=== PATIENT | female | born 1990 | race Caucasian/White ===

== ENCOUNTER 2019-02-26 13:23 | Emergency (ER) | payer OTHER, SELFPAY ==
[2019-02-26 13:24] VITALS: BP 132/78; PULSE 107; RESP 16; TEMP 36.7; O2SAT 95; BMI 30.2
--- NOTE | 2019-02-26 14:21 | ED.DCSUM_ITS ---
History of Present Illness Chief Complaint: Head Injury Informant: Patient Onset: Today Context: Sudden Onset Quality: Laceration forehead x2 Location: Left forehead Current Severity: Mild Maximum Severity: Moderate Worsened by: Adherence of towel to wound Relieved by: Nothing Associated Symptoms: No symptoms of concussion Narrative: Patient is a 28-year-old who was rushing to get both wounds to child's birthday constitution party. The trunk struck her forehead. She had no loss conscious. She denies any ocular, visual or auditory symptoms. She denies neck pain. Denies paresthesia, anesthesia motors. She denies photophobia. She denies feeling foggy or disoriented. There is been no nausea or vomiting. Tetanus status needs updated. - Past Medical History (1) No significant past medical history Status: Acute Past Medical History - Allergies and Home Meds Allergies/Adverse Reactions: Allergies No Known Allergies Allergy (Verified 02/26/19 13:28) Primary Care Physician: Tristin Verdugo DO [Primary Care Provider] - Prior records reviewed: Yes - [facility] my chart Past Medical History: None Lives: With Family Smoking Status: Never smoker Alcohol: None Review of Systems General: Denies: Chills, Fever, Sweats Eyes: Denies: Visual changes - bilaterally, Blurred Vision - bilaterally, Diplopia ENT: Denies: Bilateral ear pain, Rhinorrhea, Sore throat Gastrointestinal: Reports: Nausea, Vomiting Skin: Reports: Rash, Abrasions - Patient has a 3 cm x 0.5 cm tissue avulsion near the hairline. There is a 2 cm gaping wound with loss of tissue above the left brow., Wounds Hematologic: Reports: Easy bruising, Easy bleeding Allergy: Reports: Uticaria, Swelling of the mouth Physical Exam Vital Signs/Narrative: Vital Signs Temp Pulse Resp BP Pulse Ox 02/26/19 13:24 98.0 F 107 H 16 132/78 H 95 Inital Vital Signs reviewed: Yes General: Well nourished, Well developed, Acute Distress - Patient is visibly upset Head: Normocephalic, Trauma, Tenderness - There is no palpable depression. There is no clinical findings of basal skull fracture. Eyes: Perrl, EOMI. Negative for: Pale conjunctiva, Scleral icterus - There is no subconjunctival hemorrhage ENT: Moist mucous membranes, No rhinorrhea, TM's clear Neck: Supple, Nontender, No lymphadenopathy, No JVD, - - C-spine was cleared per Nexus criteria Cardiovascular: Regular rate, Regular rhythm, No murmurs Respiratory: No distress, CTA bilaterally, Chest nontender Neurological: Alert, Oriented x3, Cranial nerves II-XII grossly intact, Normal Strength, Normal Sensation, Normal DTR - There was no clonus or Babinski sign, Normal Gait Diagnostic/Tx/Re-eval - Medical Decision Making Patient has 2 lacerations. The inferior laceration will require repair. She was informed that the upper 1 may require referral to plastic surgeon. Procedures - Lacerations No standard instances Length: 0.79 in - Gaping with tissue loss Depth: There is a superior 3.5 cm laceration with tissue loss and down to dermis/subcutaneous tissue. This was not repaired Shape: Gaping laceration with tissue loss Prep: Sterile Conditions, Negin-Carlosns Laceration repair: Debrideded, - - Supratrochlear and supraorbital nerve block Irrigated (ml): 200 Number of Sutures/Niyah: 4 Suture Information: Vicryl, 6-0 ED Disposition - Plan for ED Patient: Disposition: Home or Assisted Living Diagnosis: Laceration of forehead, Tissue avulsion forehead Instructions: ED Laceration Facial Sutr Tape Referrals: Anant Boston MD [STAFF PHYSICIAN] - 1-2 Weeks Tristin Verdugo DO [Primary Care Provider] - 3-5 Days suture removal Additional Instructions: Clean wound that was sutured with peroxide and Q-tip 3 times a day then apply bacitracin ointment.
[2019-02-26 14:36] VITALS: PULSE 101; RESP 17; O2SAT 98
== END 2019-02-26 14:39 | disposition home or self-care (01) ==
PROVIDERS: Emergency Provider Emergency Medicine; Family Provider Student in an Organized Health Care Education/Training Program; PCP Student in an Organized Health Care Education/Training Program
DX: S01.81XA Laceration without foreign body of other part of head, initial encounter (principal); W22.8XXA Striking against or struck by other objects, initial encounter; Y93.89 Activity, other specified; Y92.9 Unspecified place or not applicable
CPT/HCPCS: 12011; 99283

== ENCOUNTER → 2019-06-01 13:01 | Outpatient (CLI) | payer OTHER, SELFPAY ==
[2019-06-01 12:37] VITALS: BMI 30.2
--- NOTE | 2019-06-01 13:05 | RAD_ITS ---
STUDY: X-RAY - RIGHT ANKLE REASON FOR EXAM: Female, 28 years old. Lateral swelling due to a twisting injury. TECHNIQUE: 3 view(s) of the ankle. COMPARISON: None. FINDINGS: Normal visualized distal tibia and fibula. Normal medial and lateral malleoli. Normal tibiotalar articulation and ankle mortise. Normal visualized talus and calcaneus. The visualized subtalar, talonavicular, calcaneocuboid and tarsal articulations are normal. Lateral soft tissue swelling. RAD/Ankle min 3 Views IMPRESSION: Lateral soft tissue swelling. Electronically Signed: Moe Rudd, at 14:20 EDT , Service support ,
--- NOTE | 2019-06-01 13:05 | RAD_ITS ---
STUDY: X-RAY - RIGHT FOOT CLINICAL: Female, 28 years old. Lateral swelling following a sprain. TECHNIQUE: 3 view(s) of the foot. COMPARISON: None. FINDINGS: Questionable nondisplaced avulsion fracture of the superior dorsal aspect of the talus. Normal visualized subtalar, talonavicular, calcaneocuboid, tarsal and tarsometatarsal articulations. Normal metatarsi. Normal metatarsophalangeal joint of the great toe. Normal tibial and fibular sesamoid bones. Normal interphalangeal joint of the great toe. Normal phalanges of the great toe. Normal second through fifth metatarsophalangeal joints. Normal interphalangeal joints and phalanges of the lesser toes. Lateral soft tissue swelling. RAD/Foot min 3 Views IMPRESSION: Soft tissue swelling. Questionable nondisplaced avulsion fracture along the superior dorsal aspect of the talus. Electronically Signed: Moe Rudd, at 14:21 EDT , Service support ,
== END ==
PROVIDERS: Family Provider Student in an Organized Health Care Education/Training Program; PCP Student in an Organized Health Care Education/Training Program; Referring Provider Physician Assistant; Visit Provider Physician Assistant
DX: S99.921A Unspecified injury of right foot, initial encounter (principal); S99.911A Unspecified injury of right ankle, initial encounter
CPT/HCPCS: 73610; 73630

== ENCOUNTER → 2020-08-03 17:12 | Outpatient (CLI) | payer OTHER, SELFPAY ==
[2019-06-01 12:37] VITALS: BMI 30.2
== END ==
PROVIDERS: PCP Student in an Organized Health Care Education/Training Program
DX: Z20.828 Contact with and (suspected) exposure to other viral communicable diseases (principal)
CPT/HCPCS: 87635; C9803; U0003

== ENCOUNTER 2020-08-29 18:46 | Emergency (ER) | payer OTHER, SELFPAY ==
[2019-06-01 12:37] VITALS: BMI 30.2
[2020-08-29 18:47] VITALS: BP 136/84; PULSE 107; RESP 18; TEMP 36.6; O2SAT 100; BMI 23.6
--- NOTE | 2020-08-29 18:59 | EKG12_ITS ---
Test Reason : CP Blood Pressure : / mmHG Vent. Rate : 082 BPM Atrial Rate : 082 BPM P-R Int : 132 ms QRS Dur : 074 ms QT Int : 350 ms P-R-T Axes : 019 066 041 degrees QTc Int : 408 ms Normal sinus rhythm Normal ECG Confirmed by PROSPER JONES, BERNICE ([id number]), editor school photograph YAHAIRA QUARLES ([id number]) on 09/04/2020 8:10:31 AM Referred By: GABRIELLE Confirmed By:BERNICE CHENG MD
--- NOTE | 2020-08-29 19:00 | CT_ITS ---
STUDY: CTA CHEST REASON FOR EXAM: Female, 29 years old. DYSPNEA, CP X 3 DAYS, FEVER, BACK PAIN, N/T L LEG RADIATION DOSAGE (If Supplied By Facility): CTDIvol = ( 4.855 ) mGy, DLP = ( 167.04 ) mGycm TECHNIQUE: The examination was performed with the intravenous administration of IV 75mL Isovue-370. Post-processing of the angiographic images was performed, with multiplanar reformation and 3D reconstruction. Individualized dose optimization techniques were used for this CT. COMPARISON: None. FINDINGS: Normal enhancement of the main pulmonary artery and right and left pulmonary arteries. Normal enhancement of the bilateral peripheral pulmonary arteries. There is no demonstrated pulmonary embolism. Normal thoracic aorta and visualized great vessels. There is no demonstrated aortic dissection. Normal heart and pericardium. Normal mediastinum. Normal hilar regions. Normal visualized trachea and bronchi. The lungs are well expanded. Normal pulmonary parenchyma. Normal pleura. Normal chest wall structures. Normal osseous structures. Normal visualized upper abdomen. CT/CTA Chest W/WO Contrast IMPRESSION: Normal CTA chest examination, without a demonstrated pulmonary embolism or arterial dissection. Electronically Signed: Ginette Flanagan MD at 20:27 EDT , Service support ,
--- NOTE | 2020-08-29 19:04 | ED.DCSUM_ITS ---
History of Present Illness Chief Complaint: Chest Pain Informant: Patient Onset: Days Context: Gradual Onset Timing: Intermittent Current Severity: Moderate Maximum Severity: Moderate Narrative: The patient is a 29-year-old female with no significant medical history the presents to the emergency department multiple complaints. The patient had mechanical fall in June. She struck her leg against the ladder for a trampoline. She states that she had ecchymosis and bruising. She states that since that time, she will have intermittent tingling around the lateral aspect of her left upper jim. She states it would seem to go away. Over the past 2 days, she states is been with increasing frequency. She denies any weakness in the leg. She denies any pain in her back. She is also concerned because for 2 weeks, she has had intermittent chest pain. She states that started after she was doing some sprints with her dog. She describes a sharp pain bandlike around her chest. A few days later, she began to have substernal heaviness. She states it would wax and wane. She is never had pain like this before. She has felt like she is had a low-grade fever, but never higher than 100. She denies weight loss or night sweats. She denies adenopathy. Prior similar symptoms: No Recent Illness/Hospitalization: No Past Medical History - Allergies and Home Meds Allergies/Adverse Reactions: Allergies No Known Allergies Allergy (Verified 08/29/20 18:46) Primary Care Physician: Tristin Verdugo DO [Primary Care Provider] - Prior records reviewed: Yes Past Medical History: None Surgical History: no surgical history Smoking Status: Never smoker Review of Systems General: Reports: Fever. Denies: Chills, Sweats Eyes: Denies: Visual changes - bilaterally, Diplopia ENT: Denies: Rhinorrhea, Sore throat Cardiovascular: Reports: Chest pain. Denies: Palpitations Respiratory: Reports: Cough. Denies: Dyspnea, Dyspnea on exertion Gastrointestinal: Denies: Abdominal pain, Nausea, Vomiting, Diarrhea, Melena, Hematochezia Genitourinary: Denies: Dysuria, Hematuria, Frequency Musculoskeletal: Reports: Myalgias. Denies: Back pain, Extremity Pain Skin: Denies: Rash, Wounds Neurological: Denies: Headache, Weakness, Numbness Physical Exam Vital Signs/Narrative: Vital Signs Temp Pulse Resp BP Pulse Ox 08/29/20 18:47 97.9 F 107 H 18 136/84 H 100 Inital Vital Signs reviewed: Yes General: Well nourished, Well developed, No Acute Distress Head: Normocephalic, Atraumatic Eyes: Perrl, EOMI ENT: Moist mucous membranes, No rhinorrhea Neck: Supple, Nontender Cardiovascular: Regular rate, Regular rhythm, No murmurs Respiratory: No distress, CTA bilaterally, Chest nontender Abdomen: Soft, Nontender, Nondistended, Normal bowel sounds Back: Nontender, Normal Inspection Extremities: Nontender, No edema Skin: Normal color, No rash Neurological: Alert, Oriented x3, Cranial nerves II-XII grossly intact, Normal Strength, Normal Sensation Psychological: Normal affect, Normal Mood Diagnostic/Tx/Re-eval Clinical Impression(s) from Imaging Studies Chest CTA 08/29/20 19:00 IMPRESSION: Normal CTA chest examination, without a demonstrated pulmonary embolism or arterial dissection. Electronically Signed: Ginette Flanagan MD at 20:27 EDT , Service support , Abnormal Lab Results 08/29/20 08/29/20 08/29/20 19:10 19:10 20:04 WBC 5.9 RBC 4.61 Hgb 13.5 Hct 41.0 MCV 88.9 MCH 29.3 MCHC 32.9 RDW Std Deviation 39.0 RDW Coeff of [place] 12.1 Plt Count 292 MPV 9.2 Immature Gran % (Auto) 0.200 Neut % (Auto) 53.4 Lymph % (Auto) 38.9 [place] % (Auto) 5.4 Eos % (Auto) 1.4 Baso % (Auto) 0.7 Absolute Neuts (auto) 3.2 Absolute Lymphs (auto) 2.30 Nucleated RBC % 0 Sodium 136 Potassium 3.3 L Chloride 102 Carbon Dioxide 28.0 Anion Gap 6 BUN 14 Creatinine 0.65 Estim Creat Clear Calc 107.54 Est GFR (MDRD) Af Amer 141 Est GFR (MDRD) Non-Af 116 BUN/Creatinine Ratio 21.6 H Glucose 103 Calcium 8.9 Total Bilirubin 0.80 AST 10 L ALT 26 Alkaline Phosphatase 72 Troponin I < 0.015 Total Protein 8.5 H Albumin 4.2 Globulin 4.3 H Albumin/Globulin Ratio 1.0 Urine Test Negative - Medical Decision Making The patient presents with intermittent chest pain and exertional dyspnea. She is also had tingling around the left head of the fibula after an injury. She has normal pulses in the lower extremities. She has normal sensation. There is no weakness of dorsiflexion, plantar flexion, or extensor hallucis longus. There is no palpable cord. She is had no back pain. I do suspect this might be a peroneal nerve neuropraxia from her prior injury. As far as her exertional chest pain and shortness of breath, metabolic work-up was pursued. EKG demonstrated sinus rhythm without acute ischemia. The patient was mildly tachycardic and I did not feel the d-dimer given her symptoms would be the appropriate test. IV was established. Screening labs including cardiac enzymes are normal. Patient underwent CTA. She has a normal cardiac silhouette, no pericardial effusion, no pneumothorax, and no pulmonary embolus. There is no lymphadenopathy or increased mediastinal girth. I do feel this may be pleurisy. I do not suspect a dangerous process especially given the chronicity of her symptoms and her negative work-up. At this point, I do feel that she is safe for outpatient follow-up. She is comfortable with this plan of care. Impression 1. Noncardiac chest pain 2. Dyspnea ED Disposition - Plan for ED Patient: Instructions: ED Chest Pain Pleurisy Prescriptions: Naproxen [Naprosyn] 500 mg PO BID PRN #20 tab Prescription Printed Referrals: Tristin Verdugo DO [Primary Care Provider] -
[2020-08-29 19:11] VITALS: BP 122/87; PULSE 82; RESP 14; O2SAT 99
[2020-08-29 19:17] LABS: Absolute Neutrophil Count 3.2 X10^3/uL (2.0-7.7); Basophil# 0.04 X10^3/uL; Basophil% 0.7 % (0-1); Eosinophil# 0.08 X10^3/uL; Eosinophils% 1.4 % (0-5); Hemoglobin 13.5 g/dL (12.0-15.0); Lymphocyte % 38.9 % (19-41); Mean Corp Hgb Conc 32.9 g/dL (32-36); Mean Corpuscular Hgb 29.3 pg (27.0-32.0); Mean Corpuscular Volume 88.9 fL (81-99); Mean Platelet Vol. 9.2 fl (6.2-12.0); Monocyte# 0.32 X10^3/uL; Monocyte% 5.4 % (0-10); NRBC Flagged by Analyzer 0 % (0-5); Neutrophil # 3.17 X10^3/uL (2.7-7.7); Neutrophil % 53.4 % (47-70); Platelet Count 292 K/mm3 (150-450); RBC Distribution Width CV 12.1 % (11.6-14.6); Red Blood Count 4.61 M/mm3 (4.2-5.4); White Blood Count 5.9 K/mm3 (4.4-11.0)
[2020-08-29 19:41] LABS: AST(SGOT) 10 U/L (15-37); Alanine Aminotransfer ALT/SGPT 26 U/L (13-56); Albumin, Serum 4.2 g/dL (3.2-5.0); Alkaline Phosphatase 72 U/L (45-117); Anion Gap 6 (5-15); BUN 14 mg/dL (7-18); BUN/Creat Ratio 21.6 RATIO (10-20); Calcium,Total 8.9 mg/dL (8.5-10.1); Chloride 102 mmol/L (98-107); Creatinine, Serum 0.65 mg/dL (0.55-1.02); EST Glomerular Filtration Rate 116 mL/min (>60); Est Glom Filt Rate - Afr Amer 141 mL/min (>60); Estimated Creatinine Clearance 107.54 ml/min; Globulin 4.3 g/dL (2.2-4.2); Glucose 103 mg/dL (74-106); Potassium 3.3 mmol/L (3.5-5.1); Protein, Total 8.5 g/dL (6.4-8.2); Sodium Level 136 mmol/L (136-145)
[2020-08-29 20:14] LABS: Internal QC Validated? YES +Cl - CLEAR BKGD; Pregnancy, Urine Negative Negative
[2020-08-29 20:54] VITALS: BP 122/86; PULSE 89; RESP 16
== END 2020-08-29 21:06 | disposition home or self-care (01) ==
PROVIDERS: Emergency Provider Emergency Medicine; PCP Student in an Organized Health Care Education/Training Program
DX: R07.89 Other chest pain (principal); R06.00 Dyspnea, unspecified
CPT/HCPCS: 71275; 80053; 81025; 84484; 85025; 93005; 96360; 99281; 99285; J7040; Q9967; A4216

== ENCOUNTER 2021-05-03 13:05 | Emergency (ER) | payer OTHER, SELFPAY ==
[2021-05-03 11:27] VITALS: BMI 23.6
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
[2021-05-03 13:12] VITALS: BP 117/88; PULSE 94; RESP 17; TEMP 36.9; O2SAT 100; BMI 23.0
== END 2021-05-03 14:48 | disposition home or self-care (01) ==
PROVIDERS: Emergency Provider Emergency Medicine; PCP Student in an Organized Health Care Education/Training Program
DX: S00.83XA Contusion of other part of head, initial encounter (principal); S20.219A Contusion of unspecified front wall of thorax, initial encounter; V43.52XA Car driver injured in collision with other type car in traffic accident, initial encounter
CPT/HCPCS: 71101; 99284

== ENCOUNTER 2022-02-10 10:30 | Outpatient (RCR) | payer OTHER, SELFPAY | END 2022-02-13 23:59 | LOC: DC 10:30 | PROVIDERS: PCP Student in an Organized Health Care Education/Training Program; Referring Provider Obstetrics & Gynecology; Visit Provider Obstetrics & Gynecology | DX: Z71.3 Dietary counseling and surveillance (principal); O24.419 Gestational diabetes mellitus in pregnancy, unspecified control | CPT/HCPCS: 97802; G0108 ==

== ENCOUNTER 2022-02-24 10:48 | Outpatient (RCR) | payer OTHER, SELFPAY | END 2022-03-15 23:59 | LOC: DC 10:48 | PROVIDERS: PCP Student in an Organized Health Care Education/Training Program; Referring Provider Obstetrics & Gynecology; Visit Provider Obstetrics & Gynecology | DX: Z71.3 Dietary counseling and surveillance (principal); O24.419 Gestational diabetes mellitus in pregnancy, unspecified control ==

== ENCOUNTER 2022-03-05 17:20 | Inpatient (IN) | payer OTHER, SELFPAY ==
[2022-03-05] VITALS (27 sets, daily range): BP systolic 132–143; BP diastolic 62–80; PULSE 80–98; TEMP 36.6–36.7; O2SAT 82–100; BMI 30.4
[2022-03-05] MEDS: Lactated Ringers 1,000 ML 50 ML IV (17:40)
[2022-03-05] MEDS: Oxytocin 30 units/NS 500 ml 30 UNITS/500 ML IV.SOLN 334 UNITS IV (18:07)
--- NOTE | 2022-03-05 18:11 | PCM.HP.OB ---
HPI - General General Date of Admission: 03/05/22 HPI Narrative OSVALDO PIERCE, is a 31 F @ 39 weeks who presents with SROM 3pm and in active labor 8cm. Maternal Data Information Final JOSEPHINE: 03/11/22 Final JOSEPHINE Source: US <20 weeks Gestational age: 39.1 PFSH PFSH Home Medications multivitamin 1 cap PO DAILY 06/01/19 [History Last Taken Unknown] naproxen 500 mg PO BID PRN #20 tab 08/29/20 [Rx Last Taken Unknown] azithromycin 250 mg tablet See Rx Instructions PO .COMPLEX #6 tab 05/03/21 [Rx Last Taken Unknown] Allergy/AdvReac Type Severity Reaction Status Date / Time No Known Allergies Allergy Verified 05/03/21 11:27 Family History Other Anemia Heart disease Hypertension Suicide attempt Social History Smoking Status: Never smoker alcohol intake: never substance use type: does not use additional social history: DOES NOT USE ASPIRIN DOES USE IBUPROFEN History Elective abortions Hx Para 0 Spontaneous abortions Hx # Term Pregnancies Ectopic pregnancies Hx # Pregnancies Multiple births # of living children Physical Exam Const alert and oriented x3 General Appearance: cooperative HEENT normocephalic GI GI Narrative: Gravid, non tender to palpation. OB / External & Speculum: external exam normal Extremity normal to inspection Skin no rashes or lesions noted Neuro oriented x3 and CN's II-XII intact bilaterally Psych Appearance: grossly normal Labs Labs Labs: Blood Type B POSITIVE Antibody Screen NEGATIVE Hct 41.0 % (37-47) Hgb 13.5 g/dL (12.0-15.0) Rhogam given: No Assessment & Plan (1) Active labor at term: (2) Gestational diabetes: QUALIFIERS: Gestational diabetes mellitus control: diet-controlled Trimester: third trimester Qualified Code(s): O24.410 - Gestational diabetes mellitus in , diet controlled PLAN: Admit to L&D [place] FHR/TOCO Monitor VS Anticipate
--- NOTE | 2022-03-05 18:12 | EX.PCM.OBRPT ---
Assessment & Plan (1) Vaginal delivery: Vaginal Delivery Maternal Presentation Maternal Presentation: Active Labor and Spontaneous Rupture of Membranes Operative Information Date of Procedure: 03/05/22 Pre-Operative Diagnosis: term gestation 39 weeks, GDMA1, active labor Post-Operative Diagnosis: same, live female Surgery / Procedure Performed: Spontaneous Vaginal Delivery Type of Anesthesia: None Estimated Blood Loss: 200 Time of Delivery: 18:01 Findings Description of Procedure: I was called notified the patient was complete and +2. Upon my arrival with good maternal pushing efforts the infant's head was delivered without complication. Gentle downward traction and good maternal pushing efforts over the anterior shoulder followed by the rest the 's body. The infant was placed on the mother's chest he was vigorous at time of . Delayed cord clamping until pulsation was stopped was performed per mother's request. Perineum and vagina were intact. Placenta was delivered intact without complication. Presentation: Vertex Amniotic Membrane Rupture Type: Spontaneous Amniotic Fluid Description: Clear Placental Delivery Description: Spontaneous Placenta Disposition: [facility] Specimen(s) Removed: placenta Cord Vessel Description: 3 Vessels Cord Entanglement: None Nuchal Cord Compression: Without compression A Gender: Female (1 minute): 9 (5 minute): 10 Delayed Cord Clamping: Yes Post Vaginal Delivery Medications Given After Delivery: IV Pitocin Episiotomy Description: None Laceration: None Complication Complications: None
[2022-03-05 18:19] LABS: Absolute Lymphocyte Count 2.82 X10^3/uL (0.83-4.51); Basophil# 0.04 X10^3/uL; Basophil% 0.3 % (0-1); Eosinophil# 0.04 X10^3/uL; Eosinophils% 0.3 % (0-5); Hematocrit 36.2 % (37-47); Hemoglobin 12.3 g/dL (12.0-15.0); Lymphocyte # 2.82 X10^3/ul (0.83-4.51); Lymphocyte % 18.8 % (19-41); Mean Corpuscular Hgb 28.7 pg (27.0-32.0); Mean Corpuscular Volume 84.4 fL (81-99); Mean Platelet Vol. 10.7 fl (6.2-12.0); Monocyte# 1.08 X10^3/uL; Monocyte% 7.2 % (0-10); NRBC Flagged by Analyzer 0 % (0-5); Neutrophil # 10.99 X10^3/uL (2.7-7.7); Platelet Count 288 K/mm3 (150-450); RBC Distribution Width CV 14.5 % (11.6-14.6); RBC Distribution Width SD 44.7 fl (35.1-43.9); Red Blood Count 4.29 M/mm3 (4.2-5.4)
[2022-03-05 18:35] LABS: Bedside Glucose 95 mg/dL (74-106)
[2022-03-05] MEDS: Ibuprofen 600 MG Tablet PO (22:11)
[2022-03-06 00:15] VITALS: BP 143/78; PULSE 101; RESP 16; TEMP 36.1
[2022-03-06 04:00] VITALS: BP 116/64; PULSE 97; RESP 15; TEMP 36.9
[2022-03-06 06:21] LABS: Bedside Glucose 81 mg/dL (74-106)
[2022-03-06 07:39] VITALS: BP 126/81; PULSE 82; RESP 16; TEMP 36.4
[2022-03-06 11:56] VITALS: BP 118/78; PULSE 70; RESP 16; TEMP 36.5
--- NOTE | 2022-03-06 12:57 | PN.OBGYN_ITS ---
Subjective Subjective pain well controlled, average lochia Objective Data Objective Data Vital Signs: Vital Signs Temp Pulse Resp BP Pulse Ox 97.7 F L 70 16 118/78 97 03/06/22 11:56 03/06/22 11:56 03/06/22 11:56 03/06/22 11:56 03/06/22 09:45 Oxygen Delivery Method Room Air Weight: 78.1 kg Body Mass Index (BMI) 30.4 Intake & Output: Intake and Output for Last 24 Hours 03/04/22 03/05/22 03/06/22 23:59 23:59 23:59 Intake Total 517.5 / 517.5 Balance 517.5 / 517.5 Lab / Micro Data Result Diagrams: 03/05/22 17:40 Labs: Laboratory Results - last 24 hr 03/05/22 17:40: WBC 15.0 H, RBC 4.29, Hgb 12.3, Hct 36.2 L, MCV 84.4, MCH 28.7, MCHC 34.0, RDW Std Deviation 44.7 H, RDW Coeff of [place] 14.5, Plt Count 288, MPV 10.7, Immature Gran % (Auto) 0.400, Neut % (Auto) 73.0 H, Lymph % (Auto) 18.8 L, [place] % (Auto) 7.2, Eos % (Auto) 0.3, Baso % (Auto) 0.3, Absolute Neuts (auto) 11.0 H, Absolute Lymphs (auto) 2.82, Nucleated RBC % 0 03/05/22 17:40: Blood Type B POSITIVE, Antibody Screen NEGATIVE 03/05/22 18:26: POC Glucose 95 03/06/22 06:10: POC Glucose 81 Physical Exam Const alert and no apparent distress Narrative: Fundus firm, below umbilicus. Assessment & Plan (1) Vaginal delivery: PLAN: PPD#1 s/p and doing well desires d/c home today
--- NOTE | 2022-03-06 12:58 | PCM.DC.SUM ---
Providers Date of Admission: 03/05/22 Primary Care Physician: Dr. Tristin Verdugo DO Reason For Visit: VAGINAL DELIVERY Diagnosis Discharge Diagnosis (1) Vaginal delivery: Status: Acute Code(s): O80 - Encounter for full-term uncomplicated delivery Medications at Discharge Home Medications multivitamin 1 cap PO DAILY 06/01/19 iron 65 tab PO 03/05/22 Hospital Course Operations None Procedures None Summary of Care Provided Hospital Course: 31-year-old 2 para 1 admitted at 39+ weeks for spontaneous labor. She had a vaginal delivery on 03/05/2022 to without complication. By day #1 she was doing well, was breast-feeding and doing well and patient desired discharge home Weight / BMI Weight Weight: 78.1 kg Body Mass Index (BMI) 30.4 ABG / Lab / Microbiology Data Result Diagrams: 03/05/22 17:40 Laboratory: Laboratory Results - last 24 hr 03/05/22 17:40: WBC 15.0 H, RBC 4.29, Hgb 12.3, Hct 36.2 L, MCV 84.4, MCH 28.7, MCHC 34.0, RDW Std Deviation 44.7 H, RDW Coeff of [place] 14.5, Plt Count 288, MPV 10.7, Immature Gran % (Auto) 0.400, Neut % (Auto) 73.0 H, Lymph % (Auto) 18.8 L, [place] % (Auto) 7.2, Eos % (Auto) 0.3, Baso % (Auto) 0.3, Absolute Neuts (auto) 11.0 H, Absolute Lymphs (auto) 2.82, Nucleated RBC % 0 03/05/22 17:40: Blood Type B POSITIVE, Antibody Screen NEGATIVE 03/05/22 18:26: POC Glucose 95 03/06/22 06:10: POC Glucose 81 D/C Instructions Discharge Diet: No restrictions May resume sexual activity in: 6 weeks Call your doctor if your incision/area has: Continuous Slow Oozing, Sudden Increased Bleeding, Foul Smelling Discharge and Swelling at the incision site Call your doctor if you observe: Fever of 101 or Higher and Inability to urinate Please Follow Up With: Susie Schafer MD When: Follow up with our office in 1-2 and 6 weeks or as needed. [phone] Meaningful Use Info Meaningful Use Diagnoses (Choose all that apply): None applicable Discharge Plan Admission Admit Date/Time: 03/05/22 17:20 Primary Reason for Your Visit: vaginal delivery Attending Provider: Meghna Green Primary Care Provider: Tristin Verdugo Discharge Orders/Prescriptions Prescriptions: No Action multivitamin capsule capsule 1 cap PO DAILY RF: 0 iron 50 mg iron Tablet 65 tab PO RF: 0 Referrals / Follow Up: Tristin Verdugo DO [Primary Care Provider] - Disposition Disposition (needs filled in before D/C Order can be placed): Home, Self Care
[2022-03-06 16:56] VITALS: BP 135/85; PULSE 72; RESP 16; TEMP 36.4; O2SAT 97
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
--- NOTE | 2022-03-06 19:47 | NURSING ---
This RN has reviewed and agrees with charting completed by Tashia Anguiano, orienting RN
--- NOTE | 2022-03-10 15:45 | NURSING ---
Follow up phone call attempted, no answer, left message
== END 2022-03-06 19:45 | disposition home or self-care (01) | DRG 807 ==
PROVIDERS: Admitting Provider Obstetrics & Gynecology; PCP Student in an Organized Health Care Education/Training Program; Visit Provider Obstetrics & Gynecology
DX: O42.02 Full-term premature rupture of membranes, onset of labor within 24 hours of rupture (principal); Z37.0 Single live birth; O24.410 Gestational diabetes mellitus in pregnancy, diet controlled; Z3A.39 39 weeks gestation of pregnancy
CPT/HCPCS: 59025; 59050; 82962; 85025; 86850; 86900; 86901; 99218; J7120; G0378

== ENCOUNTER 2022-12-27 17:52 | Emergency (ER) | payer OTHER, SELFPAY ==
[2022-12-27 17:53] VITALS: BP 144/102; PULSE 95; RESP 18; TEMP 36.5; O2SAT 100; BMI 24.7
--- NOTE | 2022-12-27 18:15 | ED.VIS.FEGU ---
HPI HPI - Female History of Present Illness Chief Complaint: Vag Bleeding Informant: patient Pain Pain: Negative for Pelvic Pain Bleeding Issue: Positive for Vaginal bleeding Onset: Today Context: Gradual Onset Timing: Intermittent Current Severity: Mild Associated Symptoms Associated Symptoms: Negative for Dysuria, Frequency or Urgency P: 2 Ab: 0 Narrative Narrative: 32-year-old female noticing a past medical history. 2 days ago on had her IUD removed at her [facility] OPERATOR's office. It had been in a month. She was having side effects to it and had it taken out. Since it was removed she has had some mild vaginal bleeding. Said she felt feverish but her temperature was only 99.5. Mild chills. No dysuria. No discharge. Recently had a cold. Denies any abdominal pain or shortness of breath. No earache or sore throat. Prior similar symptoms: Yes Recent Illness/Hospitalization: No PFSH PFS Medical History (Updated 12/27/22 @ 19:[address] Leonard Alcocer MD) Gestational diabetes Right ankle sprain Right foot sprain Vaginal delivery Home Medications NK 12/27/22 [History Last Taken Unknown] Allergy/AdvReac Type Severity Reaction Status Date / Time No Known Allergies Allergy Verified 12/27/22 17:53 Family History Other Anemia Heart disease Hypertension Suicide attempt Social History Smoking Status: Never smoker alcohol intake: never substance use type: does not use additional social history: DOES NOT USE ASPIRIN DOES USE IBUPROFEN ROS ROS ED ROS Narrative Chills. Subjective fever. Vaginal bleeding. Review of Systems ROS Unobtainable: Denies due to encephalopathy Constitutional Constitutional ED: Denies chills or fever(s) Eyes Eyes: Denies blurry vision ENT ENT ED: Denies ear pain Cardiovascular Cardiovascular: Denies chest pain Respiratory/Chest Respiratory/Chest: Denies cough or dyspnea Gastrointestinal Gastrointestinal: Denies abdominal pain, constipation, diarrhea, melena, nausea or vomiting Genitourinary Genitourinary ED: Denies dysuria or hematuria Musculoskeletal Musculoskeletal: Denies arthralgias Integumentary Denies abscess Neurologic Neurologic: Denies headache(s) Psychiatric Psychiatric: Denies anxiety Endocrine Endocrinology: Denies heat intolerance Hematologic/Lymphatic Hematologic/Lymphatic: Denies easy bleeding Allergic/Immunologic Allergic/Immunologic ED: Denies mouth swelling or tongue swelling EXAM Physical Exam Narrative Exam Narrative: 32-year-old female no acute distress. Vital signs stable afebrile. Her current temperature is 97.7. She has not taken any antipyretics. She does not look septic or toxic. She is not dehydrated. She is in no distress. H EENT exam unremarkable. Neck nontender no lymphadenopathy. Lungs clear to auscultation. Heart regular rhythm no murmur. Abdomen soft nontender. Normal bowel sounds no peritoneal signs. Moving all 4 extremities. Calves are nontender without edema. Neurologically she is awake and alert. Const Vital Signs: 12/27/22 17:53 Temperature 97.7 F L Temperature Source Temporal Pulse Rate 95 Respiratory Rate 18 Blood Pressure 144/102 H Blood Pressure Mean 116 Pulse Ox 100 Oxygen Delivery Method Room Air Positive well nourished and well developed; Negative for obese, cachectic, contractures or unkempt General Appearance ED: well developed and NAD; Negative for unkempt, cachectic, contractures or pallor Nutritional Appearance: Negative for cachectic or obese HEENT Reports moist mucous membranes; Denies dry mucous membranes Negative for trauma or tenderness Mouth ED: No dry mucous membranes Mouth: No dry mucous membranes Eyes PERRL and EOMs intact bilaterally General Eye ED: Negative for pale conjunctiva or scleral icterus Neck no lymphadenopathy, supple and no JVD General: Negative for other Lymph Lymphatic: Negative for other Chest Wall inspection of chest normal and palpation of chest normal Chest: Negative for other Resp normal respiratory effort and clear to auscultation bilaterally Effort and Inspection: Negative for pain with movement Auscultation: Negative for rales, rhonchi or wheezes Cardio regular rate, regular rhythm, S1 normal heart sound, no murmurs and no JVD Rate: Negative for bradycardia or tachycardic Rhythm: Negative for abnormal rhythm GI normal to inspection, nondistended, normoactive bowel sounds, soft to palpation, non-tender, non-distended and no masses Auscultation: normoactive bowel sounds Palpation: Negative for tender, guarding or rigid Back/Spine no CVA tenderness General Back: Negative for CVA tenderness Cervical Spine: Negative for cervical spine tenderness Thoracic Spine / Upper Back: Negative for thoracic spinal tenderness Lumbar Spine / Lower Back: Negative for lumbar spinal tenderness Sacrum: Negative for other Extremity normal to inspection and full ROM General Extremety ED: Negative for edema or tenderness General Extremity: Negative for edema Neuro oriented x3 and CN's II-XII intact bilaterally Sensorium / Orientation: alert, oriented to person, oriented to place and oriented to time Motor Exam: strength 5/5 throughout Psych mental status grossly normal Appearance: Negative for unkempt Attitude: No agitated Speech: No other Mood & Affect: Negative for depressed, anxious or tearful Skin no rashes or lesions noted and no wounds General Skin Exam: Negative for jaundice or pallor Rashes: No rashes noted Trauma: Negative for other MDM MDM MDM Narrative Medical decision making narrative: 32-year-old with vaginal bleeding after having her IUD removed. Clinically looks well. Subjectively felt like she was having a fever but has no signs of infection and no fever here. Check a urinalysis for possible UTI, urine . Internal pelvic exam when the nurse becomes available. I suspect the bleeding is from the IUD being removed. She is having no discharge. Repeat exam doing well at 7:16 PM. Nurse present in the room Pelvic exam. There is a small amount of blood from the cervix. No heavy bleeding or clots. No discharge. On bimanual exam she had no uterine or adnexal tenderness. I went over her test results with her she will be discharged home. Outpatient follow-up with her AMMONIA OPERATOR Dr. Medellin. Lab Data Attestation: I reviewed the patient's lab results. Lab results narrative: Urine test negative. Urinalysis shows 5-10 red cells. No white cells. No bacteria and no nitrites. 150 occult blood. No signs UTI. Labs: Laboratory Results - last 24 hr 12/27/22 12/27/22 18:20 18:20 Urine Color Yellow Urine Clarity Clear Urine pH 7.0 Ur Specific [place] 1.015 Urine Protein Negative Urine Glucose (UA) Normal Urine Ketones Negative Urine Occult Blood 150 H Urine Nitrite Negative Urine Bilirubin Negative Urine Urobilinogen Normal Ur Leukocyte Esterase Negative Urine RBC 5-10 SEEN Urine WBC 0 SEEN Ur Squamous Epith Cells 0 SEEN Urine Bacteria 0 SEEN Urine Mucus 0 SEEN Urine Test Negative Discharge Plan Triage Chief Complaint: Vag Bleeding Other Complaint: Fever ED Provider: Leonard Alcocer Dx/Rx/DC Orders Clinical Impression: Vaginal bleeding Instructions: ED Dysfunctional Uterine Bleeding Prescriptions: No Action NK Primary Care Provider: Tristin Verdugo Referrals: Meghna Green MD [Med Staff - Active Staff] - As soon as possible Tristin Verdugo, [Primary Care Provider] - Activity Restrictions/Additional Instructions: Plenty of fluids and rest. No heavy lifting. No intercourse. Pelvic rest. Call and follow-up with your [facility] OPERATOR on Thursday. Unlikely but if you develop heavy vaginal bleeding with clots you need to return. You may have some continued bleeding goal at that surprise you. This should progressively get better and resolved. There is no signs of infection at this time. Disposition Disposition: Home, Self Care
[2022-12-27 18:25] LABS: Bacteria 0 SEEN /hpf (None Seen); Mucous, Urine 0 SEEN /hpf (<or=2+); Squamous Epithelial Cells - UA 0 SEEN /hpf (5-10); White Blood Cells 0 SEEN /hpf (0-5)
[2022-12-27 18:26] LABS: Color, Urine Yellow (Yellow); Glucose, Dipstick Normal (Normal); Ketone-Dipstick Negative (Negative); Leukocyte Esterase-Dipstick Negative /ul (Negative); Nitrite-Dipstick Negative (Negative); Occult Blood-Urine 150 /ul (Negative); Protein-Dipstick Negative (Negative); Specific Gravity, Urine 1.015 (1.002-1.030); Urine Bilirubin Dipstick Negative (Negative); Urine Clarity Clear (Clear); Urine Urobilinogen Normal (Normal)
[2022-12-27 18:46] LABS: Red Blood Cells-Urine 5-10 SEEN /hpf (0-5)
[2022-12-27 19:02] LABS: Internal QC Validated? YES +Cl - CLEAR BKGD; Pregnancy, Urine Negative Negative
== END 2022-12-27 19:28 | disposition home or self-care (01) ==
PROVIDERS: Emergency Provider Emergency Medicine; PCP Student in an Organized Health Care Education/Training Program; Visit Provider Emergency Medicine
DX: N93.9 Abnormal uterine and vaginal bleeding, unspecified (principal)
CPT/HCPCS: 81001; 81025; 99282

== ENCOUNTER 2022-12-28 23:24 | Emergency (ER) | payer OTHER, SELFPAY ==
[2022-12-28 23:24] VITALS: BP 138/94; BP 149/83; PULSE 110; PULSE 98; RESP 15; RESP 16; TEMP 36.8; O2SAT 94; O2SAT 98; BMI 25.3
[2022-12-29 00:08] LABS: Mucous, Urine 0 SEEN /hpf (<or=2+); Squamous Epithelial Cells - UA 0 SEEN /hpf (5-10); White Blood Cells 0 SEEN /hpf (0-5)
[2022-12-29 00:10] LABS: Absolute Lymphocyte Count 2.68 X10^3/uL (0.83-4.51); Absolute Neutrophil Count 2.9 X10^3/uL (2.0-7.7); Basophil# 0.03 X10^3/uL; Basophil% 0.5 % (0-1); Eosinophil# 0.09 X10^3/uL; Eosinophils% 1.5 % (0-5); Hematocrit 43.7 % (37-47); Hemoglobin 14.6 g/dL (12.0-15.0); Lymphocyte # 2.68 X10^3/ul (0.83-4.51); Lymphocyte % 44.3 % (19-41); Mean Corp Hgb Conc 33.4 g/dL (32-36); Mean Corpuscular Hgb 29.7 pg (27.0-32.0); Mean Platelet Vol. 9.1 fl (6.2-12.0); NRBC Flagged by Analyzer 0 % (0-5); Neutrophil # 2.94 X10^3/uL (2.7-7.7); Neutrophil % 48.5 % (47-70); Platelet Count 287 K/mm3 (150-450); RBC Distribution Width CV 12.1 % (11.6-14.6); RBC Distribution Width SD 39.6 fl (35.1-43.9); Red Blood Count 4.91 M/mm3 (4.2-5.4); White Blood Count 6.1 K/mm3 (4.4-11.0)
[2022-12-29 00:19] LABS: Internal QC Validated? YES +Cl - CLEAR BKGD; Pregnancy, Serum, hCG Quali. NEGATIVE Negative
[2022-12-29 00:23] LABS: Anion Gap 6 (5-15); BUN 15 mg/dL (7-18); BUN/Creat Ratio 25.8 RATIO (10-20); Calcium,Total 9.2 mg/dL (8.5-10.1); Chloride 106 mmol/L (98-107); Color, Urine Yellow (Yellow); Creatinine, Serum 0.58 mg/dL (0.55-1.02); EST Glomerular Filtration Rate 129 mL/min (>60); Est Glom Filt Rate - Afr Amer 157 mL/min (>60); Estimated Creatinine Clearance 117.32 ml/min; Glucose 104 mg/dL (74-106); Glucose, Dipstick Normal (Normal); Ketone-Dipstick 15 mg/dl (Negative); Leukocyte Esterase-Dipstick Negative /ul (Negative); Nitrite-Dipstick Negative (Negative); Occult Blood-Urine 250 /ul (Negative); Potassium 4.1 mmol/L (3.5-5.1); Protein-Dipstick Negative (Negative); Sodium Level 141 mmol/L (136-145); Specific Gravity, Urine 1.015 (1.002-1.030); Urine Bilirubin Dipstick Negative (Negative); Urine Clarity Clear (Clear); Urine Urobilinogen Normal (Normal)
--- NOTE | 2022-12-29 00:24 | CT_ITS ---
STUDY: CT ABDOMEN AND PELVIS WITH CONTRAST REASON FOR EXAM: Female, 32 years old. Abd pain RADIATION DOSAGE (If Supplied By Facility): CTDIvol = ( 10.33 ) mGy, DLP = ( 380.33 ) mGycm TECHNIQUE: Transaxial images were obtained from the dome of the diaphragm to the symphysis pubis without oral contrast. IV 100mL Isovue-370 was administered. Sagittal and coronal images were reconstructed. Individualized dose optimization techniques were used for this CT. COMPARISON: Limited comparison CT anterior chest August 29, 2020. FINDINGS: The visualized lung bases are unremarkable. The visualized portions of the heart are within normal limits. There is decreased attenuation of the liver consistent with steatosis. Normal gallbladder and extrahepatic biliary system. Normal spleen. Normal pancreas. Normal bilateral adrenal glands. Normal right kidney. Normal left kidney. Normal visualized stomach. Normal small intestine. There is moderate stool in the colon. There is abundant stool in the rectum and the sigmoid colon. The appendix is visualized and appears normal. Normal abdominal aorta. Normal inferior vena cava. Normal retroperitoneum. Normal urinary bladder. Normal visualized uterus. Normal abdominal wall. There is a pattern of multilevel Schmorl''s nodes in the thoracic spine. CT/Abdomen/Pelvis W IV Cont ONLY IMPRESSION: Constipation. Abundant stool within the sigmoid and rectum could consider fecal impaction. No appendicitis. No hydronephrosis. Electronically Signed: Evelyn Polo MD at 1:19 EST ,
[2022-12-29] MEDS: 0.9% Normal Saline 1,000 ML 999 ML IV (00:33)
[2022-12-29 00:47] LABS: Bacteria RARE /hpf (None Seen); Red Blood Cells-Urine 0-5 SEEN /hpf (0-5)
[2022-12-29 00:54] LABS: Magnesium 1.9 mg/dL (1.6-2.6)
[2022-12-29 01:17] VITALS: BP 105/84; PULSE 124; RESP 15; O2SAT 100
--- NOTE | 2022-12-29 02:10 | EDS_ITS ---
HPI History of Present Illness Chief Complaint: Abd Pain Narrative Narrative: Patient is a 32-year-old female who reports she was having abdominal discomfort and so she had her SENIOR JAVA DEVELOPER remove her IUD. She states after this was done she started feeling better for a few days and then developed some increased pain so return to the ER. At that time blood work was performed which revealed no clinically significant findings and she was discharged home. Patient states that since returning home she had increase in the severity of her pain and she remembered that prior to the increase in her pain she had tripped and struck her lower abdomen into the edge of a cabinet. She states she does not have a history of bleeding disorder or does she take blood thinners. She states however that with her symptoms she is concerned with internal bleeding as she does have a friend of the family who developed this after a mild abdominal trauma and secondary to this concern presents for evaluation. [facility] Medical History (Updated 12/29/22 @ 07:[address] Jarret Davis DO) Gestational diabetes Right ankle sprain Right foot sprain Vaginal delivery Home Medications NK 12/27/22 [History Last Taken Unknown] Allergy/AdvReac Type Severity Reaction Status Date / Time No Known Allergies Allergy Verified 12/28/22 23:28 Family History Other Anemia Heart disease Hypertension Suicide attempt Social History Smoking Status: Never smoker alcohol intake: never substance use type: does not use additional social history: DOES NOT USE ASPIRIN DOES USE IBUPROFEN ROS ROS ED Constitutional Constitutional ED: Denies chills or fever(s) ENT ENT ED: Denies sore throat Cardiovascular Cardiovascular: Denies chest pain Respiratory/Chest Respiratory/Chest: Denies cough or dyspnea Gastrointestinal Gastrointestinal: Reports abdominal pain and nausea; Denies diarrhea or vomiting Genitourinary Genitourinary ED: Denies dysuria Musculoskeletal Musculoskeletal: Denies back pain or myalgias Integumentary Denies Abrasions or rash Neurologic Neurologic: Denies headache(s) Hematologic/Lymphatic Hematologic/Lymphatic: Denies easy bleeding or easy bruising EXAM Physical Exam Const Vital Signs: 12/28/22 23:24 12/28/22 23:24 12/29/22 01:17 Temperature 98.2 F Temperature Source Temporal Pulse Rate 98 110 H 124 H Respiratory Rate 16 15 15 Blood Pressure 138/94 H 149/83 H 105/84 H Blood Pressure Mean 108 105 91 Pulse Ox 98 94 100 Oxygen Delivery Method Room Air Room Air Room Air Positive well nourished and well developed General Appearance ED: well developed HEENT Reports moist mucous membranes Eyes PERRL and EOMs intact bilaterally General Eye ED: Negative for pale conjunctiva Neck supple Chest Wall palpation of chest normal Resp normal respiratory effort and clear to auscultation bilaterally Cardio regular rate and regular rhythm Rate: other Other Details: Radial pulses are plus 2 out of 4 bilaterally are equal and symmetric Carotid pulses equal and symmetric as well GI non-distended GI Narrative: Abdomen is soft and nondistended with normoactive bowel sounds. Patient has pain with palpation across the lower abdomen diffusely without voluntary guarding or rigidity. No pulsatile mass or fluid wave. No overlying soft tissue changes such as ecchymosis or erythema to suggest infection or trauma Auscultation: normoactive bowel sounds Palpation: soft Extremity normal to inspection Neuro oriented x3 and CN's II-XII intact bilaterally Sensorium / Orientation: alert Psych Psych Narrative: Patient has a nervous/anxious affect Skin no rashes or lesions noted General Skin Exam: Negative for jaundice MDM MDM MDM Narrative Medical decision making narrative: Patient presented to the ER with stable vitals and a nonsurgical abdomen. She reported that she had a low mechanism of injury as she fell into the cabinet door from a standing position. She does not have a history of bleeding disorder nor does she take blood thinner. The injury occurred approximately 24 hours ago and on physical exam she does not have overlying abrasions or ecchymosis to suggest underlying internal injury such as splenic laceration or duodenal hematoma. Because of the patient's report of trauma and increased pain I do have concern for this however even though the exam does not correlate with an internal injury and I like to perform a CT scan with IV contrast. CT scan showed changes consistent with constipation/fecal impaction but otherwise no c linically significant findings such as perforation or internal bleeding. On reevaluation the abdomen remains soft and nonsurgical and as the abdomen is not bruised or rigid I do feel that the CAT scan is correct and his diagnosis of no internal pathology. The patient has also demonstrated bouts of increased anxiety during the visit as she reported after my first initial palpation of her abdomen that her hands and feet began to lock up. I offered multiple times to provide the patient with pain meds or anxiety meds which she refused. We also discussed possible enema or laxative based on the CT read of constipation versus fecal impaction. However patient states she has had a bowel movement and does not want these medications. At this time patient does not have acute anemia she does not have signs of acute kidney injury or electrolyte derangement and CAT scan is showing no signs of perforation or internal bleeding. Moreover her abdomen remains soft and nonsurgical. Based on the 24 hours out from time of injury I do feel that if she had perforation or some type of internal laceration that we would see external signs as well as internal findings on CAT scan. As these were not found I do not feel patient warrants admission and is otherwise safe for discharge. Lab Data Attestation: I reviewed the patient's lab results. Labs: Laboratory Results - last 24 hr 12/28/22 12/28/22 12/28/22 23:57 23:57 23:57 WBC 6.1 RBC 4.91 Hgb 14.6 Hct 43.7 MCV 89.0 MCH 29.7 MCHC 33.4 RDW Std Deviation 39.6 RDW Coeff of [place] 12.1 Plt Count 287 MPV 9.1 Immature Gran % (Auto) 0.200 Neut % (Auto) 48.5 Lymph % (Auto) 44.3 H [place] % (Auto) 5.0 Eos % (Auto) 1.5 Baso % (Auto) 0.5 Absolute Neuts (auto) 2.9 Absolute Lymphs (auto) 2.68 Nucleated RBC % 0 Sodium 141 Potassium 4.1 Chloride 106 Carbon Dioxide 29.0 Anion Gap 6 BUN 15 Creatinine 0.58 Estim Creat Clear Calc 117.32 Est GFR (MDRD) Af Amer 157 Est GFR (MDRD) Non-Af 129 BUN/Creatinine Ratio 25.8 H Glucose 104 Calcium 9.2 Magnesium Serum , Qual NEGATIVE Urine Color Urine Clarity Urine pH Ur Specific [place] Urine Protein Urine Glucose (UA) Urine Ketones Urine Occult Blood Urine Nitrite Urine Bilirubin Urine Urobilinogen Ur Leukocyte Esterase Urine RBC Urine WBC Ur Squamous Epith Cells Urine Bacteria Urine Mucus 12/28/22 12/28/22 23:57 23:57 WBC RBC Hgb Hct MCV MCH MCHC RDW Std Deviation RDW Coeff of [place] Plt Count MPV Immature Gran % (Auto) Neut % (Auto) Lymph % (Auto) [place] % (Auto) Eos % (Auto) Baso % (Auto) Absolute Neuts (auto) Absolute Lymphs (auto) Nucleated RBC % Sodium Potassium Chloride Carbon Dioxide Anion Gap BUN Creatinine Estim Creat Clear Calc Est GFR (MDRD) Af Amer Est GFR (MDRD) Non-Af BUN/Creatinine Ratio Glucose Calcium Magnesium 1.9 Serum , Qual Urine Color Yellow Urine Clarity Clear Urine pH 6.0 Ur Specific [place] 1.015 Urine Protein Negative Urine Glucose (UA) Normal Urine Ketones 15 H Urine Occult Blood 250 H Urine Nitrite Negative Urine Bilirubin Negative Urine Urobilinogen Normal Ur Leukocyte Esterase Negative Urine RBC 0-5 SEEN Urine WBC 0 SEEN Ur Squamous Epith Cells 0 SEEN Urine Bacteria RARE Urine Mucus 0 SEEN Radiography Diagnostic Testing: Clinical Impression(s) from Imaging Studies Abdomen/Pelvis CT 12/29/22 00:24 IMPRESSION: Constipation. Abundant stool within the sigmoid and rectum could consider fecal impaction. No appendicitis. No hydronephrosis. Electronically Signed: Evelyn Polo MD at 1:19 EST Reading Location ID and State: [facility] / [place] Tel , Service support , Discharge Plan Triage Chief Complaint: Abd Pain ED Provider: Jarret Davis Dx/Rx/DC Orders Clinical Impression: Abdominal pain, Constipation Instructions: Abdominal Pain Prescriptions: No Action NK Primary Care Provider: Tristin Verdugo Referrals: Tristin Verdugo DO [Primary Care Provider] - Activity Restrictions/Additional Instructions: Please also follow-up with your SENIOR JAVA DEVELOPER for repeat evaluation to ensure there is not a SPRING REPAIRER HELPER HAND component as a cause of your persistent pain and return to the ER should you have further concerns Disposition Disposition: Home, Self Care Discharge Date/Time: 12/29/22 02:22
== END 2022-12-29 02:22 | disposition home or self-care (01) ==
PROVIDERS: Emergency Provider Emergency Medicine; PCP Student in an Organized Health Care Education/Training Program; Visit Provider Emergency Medicine
DX: R10.9 Unspecified abdominal pain (principal); K59.00 Constipation, unspecified
CPT/HCPCS: 74177; 80048; 81001; 83735; 84703; 85025; 96360; 99282; J7030; Q9967; A4216

== ENCOUNTER 2023-02-23 22:29 | Emergency (ER) | payer OTHER, SELFPAY ==
[2023-02-23 22:29] VITALS: BP 133/95; PULSE 128; RESP 18; TEMP 36.9; O2SAT 98; BMI 21.9
--- NOTE | 2023-02-24 00:05 | CT_ITS ---
EXAM: CT ABDOMEN AND PELVIS WITH INTRAVENOUS CONTRAST CLINICAL INDICATION: blunt pelvic injury, tachycardia blunt pelvic injury, tachycardia. Patient fell on a baby gate and has lower pelvic pain. TECHNIQUE: Helically acquired images were obtained of the abdomen and pelvis with intravenous contrast. This CT exam was performed using one or more of the following dose reduction techniques: automated exposure control, adjustment of the mA and/or kV according to patient size, and/or use of iterative reconstruction technique. This report was created using [employer] report generation technology. CONTRAST: IV 100mL [id number]-370 RADIATION DOSE: CTDIvol = 7.37 mGy, DLP = 427.27 mGy-cm COMPARISON: CT scan abdomen and pelvis 12/29/2022. FINDINGS: LOWER THORAX: Unremarkable. Lung bases are clear. No cardiomegaly. No significant pericardial effusion. ABDOMEN: LIVER: Unremarkable. Homogeneous. No focal mass. GALLBLADDER AND BILE DUCTS: Unremarkable. No calcified gallstones. No gallbladder distention or wall edema. No intra- or extrahepatic biliary ductal dilation. PANCREAS: Unremarkable. No focal cystic or solid mass. SPLEEN: Unremarkable. Normal size without focal cystic or solid mass. ADRENALS: Unremarkable. No nodules. KIDNEYS AND URETERS: Unremarkable. Normal renal size and position. No hydronephrosis. STOMACH AND BOWEL: Unremarkable. No stomach or bowel distention. No focal inflammatory change. PELVIS: APPENDIX: A normal appendix is seen on axial images 80-91. BLADDER: Unremarkable. REPRODUCTIVE: Unremarkable as visualized. No mass. ABDOMEN and PELVIS: INTRAPERITONEAL SPACE: Unremarkable. No ascites or other fluid collection. No free air. BONES/JOINTS: Unremarkable. No suspicious lytic or blastic abnormality. SOFT TISSUES: Unremarkable. No discrete abdominal or pelvic wall hernia. VASCULATURE: Unremarkable. Abdominal aorta is non-dilated. LYMPH NODES: Unremarkable. No enlarged lymph nodes. CT/Abdomen/Pelvis W IV Cont ONLY IMPRESSION: No acute findings in the abdomen or pelvis. Electronically Signed: Rj Tarango MD at 2:31 EDT Reading Location ID and State: [facility] / [place] , Service support ,
--- NOTE | 2023-02-24 00:06 | EDS_ITS ---
HPI History of Present Illness Chief Complaint: Abd Pain Informant: patient Onset/Context/Timing Onset: Today Narrative Narrative: Patient presents after blunt pelvic injury. She states she was coming down some steps and went to step over the baby gate. She was unable to reach the step on the other side and had a straddle injury over the baby gate. Injury occurred approximate 6 hours ago. 2 hours later she started having lower abdominal pain with a lot of vomiting and frequent urination. She denies any blood in the stool or with the urine. She states given the lower abdominal pain she was having difficulty standing upright. She was noted to be tachycardic on arrival. [facility] Medical History (Updated 02/24/23 @ 03:[address] Yue Allred MD) Gestational diabetes Right ankle sprain Right foot sprain Vaginal delivery Home Medications NK 12/27/22 [History Last Taken Unknown] Allergy/AdvReac Type Severity Reaction Status Date / Time No Known Allergies Allergy Verified 02/23/23 22:31 Family History Other Anemia Heart disease Hypertension Suicide attempt Social History Smoking Status: Never smoker alcohol intake: never substance use type: does not use additional social history: DOES NOT USE ASPIRIN DOES USE IBUPROFEN ROS ROS ED Constitutional Constitutional ED: Denies chills or fever(s) Eyes Eyes: Denies change in vision or discharge from eye(s) ENT ENT ED: Denies discharge from eye(s), rhinorrhea or sore throat Cardiovascular Cardiovascular: Denies chest pain or palpitations Respiratory/Chest Respiratory/Chest: Denies cough or dyspnea Gastrointestinal Gastrointestinal: Reports abdominal pain, diarrhea and nausea; Denies vomiting Genitourinary Genitourinary ED: Reports urinary frequency; Denies difficulty urinating or dysuria Musculoskeletal Musculoskeletal: Denies back pain or extremity pain Integumentary Denies Abrasions or rash Neurologic Neurologic: Denies headache(s) or weakness Psychiatric Psychiatric: Denies anxiety or depression Allergic/Immunologic Allergic/Immunologic ED: Denies lip swelling or urticaria EXAM Physical Exam Const Vital Signs: 02/23/23 22:29 02/24/23 00:49 02/24/23 03:12 Temperature 98.4 F Temperature Source Temporal Pulse Rate 128 H 72 Respiratory Rate 18 18 Blood Pressure 133/95 H 123/68 H Blood Pressure Mean 107 Pulse Ox 98 99 100 Oxygen Delivery Method Room Air Room Air Positive well nourished and well developed General Appearance ED: well developed HEENT Reports normocephalic and head/scalp atraumatic Eyes PERRL and EOMs intact bilaterally Neck supple Chest Wall inspection of chest normal and palpation of chest normal Resp normal respiratory effort and clear to auscultation bilaterally Cardio regular rate and regular rhythm GI GI Narrative: Abdomen soft with mild suprapubic tenderness. No guarding or rebound. No vulvar lesions noted. No hematomas or lacerations. Palpation: soft Extremity normal to inspection Neuro oriented x3 and no sensory deficits noted Sensorium / Orientation: alert Motor Exam: strength 5/5 throughout Psych mental status grossly normal Skin no rashes or lesions noted MDM MDM MDM Narrative Medical decision making narrative: Patient is given IV fluids. Labwork obtained to evaluate for leukocytosis, anemia, and electrolyte derangement. CT scan of the abdomen pelvis obtained to ensure no internal injury given her degree of pain and tachycardia. Lab Data Attestation: I reviewed the patient's lab results. Labs: Laboratory Results - last 24 hr 02/24/23 02/24/23 02/24/23 00:50 00:50 00:50 WBC 8.8 RBC 4.57 Hgb 13.8 Hct 40.6 MCV 88.8 MCH 30.2 MCHC 34.0 RDW Std Deviation 38.6 RDW Coeff of [place] 11.9 Plt Count 262 MPV 9.7 Immature Gran % (Auto) 0.200 Neut % (Auto) 81.7 H Lymph % (Auto) 13.3 L [place] % (Auto) 4.1 Eos % (Auto) 0.1 Baso % (Auto) 0.6 Absolute Neuts (auto) 7.2 Absolute Lymphs (auto) 1.17 Nucleated RBC % 0 Sodium 138 Potassium 3.7 Chloride 109 H Carbon Dioxide 26.0 Anion Gap 3 L BUN 13 Creatinine 0.50 L Estim Creat Clear Calc 136.09 Est GFR (MDRD) Af Amer 188 Est GFR (MDRD) Non-Af 155 BUN/Creatinine Ratio 26.3 H Glucose 106 Calcium 8.7 Serum , Qual NEGATIVE Urine Color Urine Clarity Urine pH Ur Specific [place] Urine Protein Urine Glucose (UA) Urine Ketones Urine Occult Blood Urine Nitrite Urine Bilirubin Urine Urobilinogen Ur Leukocyte Esterase Urine RBC Urine WBC Ur Squamous Epith Cells Urine Bacteria Urine Mucus 02/24/23 00:50 WBC RBC Hgb Hct MCV MCH MCHC RDW Std Deviation RDW Coeff of [place] Plt Count MPV Immature Gran % (Auto) Neut % (Auto) Lymph % (Auto) [place] % (Auto) Eos % (Auto) Baso % (Auto) Absolute Neuts (auto) Absolute Lymphs (auto) Nucleated RBC % Sodium Potassium Chloride Carbon Dioxide Anion Gap BUN Creatinine Estim Creat Clear Calc Est GFR (MDRD) Af Amer Est GFR (MDRD) Non-Af BUN/Creatinine Ratio Glucose Calcium Serum , Qual Urine Color Straw Urine Clarity Clear Urine pH 7.0 Ur Specific [place] 1.015 Urine Protein Negative Urine Glucose (UA) Normal Urine Ketones Negative Urine Occult Blood Negative Urine Nitrite Negative Urine Bilirubin Negative Urine Urobilinogen Normal Ur Leukocyte Esterase Negative Urine RBC 0 SEEN Urine WBC 0 SEEN Ur Squamous Epith Cells 0-5 SEEN Urine Bacteria RARE Urine Mucus 0 SEEN Radiography Diagnostic Testing: Clinical Impression(s) from Imaging Studies Abdomen/Pelvis CT 02/24/23 00:05 IMPRESSION: No acute findings in the abdomen or pelvis. Electronically Signed: Rj Tarango MD at 2:31 EDT Reading Location ID and State: [facility] / [place] , Service support , Treatment and Re-Evaluation :: CBC reveals normal white count and normal hemoglobin. Chemistry studies unremarkable. test negative. Urinalysis reveals no hematuria or sign of infection. CT scan of the abdomen pelvis reveals no acute abnormalities. Differential diagnosis included pelvic hematoma given her degree of pain and tachycardia. This was not found on testing. Patient's heart rate is currently improved into the 70s. Patient is reassured with these findings and will continue supportive care at home. Discharge Plan Triage Chief Complaint: Abd Pain ED Provider: Yue Allred Dx/Rx/DC Orders Clinical Impression: Pelvic pain, Pelvic straddle injury Instructions: ED Pelvic Pain, Unknown Cause Prescriptions: No Action NK Primary Care Provider: Tristin Verdugo Referrals: Tristin Verdugo, DO [Primary Care Provider] - 1 Week if not improving Disposition Disposition: Home, Self Care Discharge Date/Time: 02/24/23 03:13
[2023-02-24 00:49] VITALS: O2SAT 99
[2023-02-24] MEDS: 0.9% Normal Saline 1,000 ML 150 ML IV (00:49)
[2023-02-24 00:58] LABS: Mucous, Urine 0 SEEN /hpf (<or=2+); Red Blood Cells-Urine 0 SEEN /hpf (0-5); White Blood Cells 0 SEEN /hpf (0-5)
[2023-02-24 01:00] LABS: Glucose, Dipstick Normal (Normal); Ketone-Dipstick Negative (Negative); Leukocyte Esterase-Dipstick Negative /ul (Negative); Nitrite-Dipstick Negative (Negative); Occult Blood-Urine Negative /ul (Negative); Protein-Dipstick Negative (Negative); Specific Gravity, Urine 1.015 (1.002-1.030); Urine Bilirubin Dipstick Negative (Negative); Urine Urobilinogen Normal (Normal)
[2023-02-24 01:01] LABS: Absolute Lymphocyte Count 1.17 X10^3/uL (0.83-4.51); Absolute Neutrophil Count 7.2 X10^3/uL (2.0-7.7); Basophil# 0.05 X10^3/uL; Basophil% 0.6 % (0-1); Color, Urine Straw (Yellow); Eosinophil# 0.01 X10^3/uL; Eosinophils% 0.1 % (0-5); Hematocrit 40.6 % (37-47); Hemoglobin 13.8 g/dL (12.0-15.0); Lymphocyte # 1.17 X10^3/ul (0.83-4.51); Lymphocyte % 13.3 % (19-41); Mean Corpuscular Hgb 30.2 pg (27.0-32.0); Mean Corpuscular Volume 88.8 fL (81-99); Mean Platelet Vol. 9.7 fl (6.2-12.0); Monocyte# 0.36 X10^3/uL; Monocyte% 4.1 % (0-10); NRBC Flagged by Analyzer 0 % (0-5); Neutrophil # 7.16 X10^3/uL (2.7-7.7); Neutrophil % 81.7 % (47-70); Platelet Count 262 K/mm3 (150-450); RBC Distribution Width CV 11.9 % (11.6-14.6); RBC Distribution Width SD 38.6 fl (35.1-43.9); Red Blood Count 4.57 M/mm3 (4.2-5.4); Urine Clarity Clear (Clear); White Blood Count 8.8 K/mm3 (4.4-11.0)
[2023-02-24 01:19] LABS: Internal QC Validated? YES +Cl - CLEAR BKGD; Pregnancy, Serum, hCG Quali. NEGATIVE Negative
[2023-02-24 01:22] LABS: Anion Gap 3 (5-15); BUN 13 mg/dL (7-18); BUN/Creat Ratio 26.3 RATIO (10-20); Calcium,Total 8.7 mg/dL (8.5-10.1); Chloride 109 mmol/L (98-107); EST Glomerular Filtration Rate 155 mL/min (>60); Est Glom Filt Rate - Afr Amer 188 mL/min (>60); Estimated Creatinine Clearance 136.09 ml/min; Glucose 106 mg/dL (74-106); Potassium 3.7 mmol/L (3.5-5.1); Sodium Level 138 mmol/L (136-145)
[2023-02-24 01:43] LABS: Bacteria RARE /hpf (None Seen); Squamous Epithelial Cells - UA 0-5 SEEN /hpf (5-10)
[2023-02-24 03:12] VITALS: BP 123/68; PULSE 72; RESP 18; O2SAT 100
== END 2023-02-24 03:13 | disposition home or self-care (01) ==
PROVIDERS: Emergency Provider Emergency Medicine; PCP Student in an Organized Health Care Education/Training Program; Visit Provider Emergency Medicine
DX: S39.93XA Unspecified injury of pelvis, initial encounter (principal); R10.2 Pelvic and perineal pain; X58.XXXA Exposure to other specified factors, initial encounter
CPT/HCPCS: 74177; 80048; 81001; 84703; 85025; 96360; 96361; 99283; J7030; Q9967; A4216

== ENCOUNTER 2023-03-09 04:08 | Emergency (ER) | payer OTHER, SELFPAY ==
[2023-03-09 04:11] VITALS: BP 160/88; PULSE 82; RESP 15; TEMP 36.8; O2SAT 98; BMI 24.0
--- NOTE | 2023-03-09 04:26 | EDS_ITS ---
HPI History of Present Illness Chief Complaint: Abd Pain Informant: patient Narrative Narrative: Presenting here with multiple complaints. Patient reports started 2 weeks ago sore throat, past week noted some burning and tingling with urination. She has been having jaw swelling last 2 weeks has been consistently using ibuprofen 600 mg every 6 hours. Started getting stomach upset with nausea. Vomiting clear. Bowel movements nonbloody no tarry stools. Finished her menstrual period yesterday. States noted some bleeding spots on the anterior aspect of her pad. No fevers chills or sweats. No abdominal surgeries. She went to urgent care yesterday there is no testing she started on a Z-Bradly and Pepcid. She was told to stop ibuprofen and for which she has not taken for 2 days. She states her sore throat is starting to improve. Prior similar symptoms: No PFSH PFSH Medical History (Updated 03/09/23 @ 04:[address] Иван Smith DO) Gestational diabetes Right ankle sprain Right foot sprain Vaginal delivery Home Medications azithromycin 250 mg tablet See Rx Instructions PO .COMPLEX Acute pharyngitis #6 tabs 03/08/23 [Rx Last Taken Unknown] famotidine 20 mg tablet (Pepcid) 20 mg PO BID acute gastritis #20 tabs 03/08/23 [Rx Last Taken Unknown] ondansetron 4 mg disintegrating tablet 4 mg PO Q8H PRN PRN Nausea #10 tabs 03/09/23 [Rx Last Taken Unknown] Allergy/AdvReac Type Severity Reaction Status Date / Time No Known Allergies Allergy Verified 03/08/23 08:38 Family History Other Anemia Heart disease Hypertension Suicide attempt Social History Smoking Status: Never smoker alcohol intake: never substance use type: does not use additional social history: DOES NOT USE ASPIRIN DOES USE IBUPROFEN ROS ROS ED Constitutional Constitutional ED: Denies chills, fever(s) or sweats Eyes Eyes: Denies change in vision ENT ENT ED: Reports sore throat; Denies dysphagia Cardiovascular Cardiovascular: Denies chest pain, leg edema, palpitations or racing heartbeat Respiratory/Chest Respiratory/Chest: Denies cough, dyspnea or dyspnea on exertion Gastrointestinal Gastrointestinal: Reports abdominal pain; Denies diarrhea, nausea or vomiting Genitourinary Genitourinary ED: Reports dysuria; Denies hematuria or urinary frequency Musculoskeletal Musculoskeletal: Denies back pain, extremity pain or neck pain Integumentary Denies rash or wounds Neurologic Neurologic: Denies headache(s), paresthesias or weakness EXAM Physical Exam Const Vital Signs: 03/09/23 04:11 Temperature 98.3 F Temperature Source Temporal Pulse Rate 82 Respiratory Rate 15 Blood Pressure 160/88 H Blood Pressure Mean 112 Pulse Ox 98 Oxygen Delivery Method Room Air Positive well nourished and well developed General Appearance ED: well developed and NAD HEENT Reports moist mucous membranes HEENT Narrative: No posterior pharyngeal erythema no exudates, airway patent. No stridor. No trismus. normocephalic and atraumatic Eyes PERRL, EOMs intact bilaterally and conjunctivae normal General Eye ED: Yes normal appearance of both eyes Neck no lymphadenopathy and supple General: Negative for tenderness Chest Wall inspection of chest normal and palpation of chest normal Chest: Negative for tenderness Resp normal respiratory effort and normal air movement Effort and Inspection: symmetric chest movement; Negative for respiratory distress Cardio regular rate, regular rhythm and no murmurs Peripheral Pulses: pulses 2+ throughout GI normal to inspection, nondistended, normoactive bowel sounds and non-tender GI Narrative: Negative Parekh's or McBurney's tenderness. Palpation: Negative for guarding or rebound tenderness present Back/Spine no CVA tenderness and no thoracic nor lumbar tenderness Extremity normal to inspection General Extremety ED: Negative for edema or tenderness General Extremity: Negative for edema Neuro oriented x3 and no sensory deficits noted Sensorium / Orientation: awake and alert Skin no rashes or lesions noted and no wounds MDM MDM MDM Narrative Medical decision making narrative: Interventions / MDM: Differential diagnosis: Pharyngitis, gastritis, UTI Diagnosis considered but do not suspect: N/A My EKG interpretation: N/A Imaging independently reviewed and interpreted by myself: N/A External documents reviewed: N/A Test considered but not ordered:N/A ED course: Patient will complaints, pharyngitis reporting starting to improve with her started on antibiotics. There is no posterior pharyngeal erythema or exudate. She has a nonsurgical abdomen, with history of ibuprofen use likely gastritis in nature. No clinical ulcer reported. Denies bloody stools. She reports dysuria, will check a UA and Zithromax would not be optimal coverage for UTIs with symptoms. Re-evaluation: stable, urine and hCG negative. She is sure her. Discussed if she had any abnormal vaginal discharge she declines. She states she had a pelvic exam performed from her [facility] 2 weeks ago from a straddle injury which noticed swelling at that time and no ecchymosis. I discussed with her may use Tylenol as needed as it will not cause gastritis symptoms. She will finish her antibiotics as it was started in her clinical pharyngitis symptoms are starting to improve. She will follow-up with her doctors as scheduled. Discussed if she notices abnormal vaginal discharge may consider pelvic exam again as an outpatient. All questions were answered. Prescription of Zofran was sent to her pharmacy to use as needed. Disposition discussed with patient/family/significant other: Patient Case discussed with consulting clinician: N/A Lab Data Attestation: I reviewed the patient's lab results. Labs: Laboratory Results - last 24 hr 03/09/23 04:31 Urine Color Yellow Urine Clarity Clear Urine pH 6.5 Ur Specific [place] 1.010 Urine Protein Negative Urine Glucose (UA) Normal Urine Ketones Negative Urine Occult Blood 25 H Urine Nitrite Negative Urine Bilirubin Negative Urine Urobilinogen Normal Ur Leukocyte Esterase Negative Urine RBC 0-5 SEEN Urine WBC 0 SEEN Ur Squamous Epith Cells 0-5 SEEN Urine Bacteria 0 SEEN Urine Mucus 0 SEEN Urine Test Negative Discharge Plan Triage Chief Complaint: Abd Pain ED Provider: Иван Smith Dx/Rx/DC Orders Clinical Impression: Gastritis, Dysuria Instructions: Dysuria, ED Gastritis (Adult) Prescriptions: New ondansetron [ondansetron] 4 mg tablet,disintegrating 4 mg PO Q8H PRN PRN (Reason: Nausea) Qty: 10 0RF No Action azithromycin 250 mg tablet See Rx Instructions PO .COMPLEX Qty: 6 0RF Rx Instructions: For 250 mg dose pack: take 500 mg today (day 1), then 250 mg for 4 days (days 2-5) PO famotidine [Pepcid] 20 mg tablet 20 mg PO BID Qty: 20 0RF Primary Care Provider: Tristin Verdugo Referrals: Tristin Verdugo, [Primary Care Provider] - Keep Lay appointment Activity Restrictions/Additional Instructions: Urine negative today. Finish her Z-Bradly as her throat symptoms are improving. Continue to avoid ibuprofen. Take your Pepcid for gastritis symptoms, use Zofran as needed continue oral fluids for hydration. For your dysuria monitoring for any discharge, can reconsider potential need for pelvic exam again with your doctors. Disposition Disposition: Home, Self Care
[2023-03-09 04:35] LABS: Bacteria 0 SEEN /hpf (None Seen); Mucous, Urine 0 SEEN /hpf (<or=2+); White Blood Cells 0 SEEN /hpf (0-5)
[2023-03-09 04:38] LABS: Color, Urine Yellow (Yellow); Glucose, Dipstick Normal (Normal); Ketone-Dipstick Negative (Negative); Leukocyte Esterase-Dipstick Negative /ul (Negative); Nitrite-Dipstick Negative (Negative); Occult Blood-Urine 25 /ul (Negative); Protein-Dipstick Negative (Negative); Urine Bilirubin Dipstick Negative (Negative); Urine Clarity Clear (Clear); Urine Urobilinogen Normal (Normal); Urine pH 6.5 (5.0 - 8.0)
[2023-03-09 04:41] LABS: Internal QC Validated? YES +Cl - CLEAR BKGD; Pregnancy, Urine Negative Negative
[2023-03-09 04:44] LABS: Red Blood Cells-Urine 0-5 SEEN /hpf (0-5); Squamous Epithelial Cells - UA 0-5 SEEN /hpf (5-10)
== END 2023-03-09 04:56 | disposition home or self-care (01) ==
PROVIDERS: Emergency Provider Emergency Medicine; PCP Student in an Organized Health Care Education/Training Program; Visit Provider Emergency Medicine
DX: K29.70 Gastritis, unspecified, without bleeding (principal); R30.0 Dysuria
CPT/HCPCS: 81001; 81025; 99281; 99282

== ENCOUNTER → 2023-03-09 | Outpatient (CLI) | payer OTHER, SELFPAY | END | disposition home or self-care (01) | PROVIDERS: PCP Student in an Organized Health Care Education/Training Program; Visit Provider Otolaryngology | DX: J35.01 Chronic tonsillitis (principal) | CPT/HCPCS: 87070 ==

== ENCOUNTER 2023-03-20 02:02 | Emergency (ER) | payer MEDICAID, SELFPAY ==
[2023-03-20 02:06] VITALS: BP 138/107; PULSE 99; RESP 13; TEMP 36.8; O2SAT 99; BMI 23.8
[2023-03-20 03:12] LABS: AST(SGOT) 15 U/L (15-37); Alanine Aminotransfer ALT/SGPT 22 U/L (13-56); Albumin, Serum 3.8 g/dL (3.2-5.0); Alkaline Phosphatase 54 U/L (45-117); Bilirubin, Direct 0.35 mg/dL (0.00-0.30); Globulin 3.3 g/dL (2.2-4.2); Protein, Total 7.1 g/dL (6.4-8.2)
--- NOTE | 2023-03-20 03:29 | EDS_ITS ---
HPI History of Present Illness Chief Complaint: Allergic Reaction Narrative Narrative: Patient is a 32-year-old female with no significant past medical history. She states that this evening she was engaged in sexual intercourse and was performing oral sex with a condom in place. She states that after doing this she felt as if her throat was irritated and was beginning to close making her feel short of breath. She states that this occurred roughly 1 hour ago. She reports she was concerned that her airway could close and secondary to this presents to the hospital for evaluation. Other than that recent ACT patient denies any new exposures and she denies any rash or previous history of anaphylaxis. Of note the patient also reports that she feels like she is developing yellow eyes and skin but states she does not have a history of hepatitis or alcohol abuse and she denies any new medications which could have caused changes [facility] Medical History (Updated 03/20/23 @ 03:[address] Jarret Davis DO) Gestational diabetes Right ankle sprain Right foot sprain Vaginal delivery Home Medications azithromycin 250 mg tablet See Rx Instructions PO .COMPLEX Acute pharyngitis #6 tabs 03/08/23 [Rx Last Taken Unknown] famotidine 20 mg tablet (Pepcid) 20 mg PO BID acute gastritis #20 tabs 03/08/23 [Rx Last Taken Unknown] ondansetron 4 mg disintegrating tablet 4 mg PO Q8H PRN PRN Nausea #10 tabs 03/09/23 [Rx Last Taken Unknown] Allergy/AdvReac Type Severity Reaction Status Date / Time No Known Allergies Allergy Verified 03/20/23 02:09 Family History Other Anemia Heart disease Hypertension Suicide attempt Social History Smoking Status: Never smoker alcohol intake: never substance use type: does not use additional social history: DOES NOT USE ASPIRIN DOES USE IBUPROFEN ROS ROS ED Constitutional Constitutional ED: Reports chills; Denies fever(s) ENT ENT ED: Reports sore throat Cardiovascular Cardiovascular: Denies chest pain Respiratory/Chest Respiratory/Chest: Reports dyspnea; Denies cough Gastrointestinal Gastrointestinal: Denies abdominal pain, diarrhea, nausea or vomiting Genitourinary Genitourinary ED: Denies dysuria or hematuria Musculoskeletal Musculoskeletal: Denies myalgias Integumentary Denies rash Neurologic Neurologic: Denies headache(s) Psychiatric Psychiatric: Reports anxiety Hematologic/Lymphatic Hematologic/Lymphatic: Denies easy bleeding or easy bruising EXAM Physical Exam Const Vital Signs: 03/20/23 02:06 03/20/23 03:42 Temperature 98.2 F Temperature Source Temporal Pulse Rate 99 85 Respiratory Rate 13 19 H Blood Pressure 138/107 H 123/84 H Blood Pressure Mean 117 Pulse Ox 99 97 Oxygen Delivery Method Room Air Positive well nourished and well developed General Appearance ED: well developed HEENT Reports moist mucous membranes HEENT Narrative: No tongue or lip swelling no oral lesions no airway edema or compromise Eyes PERRL and EOMs intact bilaterally General Eye ED: Negative for scleral icterus Neck supple Neck Narrative: No nuchal rigidity or meningeal signs noted Resp normal respiratory effort and clear to auscultation bilaterally Resp Narrative: No nasal flaring retractions tachypnea or accessory muscle use Cardio regular rate and regular rhythm Rate: other Other Details: Radial pulses are plus 2 out of 4 bilaterally are equal and symmetric GI non-distended GI Narrative: Abdomen is soft and nondistended with mild diffuse pain on palpation without voluntary guarding or rigidity. Auscultation: normoactive bowel sounds Palpation: soft Extremity normal to inspection Extremity Narrative: No asymmetric edema no pitting edema negative Homans' sign bilaterally Neuro oriented x3 and CN's II-XII intact bilaterally Sensorium / Orientation: alert Psych Psych Narrative: Patient has a nervous/anxious affect Skin no rashes or lesions noted Skin Narrative: No obvious jaundice noted MDM MDM MDM Narrative Medical decision making narrative: Patient presented to the ER with stable vitals and no signs of respiratory dis tress and states has been approximately 1 hour since her exposure. Therefore my concern for anaphylaxis is low. Patient states she feels like she has yellow eyes and yellow skin I do not appreciate obvious jaundice or scleral icterus on exam either. Also she has abdominal pain but it is mild in nature and it is diffuse and not localized in the right upper quadrant going against liver or gallbladder dysfunction. Patient had labs done a few weeks ago which showed normal H&H kidney function and electrolytes and her urine sample did not show any bilirubin. However as she is concerned for jaundice I did elect to check hepatic function panel. Her total and direct bilirubin are slightly elevated. Secondary to her complaint of scleral icterus and jaundice with mild elevation to those values she will be given an outpatient ultrasound study to further assess her liver and gallbladder. At this time I do not feel it needs to be done emergently in the ER as patient's had the symptoms previously. The plan of care was discussed with the patient she is agreeable to it and has an appointment with her family doctor later today. As she has no signs of respiratory distress upon initial evaluation and on reevaluation over 1 hour later I do not feel there is need to provide epinephrine Solu-Medrol Benadryl or Pepcid History & Record Review Discussion w/independent historian: Patient Lab Data Attestation: I reviewed the patient's lab results. Labs: Laboratory Results - last 24 hr 03/20/23 02:50 Total Bilirubin 2.00 H Direct Bilirubin 0.35 H AST 15 ALT 22 Alkaline Phosphatase 54 Total Protein 7.1 Albumin 3.8 Globulin 3.3 Discharge Plan Triage Chief Complaint: Allergic Reaction ED Provider: Jarret Davis Dx/Rx/DC Orders Clinical Impression: Serum total bilirubin elevated, Allergic reaction Instructions: Direct Bilirubin, Allergy Overview Prescriptions: No Action azithromycin 250 mg tablet See Rx Instructions PO .COMPLEX Qty: 6 0RF Rx Instructions: For 250 mg dose pack: take 500 mg today (day 1), then 250 mg for 4 days (days 2-5) PO famotidine [Pepcid] 20 mg tablet 20 mg PO BID Qty: 20 0RF ondansetron [ondansetron] 4 mg tablet,disintegrating 4 mg PO Q8H PRN PRN (Reason: Nausea) Qty: 10 0RF Other Ambulatory Orders: Gallbladder (Routine) Facility: [facility] - Location: [facility] Ordered By: Dr. Jarret Davis Primary Care Provider: Tristin Verdugo Referrals: Tristin Verdugo DO [Primary Care Provider] - Activity Restrictions/Additional Instructions: Your laboratory studies today did show an elevated bilirubin and direct bilirubin. Secondary to these values being elevated please follow-up with your family doctor to have further testing obtained as well as have your outpatient ultrasound obtained to look at your liver and gallbladder and assess these as possible causes for the elevated value Disposition Disposition: Home, Self Care Discharge Date/Time: 03/20/23 03:42
[2023-03-20 03:42] VITALS: BP 123/84; PULSE 85; RESP 19; O2SAT 97
== END 2023-03-20 03:42 | disposition home or self-care (01) ==
PROVIDERS: Emergency Provider Emergency Medicine; PCP Student in an Organized Health Care Education/Training Program; Visit Provider Emergency Medicine
DX: T78.40XA Allergy, unspecified, initial encounter (principal); R17 Unspecified jaundice; X58.XXXA Exposure to other specified factors, initial encounter
CPT/HCPCS: 80076; 99284; A4216

== ENCOUNTER 2023-03-21 11:24 | Emergency (ER) | payer MEDICAID, SELFPAY ==
[2023-03-21 11:25] VITALS: BP 142/93; PULSE 106; RESP 16; TEMP 36.6; O2SAT 98; BMI 22.6
--- NOTE | 2023-03-21 11:54 | EDS_ITS ---
HPI <HEAVEN Mejia - Last Filed: 03/21/23 12:39> History of Present Illness Chief Complaint: Abd Pain Narrative Narrative: Patient is a 32-year-old female with no significant medical history, patient is currently getting worked up for multiple issues, patient states he has been having on and off belly pain, decreased appetite, decreased energy over the last 2 to 3 months. Patient's been seen by multiple physicians such as here in the emergency department as well as her PCP. She is getting multiple laboratory studies done, she is currently waiting to get a ultrasound of her gallbladder and liver. She was seen last evening for concern of an anaphylactic reaction, allergic reaction after giving oral sex with a condom. She was seen by ER physician here, there is no sign or symptom of anaphylaxis, patient was discharged after 1 hour of being in the emergency department. Patient did have some laboratory studies done, slight elevation in bilirubin, she was also concerned that she might looked jaundiced however according to the ER physician she did not. Patient states she is dealing with a lot of stress because she does not feel herself, she does have 2 kids and is . She is here today because she is more concerned about her lower abdomen, she is concerned that she might have an ectopic . She states he recently had some blood work done, and her TSH was on the low part of normal and she was concerned that that was a sign. PFSH <HEAVEN Mejia - Last Filed: 03/21/23 12:39> [facility] Medical History (Updated 03/21/23 @ 12:38 by HEAVEN Mejia) Gestational diabetes Right ankle sprain Right foot sprain Vaginal delivery Home Medications azithromycin 250 mg tablet See Rx Instructions PO .COMPLEX Acute pharyngitis #6 tabs 03/08/23 [Rx Last Taken Unknown] famotidine 20 mg tablet (Pepcid) 20 mg PO BID acute gastritis #20 tabs 03/08/23 [Rx Last Taken Unknown] ondansetron 4 mg disintegrating tablet 4 mg PO Q8H PRN PRN Nausea #10 tabs 03/09/23 [Rx Last Taken Unknown] Allergy/AdvReac Type Severity Reaction Status Date / Time No Known Allergies Allergy Verified 03/21/23 11:28 Family History Other Anemia Heart disease Hypertension Suicide attempt Social History Smoking Status: Never smoker alcohol intake: never substance use type: does not use additional social history: DOES NOT USE ASPIRIN DOES USE IBUPROFEN ROS <HEAVEN Mejia - Last Filed: 03/21/23 12:39> ROS ED ROS Narrative Constitutional: Negative for fever, chills, weight loss, weakness Eyes: Negative for vision loss, vision change, double vision ENT: Negative for any sore throat, ear pain, congestion Cardiovascular: Negative for any chest pain, tightness, palpitations Respiratory: Negative for any cough, sputum production, hemoptysis, dyspnea, dyspnea on exertion, orthopnea Gastrointestinal: Negative for any vomiting, diarrhea, constipation, blood in stool, blood in vomit. Positive for generalized abdominal pain, over the last 24 hours the pain has been in her lower abdomen positive for nausea : Negative for any urinary frequency, dysuria, retention, blood in urine Muscle skeletal: Negative for any muscle joint pain, stiffness, myalgias, arthralgias, neck pain, back pain Neurological: Negative for any headache, syncope, numbness or tingling, dizziness Skin: Negative for any rashes, lumps, itching, abrasions, lacerations Psychiatric: Negative for any depression, anxiety, stress, suicidal ideation, homicidal ideation Hematologic: Negative for any easy bruising, excessive bruising, easy bleeding Allergies: Negative for any eczema, hives, rash EXAM <HEAVEN Mejia - Last Filed: 03/21/23 12:39> Physical Exam Narrative Exam Narrative: Vital signs reviewed. Patient appears to be in no distress. Patient looks well-appearing. After talking with the patient at length, I do believe the patient is suffering from anxiety, depression. HEET: Head normocephalic atraumatic, TMs clear bilaterally. Posterior pharynx is clear, moist mucous membranes. Nares clear bilaterally. Neck: Supple with no lymphadenopathy or tenderness. No signs of meningismus, negative jolt sign. Cardiac: Regular rate and rhythm no murmurs gallops or rubs, equal peripheral pulses bilaterally. Respiratory: Lungs clear to auscultation bilaterally. No chest tenderness. Abdomen: Soft, nontender, nondistended. No abdominal bruit or pulsatile masses. No hepatosplenomegaly Extremities: No peripheral edema, no signs of gross trauma or deformity. Active full range of motion of all extremities. Neuro: Cranial nerves II through XII intact, no focal neurological deficits. Skin: Clean dry and intact with no rash, purpura, petechiae, vesicles or pustules. Backs/flank: No CVA tenderness, no midline spinal tenderness, no deformity. Psych: Normal mood and affect. No SI, HI or acute psychosis. Const Vital Signs: 03/21/23 11:25 03/21/23 12:50 Temperature 97.8 F 97.8 F Temperature Source Temporal Pulse Rate 106 H 71 Respiratory Rate 16 16 Blood Pressure 142/93 H 124/76 H Blood Pressure Mean 109 Pulse Ox 98 100 Oxygen Delivery Method Room Air <Dr. Yue Allred MD - Last Filed: 03/21/23 12:58> Physical Exam Const Vital Signs: 03/21/23 11:25 03/21/23 12:50 Temperature 97.8 F 97.8 F Temperature Source Temporal Pulse Rate 106 H 71 Respiratory Rate 16 16 Blood Pressure 142/93 H 124/76 H Blood Pressure Mean 109 Pulse Ox 98 100 Oxygen Delivery Method Room Air MDM <HEAVEN Mejia - Last Filed: 03/21/23 12:39> [facility] Lab Data Labs: Laboratory Results - last 24 hr 03/21/23 11:50 HCG, Quant < 1 Treatment and Re-Evaluation :: Patient appears generally well, patient appears nontoxic, vital signs are stable. Patient presents to the emergency department for concern of an ectopic secondary to lower abdominal pain. I spoke with the patient at length, I looked at the patient's laboratory results over the last week, patient had 2 negative urine hCG test, as well as multiple normal laboratory values. How I do believe the patient is anxious, she is going through a stressful time in her life at this time. She is concerned that she might be might be ectopic. We decided to perform a laboratory study of hCG quantitative which was less than 1. At this time, I explained to her what this means, this abdominal pain is on the is been going on for multiple months. She does have outpatient follow-up. She looks well. There is no signs or symptoms of any infection, vital signs are stable. She will be discharged home, all questions answered, return precautions given. <Dr. Yue Allred MD - Last Filed: 03/21/23 12:58> [facility] Lab Data Labs: Laboratory Results - last 24 hr 03/21/23 11:50 HCG, Quant < 1 Treatment and Re-Evaluation :: Patient appears generally well, patient appears nontoxic, vital signs are stable. Patient presents to the emergency department for concern of an ectopic secondary to lower abdominal pain. I spoke with the patient at length, I looked at the patient's laboratory results over the last week, patient had 2 negative urine hCG test, as well as multiple normal laboratory values. How I do believe the patient is anxious, she is going through a stressful time in her life at this time. She is concerned that she might be might be ectopic. We decided to perform a laboratory study of hCG quantitative which was less than 1. At this time, I explained to her what this means, this abdominal pain is on the is been going on for multiple months. She does have outpatient follow-up. She looks well. There is no signs or symptoms of any infection, vital signs are stable. She will be discharged home, all questions answered, return precautions given. Patient seen and evaluated with MAYANK. I personally interviewed and examined the patient. I was involved in all aspects of patient's orders, interpretation of results, and treatment. Patient presents secondary to lower abdominal pain. She had lower abdominal pain for the last 3 to 4 weeks. She has been seen here as well as by her doctor and [facility]. She is concerned that she might be and have an ectopic . Patient sitting in bedside chair in no acute distress. Head and neck examination unremarkable. Heart is regular rate and rhythm. Lung sounds are clear. Abdomen is soft and nontender. Patient had a CT scan of her abdomen pelvis 3 weeks ago that was unremarkable. Lab work on recent visits is also reviewed. hCG quant is obtained today and is 0. Patient reassured with these findings and will follow-up with her primary care physician. Return instructions given. Discharge Plan Triage Chief Complaint: Abd Pain ED Midlevel Provider: Pantera Owen ED Provider: Yue Allred Dx/Rx/DC Orders Clinical Impression: Abdominal pain Instructions: Abdominal Pain Prescriptions: No Action azithromycin 250 mg tablet See Rx Instructions PO .COMPLEX Qty: 6 0RF Rx Instructions: For 250 mg dose pack: take 500 mg today (day 1), then 250 mg for 4 days (days 2-5) PO famotidine [Pepcid] 20 mg tablet 20 mg PO BID Qty: 20 0RF ondansetron [ondansetron] 4 mg tablet,disintegrating 4 mg PO Q8H PRN PRN (Reason: Nausea) Qty: 10 0RF Primary Care Provider: Tristin Verdugo Referrals: Tristin Verdugo DO [Primary Care Provider] - Activity Restrictions/Additional Instructions: Please continue your work-up outpatient. Disposition Disposition: Home, Self Care Discharge Date/Time: 03/21/23 12:51
[2023-03-21 12:33] LABS: hCG Titer Quant., Serum < 1 mIU/mL (1-3)
[2023-03-21 12:50] VITALS: BP 124/76; PULSE 71; RESP 16; TEMP 36.6; O2SAT 100
== END 2023-03-21 12:51 | disposition home or self-care (01) ==
PROVIDERS: Nurse Practitioner; Emergency Provider Emergency Medicine; PCP Student in an Organized Health Care Education/Training Program; Visit Provider Emergency Medicine
DX: R10.9 Unspecified abdominal pain (principal)
CPT/HCPCS: 36415; 84702; 99282

== ENCOUNTER → 2023-11-05 | Outpatient (CLI) | payer BC, SELFPAY ==
--- NOTE | 2023-11-05 12:56 | VDUE_ITS ---
Reason For Study: Right arm swelling and bruising Right Proximal Left Proximal Right jugular vein is spontaneous, widely Left jugular vein is spontaneous, widely patent, phasic, with no intraluminal patent, phasic, with no intraluminal echogenicity noted. echogenicity noted. Right subclavian vein is spontaneous, widely Left subclavian vein is spontaneous, widely patent, phasic, with no intraluminal patent, phasic, with no intraluminal echogenicity noted. echogenicity noted. Right Lower Arm Left Arm Right radial vein is compressible. Left axillary vein is spontaneous, patent, Right ulnar vein is compressible. phasic, competent, compressible and Right Arm demonstrates augmentation. Right axillary vein is spontaneous, patent, Left brachial vein is compressible. phasic, competent, compressible and Left cephalic vein is compressible. demonstrates augmentation. Left basilic vein is compressible. Right brachial vein is compressible. Left Lower Arm Cephalic vein at distal bicep is partially Left radial vein is compressible. compressible in sections. Left ulnar vein is compressible. Right basilic vein is compressible. Patient Safety Preliminary report given to Denise BALDERAS. VL/Venous Duplex US - Evin Extrem Interpretation Summary Acute superficial vein thrombosis noted in the right cephalic vein Deep veins of the bilateral upper extremities are patent and compressible segme ntally. There is no evidence of deep vein thrombosis. Superficial veins of the left upper extremity are patent and compressible segme ntally. There is no evidence of superficial vein thrombosis. Ordering Physician: Tristin Verdugo Referring Physician: Tristin Verdugo Performed By: Chary Chaparro RVT ???
== END | disposition home or self-care (01) ==
PROVIDERS: PCP Student in an Organized Health Care Education/Training Program; Referring Provider Student in an Organized Health Care Education/Training Program; Visit Provider Student in an Organized Health Care Education/Training Program
DX: M79.89 Other specified soft tissue disorders (principal)
CPT/HCPCS: 93970; 93971

== ENCOUNTER 2023-12-18 16:39 | Emergency (ER) | payer BC, SELFPAY ==
[2023-12-18 16:41] VITALS: BP 156/103; PULSE 113; RESP 16; TEMP 37.2; O2SAT 100; BMI 20.5
[2023-12-18 17:09] VITALS: BP 118/88; PULSE 115; RESP 17; O2SAT 98; BMI 20.5
--- NOTE | 2023-12-18 17:22 | EDS_ITS ---
HPI <Dr. Yue Allred MD - Last Filed: 12/18/23 18:20> History of Present Illness Chief Complaint: Meds Only <Liv Hicks RN - Last Filed: 12/18/23 22:23> History of Present Illness Informant: patient Onset/Context/Timing Onset: Yesterday Current Severity: Gone Narrative Narrative: Patient is a 33-year-old female who comes to the ED for concerns over antibiotic prescribed for strep throat. Patient was seen at [facility] yesterday and diagnosed with strep throat. Initially prescribed amoxicillin. Patient took 1 dose last p.m. at about 1800. Reported throat swelling and difficulty breathing which has now resolved. Did not take any medications for the allergic reaction. Patient then presented again today to [facility] and was prescribed Omnicef. Patient is concerned about taking Omnicef with her amoxicillin allergy and history of eosinophilic esophagitis. Patient reports she has had a sore throat for 2 weeks intermittent fever. Reports pain only with swallowing. Of note daughter was recently tested for influenza B. Patient is concerned about influenza for herself. Did not get tested for influenza at [facility]. Prior similar symptoms: No Recent Illness/Hospitalization: Yes [facility] <Dr. Yue Allred MD - Last Filed: 12/18/23 18:20> [facility] Medical History Allergic reaction Gestational diabetes Right ankle sprain Right foot sprain Vaginal delivery Home Medications azithromycin 250 mg tablet See Rx Instructions PO .COMPLEX Acute pharyngitis #6 tabs 03/08/23 [Rx Last Taken Unknown] famotidine 20 mg tablet (Pepcid) 20 mg PO BID acute gastritis #20 tabs 03/08/23 [Rx Last Taken Unknown] ondansetron 4 mg disintegrating tablet 4 mg PO Q8H PRN PRN Nausea #10 tabs 03/09/23 [Rx Last Taken Unknown] Kenalog 40 mg/mL suspension for injection (triamcinolone acetonide) 40 mg IM ONCE #1 mL 04/14/23 [Clinic Last Taken Unknown] azithromycin 500 mg tablet (Zithromax) 500 mg PO DAILY 5 days #5 tabs 12/18/23 [Rx Last Taken Unknown] Allergy/AdvReac Type Severity Reaction Status Date / Time amoxicillin Allergy Swelling Verified 12/18/23 16:41 latex Allergy Swelling Verified 12/18/23 16:40 Family History Other Anemia Heart disease Hypertension Suicide attempt Social History Smoking Status: Never smoker alcohol intake: never substance use type: does not use additional social history: DOES NOT USE ASPIRIN DOES USE IBUPROFEN ROS <Liv Hicks RN - Last Filed: 12/18/23 22:23> ROS ED Constitutional Constitutional ED: Reports fever(s); Denies chills or weight loss ENT ENT ED: Reports sore throat; Denies ear pain or rhinorrhea Cardiovascular Cardiovascular: Denies chest pain Respiratory/Chest Respiratory/Chest: Denies cough or dyspnea Gastrointestinal Gastrointestinal: Denies abdominal pain Musculoskeletal Musculoskeletal: Denies arthralgias or myalgias Neurologic Neurologic: Denies headache(s) Hematologic/Lymphatic Hematologic/Lymphatic: Reports systems reviewed and no addt'l complaints, except as documented EXAM <Dr. Yue Allred MD - Last Filed: 12/18/23 18:20> Physical Exam Const Vital Signs: 12/18/23 16:41 12/18/23 17:09 12/18/23 17:09 Temperature 99 F Temperature Source Temporal Pulse Rate 113 H 115 H 115 H Respiratory Rate 16 17 17 Blood Pressure 156/103 H 118/88 H 118/88 H Blood Pressure Mean 120 98 98 Pulse Ox 100 98 98 Oxygen Delivery Method Room Air Room Air HEENT HEENT Narrative: Patient tolerating secretions well and speaks with a strong voice. Posterior pharynx exam reveals mild erythema. Uvula midline. Eyes EOMs intact bilaterally <Liv Hicks RN - Last Filed: 12/18/23 22:23> Physical Exam Const Vital Signs: 12/18/23 16:41 12/18/23 17:09 12/18/23 17:09 Temperature 99 F Temperature Source Temporal Pulse Rate 113 H 115 H 115 H Respiratory Rate 16 17 17 Blood Pressure 156/103 H 118/88 H 118/88 H Blood Pressure Mean 120 98 98 Pulse Ox 100 98 98 Oxygen Delivery Method Room Air Room Air Positive well nourished and well developed General Appearance ED: well developed HEENT Reports moist mucous membranes Neck no lymphadenopathy Chest Wall inspection of chest normal Resp normal respiratory effort and clear to auscultation bilaterally Cardio regular rate and regular rhythm GI normal to inspection, nondistended, normoactive bowel sounds, non-tender and non-distended Auscultation: normoactive bowel sounds Palpation: soft Extremity normal to inspection Neuro oriented x3 Sensorium / Orientation: alert Psych mental status grossly normal Skin no rashes or lesions noted [facility] <Dr. Yue Allred MD - Last Filed: 12/18/23 18:20> [facility] Treatment and Re-Evaluation :: COVID RSV and influenza swab obtained. Will call patient if results are posi tive. Antibiotic changed to azithromycin 500 mg orally daily x 5 days. Patient advised to gargle with warm salt water for sore throat. Advised can use acetaminophen or ibuprofen for discomfort. Patient seen and evaluated with [employer] student. I performed all aspects of the interview, exam, treatment, and plan for home. Entirety of physician document has been reviewed by myself. Patient swab for COVID, influenza, and RSV is negative. Patient did reportedly test positive for strep at the urgent care. Given her reaction to amoxicillin with some cross-reactivity to cephalosporins, we chose to treat the patient with azithromycin instead as she has tolerated this medication in the past without difficulty. Prescription is sent to the pharmacy for her. She will discard the Omnicef. Patient is comfortable with the plan. <Liv Hicks RN - Last Filed: 12/18/23 22:23> [facility] Narrative Medical decision making narrative: Swab for COVID influenza and RSV ordered. History & Record Review Discussion w/independent historian: Patient Management Discussion w/another healthcare provider: Other (ED provider Dr. Allred) Treatment and Re-Evaluation :: COVID RSV and influenza swab obtained. Will call patient if results are positive. Antibiotic changed to azithromycin 500 mg orally daily x 5 days. Patient advised to gargle with warm salt water for sore throat. Advised can use acetaminophen or ibuprofen for discomfort. Discharge Plan Triage Chief Complaint: Meds Only ED Provider: Yue Allred Dx/Rx/DC Orders Clinical Impression: Pharyngitis Instructions: ED Pharyngitis Strep Confirmed ... Prescriptions: New azithromycin [Zithromax] 500 mg tablet 500 mg PO DAILY 5 Days Qty: 5 0RF No Action azithromycin 250 mg tablet See Rx Instructions PO .COMPLEX Qty: 6 0RF Rx Instructions: For 250 mg dose pack: take 500 mg today (day 1), then 250 mg for 4 days (days 2-5) PO famotidine [Pepcid] 20 mg tablet 20 mg PO BID Qty: 20 0RF triamcinolone acetonide [Kenalog] 40 mg/mL suspension 40 mg IM ONCE Qty: 1 0RF ondansetron [ondansetron] 4 mg tablet,disintegrating 4 mg PO Q8H PRN PRN (Reason: Nausea) Qty: 10 0RF Primary Care Provider: Tristin Verdugo Referrals: Tristin Verdugo DO [Primary Care Provider] - 1-2 Weeks Disposition Disposition: Home, Self Care Discharge Date/Time: 12/18/23 17:29
--- OUTSIDE RECORDS SUMMARY | 2023-12-18 18:22 | XMS RPT_ITS | CCD ---
Author Name Unknown Address [address] [facility] [address] [place] [address] Organization [facility] Care Team Providers Care Machine Worker Name Role Phone Tristin Verdugo DO Primary Care Provider [phone] ARACELI ABAD Attending Unavailable VERDUGO, TRISTIN Estrellita Primary Care Unavailable CHEYANNE ABADON Attending Unavailable VERDUGO, TRISTIN L Primary Care Unavailable OLGA RAMIREZ Attending Unavailable VERDUGO, TRISTIN Estrellita Primary Care Unavailable VERDUGO, TRISTIN Estrellita Primary Care Unavailable VERDUGO, TRISTIN Estrellita Attending Unavailable VERDUGO, TRISTIN L Primary Care Unavailable DENISE HOLT Attending Unavailable LEXI VELEZ Referring Unavailable VERDUGO, TRISTIN Estrellita Primary Care Unavailable SALVADOR TROY Attending Unavailable MARE XIAO Attending Unavailable VERDUGO, TRISTNI Estrellita Primary Care Unavailable SALVADOR TROY Referring Unavailable VERDUGO, TRISTIN L Primary Care Unavailable VERDUGO, TRISTIN L Attending Unavailable VERDUGO, TRISTIN L Primary Care Unavailable VERDUGO, TRISTIN L Referring Unavailable VERDUGO, TRISTIN L Primary Care Unavailable VERDUGO, TRISTIN L Referring Unavailable VERDUGO, TRISTIN L Primary Care Unavailable VERDUGO, TRISTIN L Referring Unavailable VERDUGO, TRISTIN L Primary Care Unavailable VERDUGO, TRISTIN L Referring Unavailable VERDUGO, TRISTIN L Primary Care Unavailable EDUARD ARACELI Attending Unavailable VERDUGO, TRISTIN L Primary Care Unavailable DELILAH BURKETT Attending Unavailable VERDUGO, TRISTIN L Primary Care Unavailable DELILAH BURKETT Referring Unavailable VERDUGO, TRISTIN L Primary Care Unavailable ABAD, ARACELI Referring Unavailable VERDUGO, TRISTIN L Primary Care Unavailable ABAD, ARACELI Attending Unavailable VERDUGO, TRISTIN L Primary Care Unavailable VERDUGO, TRISTIN L Primary Care Unavailable DENISE HOLT Referring Unavailable NATALY CASAS Referring Unavailable VERDUGO, TRISTIN L Primary Care Unavailable ABAD, ARACELI Attending Unavailable VERDUGO, TRISTIN L Primary Care Unavailable VERDUGO, TRISTIN L Primary Care Unavailable MEGHNA MENSAH Attending Unavail able MATTEO RUIZ Referring Unavailable VERDUGO, TRISTIN L Primary Care Unavailable VERDUGO, TRISTIN L Attending Unavailable VERDUGO, TRISTIN L Primary Care Unavailable VERDUGO, TRISTIN L Primary Care Unavailable VERDUGO, TRISTIN L Referring Unavailable VERDUGO, TRISTIN L Primary Care Unavailable [facility], DUONG Attending Unavailable VERDUGO, TRISTIN L Primary Care Unavailable DEJUAN, DUONG Referring Unavailable VERDUGO, TRISTIN L Primary Care Unavailable MATTEO RUIZ Attending Unavailable VERDUGO, TRISTIN L Primary Care Unavailable VERDUGO, TRISTIN L Referring Unavailable MATTEO RUIZ Referring Unavailable VERDUGO, TRISTIN L Primary Care Unavailable VERDUGO, TRISTIN L Primary Care Unavailable DENISE HOLT Referring Unavailable MEGAN PEREZ Attending Unavailable VERDUGO, TRISTIN L Primary Care Unavailable MEGAN PEREZ Referring Unavailable VERDUGO, TRISTIN L Primary Care Unavailable ALISTAIR OWEN Attending Unavailable VERDUGO, TRISTIN L Primary Care Unavailable VERDUGO, TRISTIN L Primary Care Unavailable VERDUGO, TRISTIN L Primary Care Unavailable VERDUGO, TRISTIN L Primary Care Unavailable MELANI AUGUST Attending Unavailable VERDUGO, TRISTIN L Primary Care Unavailable VERDUGO, TRISTIN L Attending Unavailable VERDUGO, TRISTIN L Primary Care Unavailable VERDUGO, TRISTIN L Referring Unavailable DELILAH BURKETT Attending Unavailable VERDUGO, TRISTIN L Primary Care Unavailable ANH DAVIS Attending Unavailable VERDUGO, TRISTIN L Primary Care Unavailable VERDUGO, TRISTIN L Referring Unavailable VERDUGO, TRISTIN L Primary Care Unavailable VERDUGO, TRISTIN L Referring Unavailable VERDUGO, TRISTIN L Primary Care Unavailable VERDUGO, TRISTIN L Primary Care Unavailable DENISE HOLT Attending Unavailable LEXI VELEZ Referring Unavailable ARACELI ABAD Attending Unavailable VERDUGO, TRISTIN L Primary Care Unavailable GOLD ABADYSON Referring Unavailable VERDUGO, TRISTIN L Primary Care Unavailable DELILAH BURKETT Referring Unavailable DELILAH BURKETT Attending Unavailable VERDUGO, TRISTIN L Primary Care Unavailable VERDUGO, TRISTIN L Primary Care Unavailable ENPTALI DENSON Attending Unavailable VERDUGO, TRISTIN L Primary Care Unavailable NEPTALI DENSON Referring Unavailable MATTEO RUIZ Attending Unavailable VERDUGO, TRISTIN L Primary Care Unavailable VERDUGO, TRISTIN L Primary Care Unavailable TRISTIN VERDUGO Primary Care Unavailable TRISTIN VERDUGO Attending Unavailable ALISTAIR OWEN Attending Unavailable TRISTIN VERDUGO Primary Care Unavailable Tristin Verdugo DO Primary Care Provider [phone] Allergies Allergy Classification Reported Allergen(s) Allergy Type Date of Onset Reaction(s) Facility (15 sources) Lactose; Translations: [LACTOSE] Drug Allergy 07-21-2023 Other: See Comments [facility] (15 sources) Wheat gluten extract; Translations: [GLUTEN] Drug Allergy 07-21-2023 Other: See Comments [facility] (4 sources) Latex; Translations: [LATEX] Drug Allergy 10-27-2023 [facility] Medications Current Medications Medication Drug Class(es) Dates Sig (Normalized) Sig (Original) cefdinir 300 mg oral capsule (1 source) Cephalosporin Antibacterial Start: 12-18-2023 End: 12-28-2023 take 1 capsule by mouth twice daily cefdinir (OMNICEF) 300 mg capsule Take 1 capsule by mouth two times a day for 10 days. 20 capsule 0 12/18/2023 12/28/2023 Active Completed/Discontinued Medications Medication Drug Class(es) Dates Sig (Normalized) Sig (Original) [id number] 200 actuat albuterol 0.09 mg/actuat metered dose inhaler (20 sources) beta2-Adrenergic Agonist Start: 04-25-2023 take 2 puff(s) by inhalation every four hours as needed for wheezing albuterol HFA (PROVENTIL HFA, VENTOLIN HFA) 90 mcg/actuation inhaler Indications: SOB (shortness of breath) Inhale 2 Puffs as instructed every 4 hours as needed for wheezing/shortnes s of breath. 8 g 0 04/25/2023 Active Problems Active Problems Problem Classification Problem Date Documented Da te Episodic/Chronic Adjustment disorders (3 sources) Stress and adjustment reaction; Translations: [Adjustment reaction to chronic stress] 07-21-2023 Chronic Allergic reactions (1 source) Allergic rhinitis due to food; Translations: [Allergic rhinitis due to food] Onset: 3 Chronic Anxiety disorders (20 sources) Generalized anxiety disorder; Translations: [Generalized anxiety disorder] Onset: 7 09-21-2017 Chronic Blindness and vision defects (1 source) Other visual disturbances; Translations: [Blurred vision, right eye] Onset: 4 Episodic Complication of device; implant or graft (3 sources) Pain; Translations: [Pain due to genitourinary prosthetic devices, implants and grafts, initial encounter] Onset: 3 Episodic Disorders of lipid metabolism (1 source) Dyslipidemia; Translations: [Hyperlipidemia, unspecified] 07-02-2023 Chronic Disorders of teeth and jaw (1 source) Temporomandibular joint disorder; Translations: [Unspecified temporomandibular joint disorder, unspecified side] Episodic Esophageal disorders (20 sources) Gastroesophageal reflux disease; Translations: [Gastro-esophageal reflux disease without esophagitis] Onset: 5 01-31-2015 Chronic Lymphadenitis (1 source) Localized enlarged lymph nodes; Translations: [Lymphadenopathy, submandibular] Onset: 4 Episodic Menstrual disorders (1 source) Irregular periods; Translations: [Irregular menstruation, unspecified] Chronic Miscellaneous mental health disorders (1 source) 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; 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-2023 Chronic Other circulatory disease (2 sources) Feeling of lump in throat; Translations: [Other specified symptoms and signs involving the circulatory and respiratory systems] 07-21-2023 Episodic Other complications of (20 sources) Anemia of ; Translations: [Anemia complicating , unspecified trimester] Onset: 2 01-17-2022 Chronic Other complications of (1 source) Anemia during - baby not yet delivered; Translations: [Anemia complicating , third trimester] Chronic Other connective tissue disease (1 source) Muscle pain; Translations: [Myalgia, unspecified site] Episodic Other connective tissue disease (1 source) Other specified soft tissue disorders; Translations: [Swelling of arm] Onset: 3 Episodic Other ear and sense organ disorders (1 source) Otalgia, right ear; Translations: [Mastoid pain, right] Onset: 4 Episodic Other eye disorders (1 source) Unspecified ptosis of right eyelid; Translations: [Ptosis of right eyelid] Onset: 4 Episodic Other gastrointestinal disorders (20 sources) Intolerance to food; Translations: [Malabsorption due to intolerance, not elsewhere classified] Onset: 3 Chronic Other gastrointestinal disorders (2 sources) Malabsorption due to intolerance, not elsewhere classified; Translations: [Food intolerance in adult] Onset: 3 Chronic Other gastrointestinal disorders (3 sources) Acute constipation; Translations: [Constipation, unspecified] Episodic Other gastrointestinal disorders (1 source) Diarrhea; Translations: [Diarrhea, unspecified] Episodic Other gastrointestinal disorders (7 sources) Dysphagia; Translations: [Dysphagia, unspecified] 07-03-2023 Episodic Other gastrointestinal disorders (2 sources) Swallowing painful; Translations: [Dysphagia, unspecified] 07-21-2023 Episodic Other gastrointestinal disorders (1 source) Heartburn; Translations: [Heartburn] 09-10-2023 Episodic Other liver diseases (20 sources) Steatosis of liver; Translations: [Fatty (change of) liver, not elsewhere classified] Onset: 3 Chronic Other liver diseases (1 source) Fatty (change of) liver, not elsewhere classified; Translations: [Fatty liver] Onset: 3 Chronic Other nervous system disorders (1 source) Paresthesia of hand ; Translations: [Anesthesia of skin] Episodic Other nervous system disorders (1 source) Paresthesia; Translations: [Paresthesia of skin] Episodic Other non-traumatic joint disorders (1 source) Joint pain; Translations: [Pain in unspecified joint] Episodic Other non-traumatic joint disorders (2 sources) Multiple joint pain; Translations: [Pain in unspecified joint] Episodic Other non-traumatic joint disorders (1 source) Joint stiffness; Translations: [Stiffness of unspecified joint, not elsewhere classified] Episodic Other non-traumatic joint disorders (1 source) Joint swelling; Translations: [Effusion, unspecified joint] Episodic Other nutritional; endocrine; and metabolic disorders (20 sources) Hyperbilirubinemia; Translations: [Other disorders of bilirubin metabolism] Onset: 3 Chronic Other nutritional; endocrine; and metabolic disorders (1 source) Other disorders of bilirubin metabolism; Translations: [Hyperbilirubinemia] Onset: 3 Chronic Other and delivery including normal (2 sources) state; Translations: [Encounter for care and examination of mother immediately after delivery] Episodic Other screening for suspected conditions (not mental disorders or infectious disease) (1 source) Cancer cervix screening status; Translations: [Encounter for screening for malignant neoplasm of cervix] Episodic Other skin disorders (1 source) Loss of hair; Translations: [Nonscarring hair loss, unspecified] 07-22-2023 Episodic Other skin disorders (1 source) Localized swelling, mass and lump, neck; Translations: [Localized swelling, mass or lump of neck] Onset: 4 Episodic Other upper respiratory disease (5 sources) Hoarse; Translations: [Dysphonia] 07-21-2023 Episodic Other upper respiratory infections (15 sources) Sore throat symptom; Translations: [Acute pharyngitis, unspecified] Onset: 3 Episodic Polyhydramnios and other problems of amniotic cavity (1 source) Amniotic fluid leaking; Translations: [Premature rupture of membranes, unspecified as to length of time between rupture and onset of labor, unspecified weeks of gestation] Episodic Residual codes; unclassified (1 source) Gestation period, 36 weeks; Translations: [36 weeks gestation of ] Episodic Residual codes; unclassified (1 source) Gestation period, 37 weeks; Translations: [37 weeks gestation of ] Episodic Residual codes; unclassified (2 sources) Gestation period, 38 weeks; Translations: [38 weeks gestation of ] Episodic Residual codes; unclassified (2 sources) Gestation period, 39 weeks; Translations: [39 weeks gestation of ] Episodic Residual codes; unclassified (1 source) Chill; Translations: [Chills (without fever)] Episodic Unclassified (1 source) Face pain; Translations: [Face pain] Onset: 4 Past or Other Problems Problem Classification Problem Date Documented Da te Episodic/Chronic Abdominal pain (5 sources) Epigastric pain; Translations: [Epigastric pain] Onset: 07-30-2023 Episodic Coagulation and hemorrhagic disorders (20 sources) Easy bruising; Translations: [Spontaneous ecchymoses] Onset: 06-16-2023 06-17-2023 Episodic Contraceptive and procreative management (5 sources) Patient encounter status; Translations: [Encounter for insertion of intrauterine contraceptive device] Onset: 01-20-2023 Episodic Diabetes or abnormal glucose tolerance complicating ; childbirth; or the puerperium (20 sources) Gestational diabetes mellitus; Translations: [Gestational diabetes mellitus in , diet controlled] Onset: 01-17-2022 Episodic Diseases of mouth; excluding dental (6 sources) Oral lesion; Translations: [Other lesions of oral mucosa] Onset: 01-14-2023 Episodic E Codes: Fall (1 source) Unspecified fall, initial encounter; Translations: [Fall, initial encounter] Onset: 02-24-2023 Episodic Malaise and fatigue (20 sources) Fatigue; Translations: [Other fatigue] Onset: 03-20-2023 Episodic Nausea and vomiting (20 sources) Nausea; Translations: [Nausea] Onset: 06-17-2023 Episodic Nonspecific chest pain (10 sources) Chest wall pain; Translations: [Other chest pain] Onset: 08-19-2023 08-19-2023 Episodic Other complications of (20 sources) Late entry into care; Translations: [Supervision of with insufficient care, unspecified trimester] Onset: 09-19-2015 11-11-2021 Episodic Other complications of (20 sources) Excessive growth affecting management of mother; Translations: [Maternal care for excessive growth, third trimester, not applicable or unspecified] Onset: 02-07-2022 02-07-2022 Episodic Other connective tissue disease (10 sources) Pain in left arm; Translations: [Pain in left arm] Onset: 08-19-2023 08-19-2023 Episodic Other connective tissue disease (1 source) Myalgia, unspecified site; Translations: [Myalgia] Onset: 03-20-2023 Episodic Other female genital disorders (1 source) Other specified noninflammatory disorders of vagina; Translations: [Vaginal lesion] Onset: 07-30-2023 Episodic Other gastrointestinal disorders (1 source) Dysphagia, unspecified; Translations: [Dysphagia, unspecified type] Onset: 09-10-2023 Episodic Other gastrointestinal disorders (1 source) Other fecal abnormalities; Translations: [Change in consistency of stool] Onset: 04-21-2023 Episodic Other gastrointestinal disorders (1 source) Diarrhea, unspecified; Translations: [Diarrhea, unspecified type] Onset: 01-14-2023 Episodic Other gastrointestinal disorders (1 source) Constipation, unspecified; Translations: [Acute constipation] Onset: 01-01-2023 Episodic Other injuries and conditions due to external causes (1 source) Unspecified injury of pelvis, initial encounter; Translations: [Vaginal trauma, initial encounter] Onset: 02-24-2023 Episodic Other nervous system disorders (1 source) Paresthesia of skin; Translations: [Paresthesias] Onset: 03-20-2023 Episodic Other non-traumatic joint disorders (2 sources) Pain in unspecified joint; Translations: [Pain in joint, multiple sites] Onset: 01-20-2023 Episodic Other skin disorders (1 source) Nonscarring hair loss, unspecified; Translations: [Hair thinning] Onset: 07-25-2023 Episodic Other upper respiratory disease (1 source) Dysphonia; Translations: [Hoarseness] Onset: 09-10-2023 Episodic Residual codes; unclassified (20 sources) Down's child in family; Translations: [Family history of other congenital malformations, deformations and chromosomal abnormalities] Onset: 09-19-2021 09-19-2021 Episodic Residual codes; unclassified (20 sources) FH: Chromosomal anomaly; Translations: [Family history of other congenital malformations, deformations and chromosomal abnormalities] Onset: 09-19-2021 09-19-2021 Episodic Residual codes; unclassified (1 source) Chills (without fever); Translations: [Chills] Onset: 04-21-2023 Episodic Spondylosis; intervertebral disc disorders; other back problems (11 sources) Neck pain; Translations: [Cervicalgia] Onset: 08-19-2023 08-19-2023 Episodic Results Test Name Value Interpretation Reference Range Facil ity Vital Signs Date Time Vital Sign Value Performing Clinician Ehsan nair 12-18-2023 10:03-0500 Body temperature 98.91 [degF] Nallely Tom PA-C Work Phone: [facility] 12-18-2023 10:03-0500 Body weight 50.98 kg Nallely Tom PA-C Work Phone: [facility] 12-18-2023 10:03-0500 Diastolic blood pressure 64 mm[Hg] Nallely Tom PA-C Work Phone: [facility] 12-18-2023 10:03-0500 Heart rate 100 /min Nallely Tom PA-C Work Phone: [facility] 12-18-2023 10:03-0500 Respiratory rate 18 /min Nlalely Tom PA-C Work Phone: [facility] 12-18-2023 10:03-0500 SaO2% (BldA) [Mass fraction] 98 % Nallely Tom PA-C Work Phone: [facility] 12-18-2023 10:03-0500 Systolic blood pressure 102 mm[Hg] Nallely Tom PA-C Work Phone: [facility] 12-17-2023 16:10-0500 Body temperature 99.9 [degF] Lexi Velez APRN.FIBER ARTIST Work Phone: [facility] 12-17-2023 16:10-0500 Body weight 53.07 kg Lexi Velez APRN.FIBER ARTIST Work Phone: [facility] 12-17-2023 16:10-0500 Diastolic blood pressure 87 mm[Hg] Lexi Velez APRN.FIBER ARTIST Work Phone: [facility] 12-17-2023 16:10-0500 Heart rate 105 /min Lexi Velez APRN.FIBER ARTIST Work Phone: [facility] 12-17-2023 16:10-0500 Respiratory rate 18 /min Lexi Velez APRN.FIBER ARTIST Work Phone: [facility] 12-17-2023 16:10-0500 SaO2% (BldA) [Mass fraction] 98 % Lexi Velez APRN.FIBER ARTIST Work Phone: [facility] 12-17-2023 16:10-0500 Systolic blood pressure 127 mm[Hg] Lexi Velez APRN.FIBER ARTIST Work Phone: [facility] 09-22-2023 19:58-0500 Body temperature 97.9 [degF] Lexi Velez APRN.FIBER ARTIST Work Phone: [facility] 09-22-2023 19:58-0500 Body weight 51.26 kg Lexi Velez APRN.FIBER ARTIST Work Phone: [facility] 09-22-2023 19:58-0500 Diastolic blood pressure 64 mm[Hg] Lexi Velez MAINTENANCE JOURNEYMAN.FIBER ARTIST Work Phone: [facility] 09-22-2023 19:58-0500 Heart rate 88 /min Lexi Velez MAINTENANCE JOURNEYMAN.FIBER ARTIST Work Phone: [facility] 09-22-2023 19:58-0500 Respiratory rate 16 /min Lexi James MAINTENANCE JOURNEYMAN.FIBER ARTIST Work Phone: [facility] 09-22-2023 19:58-0500 SaO2% (BldA) [Mass fraction] 99 % Lexi James MAINTENANCE JOURNEYMAN.FIBER ARTIST Work Phone: [facility] 09-22-2023 19:58-0500 Systolic blood pressure 110 mm[Hg] Lexi Velez MAINTENANCE JOURNEYMAN.FIBER ARTIST Work Phone: [facility] 09-10-2023 12:30-0400 Diastolic blood pressure 61 mm[Hg] Megan Perez MD Work Phone: [facility] 09-10-2023 12:30-0400 Heart rate 78 /min Megan Perez MD Work Phone: [facility] 09-10-2023 12:30-0400 Respiratory rate 16 /min Megan Perez MD Work Phone: [facility] 09-10-2023 12:30-0400 SaO2% (BldA) [Mass fraction] 100 % Megan Perez MD Work Phone: [facility] 09-10-2023 12:30-0400 Systolic blood pressure 105 mm[Hg] Megan Perez MD Work Phone: [facility] 09-10-2023 11:17-0400 Body height 160 cm Megan Perez MD Work Phone: [facility] 09-10-2023 11:17-0400 Body temperature 98.49 [degF] Megan Perez MD Work Phone: [facility] 09-10-2023 11:17-0400 Body weight 48.99 kg Megan Perez MD Work Phone: [facility] 07-22-2023 13:37-0400 Body weight 49.17 kg Araceli Abad APRN.FIBER ARTIST Work Phone: [facility] 07-22-2023 13:37-0400 Diastolic blood pressure 62 mm[Hg] Araceli Abad MAINTENANCE JOURNEYMAN.FIBER ARTIST Work Phone: [facility] 07-22-2023 13:37-0400 Heart rate 80 /min Araceli Abad MAINTENANCE JOURNEYMAN.FIBER ARTIST Work Phone: [facility] 07-22-2023 13:37-0400 Respiratory rate 12 /min Araceli Abad APRN.FIBER ARTIST Work Phone: [facility] 07-22-2023 13:37-0400 Systolic blood pressure 120 mm[Hg] Araceli Abad MAINTENANCE JOURNEYMAN.FIBER ARTIST Work Phone: [facility] 07-21-2023 09:15-0400 Body height 160 cm Denise Holt APRN.FIBER ARTIST Work Phone: [facility] 07-21-2023 09:15-0400 Body weight 49.71 kg Denise Holt APRN.FIBER ARTIST Work Phone: [facility] 07-21-2023 09:15-0400 Diastolic blood pressure 88 mm[Hg] Denise Holt APRN.FIBER ARTIST Work Phone: [facility] 07-21-2023 09:15-0400 Heart rate 77 /min Denise Holt APRN.FIBER ARTIST Work Phone: [facility] 07-21-2023 09:15-0400 SaO2% (BldA) [Mass fraction] 100 % Denise Holt APRN.FIBER ARTIST Work Phone: [facility] 07-21-2023 09:15-0400 Systolic blood pressure 119 mm[Hg] eDnise Holt APRN.FIBER ARTIST Work Phone: [facility] 07-03-2023 17:59-0400 Body temperature 98.8 [degF] Lexi Velez APRN.FIBER ARTIST Work Phone: [facility] 07-03-2023 17:59-0400 Body weight 50.8 kg Lexi Velez APRN.FIBER ARTIST Work Phone: [facility] 07-03-2023 17:59-0400 Diastolic blood pressure 100 mm[Hg] Lexi Velez APRN.FIBER ARTIST Work Phone: [facility] 07-03-2023 17:59-0400 Heart rate 82 /min Lexi Velez APRN.FIBER ARTIST Work Phone: [facility] 07-03-2023 17:59-0400 Respiratory rate 18 /min Lexi Velez APRN.FIBER ARTIST Work Phone: [facility] 07-03-2023 17:59-0400 SaO2% (BldA) [Mass fraction] 100 % Lexi Velez APRN.FIBER ARTIST Work Phone: [facility] 07-03-2023 17:59-0400 Systolic blood pressure 140 mm[Hg] Lexi Velez APRN.FIBER ARTIST Work Phone: [facility] 07-01-2023 10:57-0400 Body height 160.[address] [facility] 07-01-2023 10:57-0400 Body weight 50.[address] [facility] 06-17-2023 14:53-0400 Body weight 50.8 kg Delilah Josetawana MAINTENANCE JOURNEYMAN.CNM Work Phone: [facility] 06-17-2023 14:53-0400 Diastolic blood pressure 66 mm[Hg] Delilah Plotts MAINTENANCE JOURNEYMAN.CNM Work Phone: [facility] 06-17-2023 14:53-0400 Systolic blood pressure 108 mm[Hg] Delilah Plotts MAINTENANCE JOURNEYMAN.CNM Work Phone: [facility] 06-16-2023 11:07-0400 Body height 160.5 cm Tristin Verdugo DO Work Phone: [facility] 06-16-2023 11:07-0400 Body temperature 97 [degF] Tristin Verdugo DO Work Phone: [facility] 06-16-2023 11:07-0400 Body weight 50.8 kg Tristin Verdugo DO Work Phone: [facility] 06-16-2023 11:07-0400 Diastolic blood pressure 80 mm[Hg] Tristin Verdugo DO Work Phone: [facility] 06-16-2023 11:07-0400 Heart rate 80 /min Tristin Verdugo DO Work Phone: [facility] 06-16-2023 11:07-0400 Respiratory rate 12 /min Tristin Verdugo DO Work Phone: [facility] 06-16-2023 11:07-0400 Systolic blood pressure 110 mm[Hg] Tristin Verdugo DO Work Phone: [facility] 05-01-2023 19:00-0400 Body temperature 97.5 [degF] Edgar Varghese MAINTENANCE JOURNEYMAN.FIBER ARTIST Work Phone: [facility] 05-01-2023 19:00-0400 Body weight 53.52 kg Edgar Kwong MAINTENANCE JOURNEYMAN.FIBER ARTIST Work Phone: [facility] 05-01-2023 19:00-0400 Diastolic blood pressure 80 mm[Hg] Edgar Varghese MAINTENANCE JOURNEYMAN.FIBER ARTIST Work Phone: [facility] 05-01-2023 19:00-0400 Heart rate 82 /min Edgar Varghese MAINTENANCE JOURNEYMAN.FIBER ARTIST Work Phone: [facility] 05-01-2023 19:00-0400 Respiratory rate 18 /min Edgar Varghese MAINTENANCE JOURNEYMAN.FIBER ARTIST Work Phone: [facility] 05-01-2023 19:00-0400 SaO2% (BldA) [Mass fraction] 99 % Edgar Varghese MAINTENANCE JOURNEYMAN.FIBER ARTIST Work Phone: [facility] 05-01-2023 19:00-0400 Systolic blood pressure 128 mm[Hg] Edgar Varghese MAINTENANCE JOURNEYMAN.FIBER ARTIST Work Phone: [facility] 03-20-2023 10:29-0400 Body temperature 97.7 [degF] Tristin Verdugo DO Work Phone: [facility] 03-20-2023 10:29-0400 Body weight 58.06 kg Tristin Verdugo DO Work Phone: [facility] 03-20-2023 10:29-0400 Diastolic blood pressure 60 mm[Hg] Tristin Verdugo DO Work Phone: [facility] 03-20-2023 10:29-0400 Heart rate 80 /min Tristin Verdugo DO Work Phone: [facility] 03-20-2023 10:29-0400 Respiratory rate 12 /min Tristin Verdugo DO Work Phone: [facility] 03-20-2023 10:29-0400 Systolic blood pressure 110 mm[Hg] Tristin Verdugo DO Work Phone: [facility] 03-09-2023 09:54-0400 Body temperature 97.59 [degF] Olga Ramirez PA-C Work Phone: [facility] 03-09-2023 09:54-0400 Diastolic blood pressure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 upper quadrant 05/31/2015 05/31/2015 C. difficile diarrhea 07/07/2014 09/19/2015 Other acne 08/24/2007 07/07/2014 documented as of this encounter (statuses as of 02/21/2022) [facility] History of Past illness Narrative* Problem Noted Date Resolved Date Encounter for supervision of normal first in third trimester 12/11/2015 04/04/2016 Encounter for supervision of normal first in second trimester 09/19/2015 04/04/2016 Esophageal reflux 05/31/2015 05/31/2015 Abdominal pain, left upper quadrant 05/31/2015 05/31/2015 C. difficile diarrhea 07/07/2014 09/19/2015 Other acne 08/24/2007 07/07/2014 documented as of this encounter (statuses as of 02/27/2022) [place] [id number] History of Past illness Narrative* Problem Noted Date Resolved Date Encounter for supervision of normal first in third trimester 12/11/2015 04/04/2016 Encounter for supervision of normal first in second trimester 09/19/2015 04/04/2016 Esophageal reflux 05/31/2015 05/31/2015 Abdominal pain, left upper quadrant 05/31/2015 05/31/2015 C. difficile diarrhea 07/07/2014 09/19/2015 Other acne 08/24/2007 07/07/2014 documented as of this encounter (statuses as of 03/03/2022) [place] [id number] History of Past illness Narrative* Problem Noted Date Resolved Date Encounter for supervision of normal first in third trimester 12/11/2015 04/04/2016 Encounter for supervision of normal first in second trimester 09/19/2015 04/04/2016 Esophageal reflux 05/31/2015 05/31/2015 Abdominal pain, left upper quadrant 05/31/2015 05/31/2015 C. difficile diarrhea 07/07/2014 09/19/2015 Other acne 08/24/2007 07/07/2014 documented as of this encounter (statuses as of 03/05/2022) [place] [id number] History of Past illness Narrative* Problem Noted Date Resolved Date Encounter for supervision of normal first in third trimester 12/11/2015 04/04/2016 Encounter for supervision of normal first in second trimester 09/19/2015 04/04/2016 Esophageal reflux 05/31/2015 05/31/2015 Abdominal pain, left upper quadrant 05/31/2015 05/31/2015 C. difficile diarrhea 07/07/2014 09/19/2015 Other acne 08/24/2007 07/07/2014 documented as of this encounter (statuses as of 03/05/2022) [address]26-2016 History of Past illness Narrative* Problem Noted Date Resolved Date Encounter for supervision of normal first in third trimester 12/11/2015 04/04/2016 Encounter for supervision of normal first in second trimester 09/19/2015 04/04/2016 Esophageal reflux 05/31/2015 05/31/2015 Abdominal pain, left upper quadrant 05/31/2015 05/31/2015 C. difficile diarrhea 07/07/2014 09/19/2015 Other acne 08/24/2007 07/07/2014 documented as of this encounter (statuses as of 03/10/2022) [facility] History of Past illness Narrative* Problem Noted Date Resolved Date Encounter for supervision of normal first in third trimester 12/11/2015 04/04/2016 Encounter for supervision of normal first in second trimester 09/19/2015 04/04/2016 Esophageal reflux 05/31/2015 05/31/2015 Abdominal pain, left upper quadrant 05/31/2015 05/31/2015 C. difficile diarrhea 07/07/2014 09/19/2015 Other acne 08/24/2007 07/07/2014 documented as of this encounter (statuses as of 03/18/2022) [facility] History of Past illness Narrative* Problem Noted Date Resolved Date Encounter for supervision of normal first in third trimester 12/11/2015 04/04/2016 Encounter for supervision of normal first in second trimester 09/19/2015 04/04/2016 Esophageal reflux 05/31/2015 05/31/2015 Abdominal pain, left upper quadrant 05/31/2015 05/31/2015 C. difficile diarrhea 07/07/2014 09/19/2015 Other acne 08/24/2007 07/07/2014 documented as of this encounter (statuses as of 03/21/2022) [place] [id number] History of Past illness Narrative* Problem Noted Date Resolved Date Encounter for supervision of normal first in third trimester 12/11/2015 04/04/2016 Encounter for supervision of normal first in second trimester 09/19/2015 04/04/2016 Esophageal reflux 05/31/2015 05/31/2015 Abdominal pain, left upper quadrant 05/31/2015 05/31/2015 C. difficile diarrhea 07/07/2014 09/19/2015 Other acne 08/24/2007 07/07/2014 documented as of this encounter (statuses as of 04/16/2022) [facility] History of Past illness Narrative* Problem Noted Date Resolved Date Encounter for supervision of normal first in third trimester 12/11/2015 04/04/2016 Encounter for supervision of normal first in second trimester 09/19/2015 04/04/2016 Esophageal reflux 05/31/2015 05/31/2015 Abdominal pain, left upper quadrant 05/31/2015 05/31/2015 C. difficile diarrhea 07/07/2014 09/19/2015 Other acne 08/24/2007 07/07/2014 documented as of this encounter (statuses as of 11/05/2022) [facility] History of Past illness Narrative* Problem Noted Date Resolved Date Encounter for supervision of normal first in third trimester 12/11/2015 04/04/2016 Encounter for supervision of normal first in second trimester 09/19/2015 04/04/2016 Esophageal reflux 05/31/2015 05/31/2015 Abdominal pain, left upper quadrant 05/31/2015 05/31/2015 C. difficile diarrhea 07/07/2014 09/19/2015 Other acne 08/24/2007 07/07/2014 documented as of this encounter (statuses as of 11/19/2022) [facility] History of Past illness Narrative* Problem Noted Date Resolved Date Encounter for supervision of normal first in third trimester 12/11/2015 04/04/2016 Encounter for supervision of normal first in second trimester 09/19/2015 04/04/2016 Esophageal reflux 05/31/2015 05/31/2015 Abdominal pain, left upper quadrant 05/31/2015 05/31/2015 C. difficile diarrhea 07/07/2014 09/19/2015 Other acne 08/24/2007 07/07/2014 documented as of this encounter (statuses as of 12/25/2022) [facility] History of Past illness Narrative* Problem Noted Date Resolved Date Encounter for supervision of normal first in third trimester 12/11/2015 04/04/2016 Encounter for supervision of normal first in second trimester 09/19/2015 04/04/2016 Esophageal reflux 05/31/2015 05/31/2015 Abdominal pain, left upper quadrant 05/31/2015 05/31/2015 C. difficile diarrhea 07/07/2014 09/19/2015 Other acne 08/24/2007 07/07/2014 documented as of this encounter (statuses as of 12/31/2022) [facility] History of Past illness Narrative* Problem Noted Date Resolved Date Encounter for supervision of normal first in third trimester 12/11/2015 04/04/2016 Encounter for supervision of normal first in second trimester 09/19/2015 04/04/2016 Esophageal reflux 05/31/2015 05/31/2015 Abdominal pain, left upper quadrant 05/31/2015 05/31/2015 C. difficile diarrhea 07/07/2014 09/19/2015 Other acne 08/24/2007 07/07/2014 documented as of this encounter (statuses as of 01/01/2023) [facility] History of Past illness Narrative* Problem Noted Date Resolved Date Encounter for supervision of normal first in third trimester 12/11/2015 04/04/2016 Encounter for supervision of normal first in second trimester 09/19/2015 04/04/2016 Esophageal reflux 05/31/2015 05/31/2015 Abdominal pain, left upper quadrant 05/31/2015 05/31/2015 C. difficile diarrhea 07/07/2014 09/19/2015 Other acne 08/24/2007 07/07/2014 documented as of this encounter (statuses as of 01/01/2023) [facility] History of Past illness Narrative* Problem Noted Date Resolved Date Encounter for supervision of normal first in third trimester 12/11/2015 04/04/2016 Encounter for supervision of normal first in second trimester 09/19/2015 04/04/2016 Esophageal reflux 05/31/2015 05/31/2015 Abdominal pain, left upper quadrant 05/31/2015 05/31/2015 C. difficile diarrhea 07/07/2014 09/19/2015 Other acne 08/24/2007 07/07/2014 documented as of this encounter (statuses as of 01/01/2023) [facility] History of Past illness Narrative* Problem Noted Date Resolved Date Encounter for supervision of normal first in third trimester 12/11/2015 04/04/2016 Encounter for supervision of normal first in second trimester 09/19/2015 04/04/2016 Esophageal reflux 05/31/2015 05/31/2015 Abdominal pain, left upper quadrant 05/31/2015 05/31/2015 C. difficile diarrhea 07/07/2014 09/19/2015 Other acne 08/24/2007 07/07/2014 documented as of this encounter (statuses as of 01/14/2023) [facility] History of Past illness Narrative* Problem Noted Date Resolved Date Encounter for supervision of normal first in third trimester 12/11/2015 04/04/2016 Encounter for supervision of normal first in second trimester 09/19/2015 04/04/2016 Esophageal reflux 05/31/2015 05/31/2015 Abdominal pain, left upper quadrant 05/31/2015 05/31/2015 C. difficile diarrhea 07/07/2014 09/19/2015 Other acne 08/24/2007 07/07/2014 documented as of this encounter (statuses as of 01/20/2023) [facility] History of Past illness Narrative* Problem Noted Date Resolved Date Encounter for supervision of normal first in third trimester 12/11/2015 04/04/2016 Encounter for supervision of normal first in second trimester 09/19/2015 04/04/2016 Esophageal reflux 05/31/2015 05/31/2015 Abdominal pain, left upper quadrant 05/31/2015 05/31/2015 C. difficile diarrhea 07/07/2014 09/19/2015 Other acne 08/24/2007 07/07/2014 documented as of this encounter (statuses as of 01/28/2023) [facility] History of Past illness Narrative* Problem Noted Date Resolved Date Encounter for supervision of normal first in third trimester 12/11/2015 04/04/2016 Encounter for supervision of normal first in second trimester 09/19/2015 04/04/2016 Esophageal reflux 05/31/2015 05/31/2015 Abdominal pain, left upper quadrant 05/31/2015 05/31/2015 C. difficile diarrhea 07/07/2014 09/19/2015 Other acne 08/24/2007 07/07/2014 documented as of this encounter (statuses as of 02/03/2023) [facility] History of Past illness Narrative* Problem Noted Date Resolved Date Encounter for supervision of normal first in third trimester 12/11/2015 04/04/2016 Encounter for supervision of normal first in second trimester 09/19/2015 04/04/2016 Esophageal reflux 05/31/2015 05/31/2015 Abdominal pain, left upper quadrant 05/31/2015 05/31/2015 C. difficile diarrhea 07/07/2014 09/19/2015 Other acne 08/24/2007 07/07/2014 documented as of this encounter (statuses as of 02/05/2023) [facility] History of Past illness Narrative* Problem Noted Date Resolved Date Encounter for supervision of normal first in third trimester 12/11/2015 04/04/2016 Encounter for supervision of normal first in second trimester 09/19/2015 04/04/2016 Esophageal reflux 05/31/2015 05/31/2015 Abdominal pain, left upper quadrant 05/31/2015 05/31/2015 C. difficile diarrhea 07/07/2014 09/19/2015 Other acne 08/24/2007 07/07/2014 documented as of this encounter (statuses as of 02/06/2023) [facility] History of Past illness Narrative* Problem Noted Date Resolved Date Encounter for supervision of normal first in third trimester 12/11/2015 04/04/2016 Encounter for supervision of normal first in second trimester 09/19/2015 04/04/2016 Esophageal reflux 05/31/2015 05/31/2015 Abdominal pain, left upper quadrant 05/31/2015 05/31/2015 C. difficile diarrhea 07/07/2014 09/19/2015 Other acne 08/24/2007 07/07/2014 documented as of this encounter (statuses as of 02/24/2023) [facility] History of Past illness Narrative* Problem Noted Date Resolved Date Encounter for supervision of normal first in third trimester 12/11/2015 04/04/2016 Encounter for supervision of normal first in second trimester 09/19/2015 04/04/2016 Esophageal reflux 05/31/2015 05/31/2015 Abdominal pain, left upper quadrant 05/31/2015 05/31/2015 C. difficile diarrhea 07/07/2014 09/19/2015 Other acne 08/24/2007 07/07/2014 documented as of this encounter (statuses as of 03/09/2023) [facility] History of Past illness Narrative* Problem Noted Date Resolved Date Encounter for supervision of normal first in third trimester 12/11/2015 04/04/2016 Encounter for supervision of normal first in second trimester 09/19/2015 04/04/2016 Esophageal reflux 05/31/2015 05/31/2015 Abdominal pain, left upper quadrant 05/31/2015 05/31/2015 C. difficile diarrhea 07/07/2014 09/19/2015 Other acne 08/24/2007 07/07/2014 documented as of this encounter (statuses as of 03/20/2023) [place] [address]26-2016 History of Past illness Narrative* Problem Noted Date Resolved Date Encounter for supervision of normal first in third trimester 12/11/2015 04/04/2016 Encounter for supervision of normal first in second trimester 09/19/2015 04/04/2016 Esophageal reflux 05/31/2015 05/31/2015 Abdominal pain, left upper quadrant 05/31/2015 05/31/2015 C. difficile diarrhea 07/07/2014 09/19/2015 Other acne 08/24/2007 07/07/2014 documented as of this encounter (statuses as of 03/26/2023) [place] [address]26-2016 History of Past illness Narrative* Problem Noted Date Resolved Date Encounter for supervision of normal first in third trimester 12/11/2015 04/04/2016 Encounter for supervision of normal first in second trimester 09/19/2015 04/04/2016 Esophageal reflux 05/31/2015 05/31/2015 Abdominal pain, left upper quadrant 05/31/2015 05/31/2015 C. difficile diarrhea 07/07/2014 09/19/2015 Other acne 08/24/2007 07/07/2014 documented as of this encounter (statuses as of 03/26/2023) [facility] History of Past illness Narrative* Problem Noted Date Resolved Date Encounter for supervision of normal first in third trimester 12/11/2015 04/04/2016 Encounter for supervision of normal first in second trimester 09/19/2015 04/04/2016 Esophageal reflux 05/31/2015 05/31/2015 Abdominal pain, left upper quadrant 05/31/2015 05/31/2015 C. difficile diarrhea 07/07/2014 09/19/2015 Other acne 08/24/2007 07/07/2014 documented as of this encounter (statuses as of 05/02/2023) [place] [address]26-2016 History of Past illness Narrative* Problem Noted Date Diagnosed Date Resolved Date Encounter for supervision of normal first in third trimester 12/11/2015 04/04/2016 Encounter for supervision of normal first in second trimester 09/19/2015 04/04/2016 Esophageal reflux 05/31/2015 05/31/2015 Abdominal pain, left upper quadrant 05/31/2015 05/31/2015 C. difficile diarrhea 07/07/20142014 Other acne 08/24/2007 07/07/2014 documented as of this encounter (statuses as of 06/18/2023) [facility] History of Past illness Narrative* Problem Noted Date Diagnosed Date Resolved Date Encounter for supervision of normal first in third trimester 12/11/2015 04/04/2016 Encounter for supervision of normal first in second trimester 09/19/2015 04/04/2016 Esophageal reflux 05/31/2015 05/31/2015 Abdominal pain, left upper quadrant 05/31/2015 05/31/2015 C. difficile diarrhea 07/07/20142014 Other acne 08/24/2007 07/07/2014 documented as of this encounter (statuses as of 06/18/2023) [facility] History of Past illness Narrative* Problem Noted Date Diagnosed Date Resolved Date Encounter for supervision of normal first in third trimester 12/11/2015 04/04/2016 Encounter for supervision of normal first in second trimester 09/19/2015 04/04/2016 Esophageal reflux 05/31/2015 05/31/2015 Abdominal pain, left upper quadrant 05/31/2015 05/31/2015 C. difficile diarrhea 07/07/20142014 Other acne 08/24/2007 07/07/2014 documented as of this encounter (statuses as of 07/02/2023) [facility] History of Past illness Narrative* Problem Noted Date Diagnosed Date Resolved Date Encounter for supervision of normal first in third trimester 12/11/2015 04/04/2016 Encounter for supervision of normal first in second trimester 09/19/2015 04/04/2016 Esophageal reflux 05/31/2015 05/31/2015 Abdominal pain, left upper quadrant 05/31/2015 05/31/2015 C. difficile diarrhea 07/07/20142014 Other acne 08/24/2007 07/07/2014 documented as of this encounter (statuses as of 07/04/2023) [facility] History of Past illness Narrative* Problem Noted Date Diagnosed Date Resolved Date Encounter for supervision of normal first in third trimester 12/11/2015 04/04/2016 Encounter for supervision of normal first in second trimester 09/19/2015 04/04/2016 Esophageal reflux 05/31/2015 05/31/2015 Abdominal pain, left upper quadrant 05/31/2015 05/31/2015 C. difficile diarrhea 07/07/20142014 Other acne 08/24/2007 07/07/2014 documented as of this encounter (statuses as of 07/22/2023) [facility] History of Past illness Narrative* Problem Noted Date Diagnosed Date Resolved Date Encounter for supervision of normal first in third trimester 12/11/2015 04/04/2016 Encounter for supervision of normal first in second trimester 09/19/2015 04/04/2016 Esophageal reflux 05/31/2015 05/31/2015 Abdominal pain, left upper quadrant 05/31/2015 05/31/2015 C. difficile diarrhea 07/07/20142014 Other acne 08/24/2007 07/07/2014 documented as of this encounter (statuses as of 07/23/2023) [facility] History of Past illness Narrative* Problem Noted Date Diagnosed Date Resolved Date Encounter for supervision of normal first in third trimester 12/11/2015 04/04/2016 Encounter for supervision of normal first in second trimester 09/19/2015 04/04/2016 Esophageal reflux 05/31/2015 05/31/2015 Abdominal pain, left upper quadrant 05/31/2015 05/31/2015 C. difficile diarrhea 07/07/20142014 Other acne 08/24/2007 07/07/2014 documented as of this encounter (statuses as of 09/03/2023) [facility] History of Past illness Narrative* Problem Noted Date Diagnosed Date Resolved Date Encounter for supervision of normal first in third trimester 12/11/2015 04/04/2016 Encounter for supervision of normal first in second trimester 09/19/2015 04/04/2016 Esophageal reflux 05/31/2015 05/31/2015 Abdominal pain, left upper quadrant 05/31/2015 05/31/2015 C. difficile diarrhea 07/07/20142014 Other acne 08/24/2007 07/07/2014 documented as of this encounter (statuses as of 09/10/2023) [facility] History of Past illness Narrative* Problem Noted Date Diagnosed Date Resolved Date Encounter for supervision of normal first in third trimester 12/11/2015 04/04/2016 Encounter for supervision of normal first in second trimester 09/19/2015 04/04/2016 Esophageal reflux 05/31/2015 05/31/2015 Abdominal pain, left upper quadrant 05/31/2015 05/31/2015 C. difficile diarrhea 07/07/20142014 Other acne 08/24/2007 07/07/2014 documented as of this encounter (statuses as of 09/10/2023) [facility] History of Past illness Narrative* Problem Noted Date Diagnosed Date Resolved Date Encounter for supervision of normal first in third trimester 12/11/2015 04/04/2016 Encounter for supervision of normal first in second trimester 09/19/2015 04/04/2016 Esophageal reflux 05/31/2015 05/31/2015 Abdominal pain, left upper quadrant 05/31/2015 05/31/2015 C. difficile diarrhea 07/07/20142014 Other acne 08/24/2007 07/07/2014 documented as of this encounter (statuses as of 09/11/2023) [facility] History of Past illness Narrative* Problem Noted Date Diagnosed Date Resolved Date Encounter for supervision of normal first in third trimester 12/11/2015 04/04/2016 Encounter for supervision of normal first in second trimester 09/19/2015 04/04/2016 Esophageal reflux 05/31/2015 05/31/2015 Abdominal pain, left upper quadrant 05/31/2015 05/31/2015 C. difficile diarrhea 07/07/20142014 Other acne 08/24/2007 07/07/2014 documented as of this encounter (statuses as of 09/17/2023) [facility] History of Past illness Narrative* Problem Noted Date Diagnosed Date Resolved Date Encounter for supervision of normal first in third trimester 12/11/2015 04/04/2016 Encounter for supervision of normal first in second trimester 09/19/2015 04/04/2016 Esophageal reflux 05/31/2015 05/31/2015 Abdominal pain, left upper quadrant 05/31/2015 05/31/2015 C. difficile diarrhea 07/07/20142014 Other acne 08/24/2007 07/07/2014 documented as of this encounter (statuses as of 09/20/2023) [facility] History of Past illness Narrative* Problem Noted Date Diagnosed Date Resolved Date Encounter for supervision of normal first in third trimester 12/11/2015 04/04/2016 Encounter for supervision of normal first in second trimester 09/19/2015 04/04/2016 Esophageal reflux 05/31/2015 05/31/2015 Abdominal pain, left upper quadrant 05/31/2015 05/31/2015 C. difficile diarrhea 07/07/20142014 Other acne 08/24/2007 07/07/2014 documented as of this encounter (statuses as of 09/20/2023) [facility] History of Past illness Narrative* Problem Noted Date Diagnosed Date Resolved Date Encounter for supervision of normal first in third trimester 12/11/2015 04/04/2016 Encounter for supervision of normal first in second trimester 09/19/2015 04/04/2016 Esophageal reflux 05/31/2015 05/31/2015 Abdominal pain, left upper quadrant 05/31/2015 05/31/2015 C. difficile diarrhea 07/07/20142014 Other acne 08/24/2007 07/07/2014 documented as of this encounter (statuses as of 09/20/2023) [facility] History of Past illness Narrative* Problem Noted Date Diagnosed Date Resolved Date Encounter for supervision of normal first in third trimester 12/11/2015 04/04/2016 Encounter for supervision of normal first in second trimester 09/19/2015 04/04/2016 Esophageal reflux 05/31/2015 05/31/2015 Abdominal pain, left upper quadrant 05/31/2015 05/31/2015 C. difficile diarrhea 07/07/20142014 Other acne 08/24/2007 07/07/2014 documented as of this encounter (statuses as of 09/23/2023) [facility] History of Past illness Narrative* Problem Noted Date Diagnosed Date Resolved Date Encounter for supervision of normal first in third trimester 12/11/2015 04/04/2016 Encounter for supervision of normal first in second trimester 09/19/2015 04/04/2016 Esophageal reflux 05/31/2015 05/31/2015 Abdominal pain, left upper quadrant 05/31/2015 05/31/2015 C. difficile diarrhea 07/07/20142014 Other acne 08/24/2007 07/07/2014 documented as of this encounter (statuses as of 09/24/2023) [facility] History of Past illness Narrative* Problem Noted Date Diagnosed Date Resolved Date Encounter for supervision of normal first in third trimester 12/11/2015 04/04/2016 Encounter for supervision of normal first in second trimester 09/19/2015 04/04/2016 Esophageal reflux 05/31/2015 05/31/2015 Abdominal pain, left upper quadrant 05/31/2015 05/31/2015 C. difficile diarrhea 07/07/20142014 Other acne 08/24/2007 07/07/2014 documented as of this encounter (statuses as of 11/06/2023) [facility] History of Past illness Narrative* Problem Noted Date Diagnosed Date Resolved Date Encounter for supervision of normal first in third trimester 12/11/2015 04/04/2016 Encounter for supervision of normal first in second trimester 09/19/2015 04/04/2016 Esophageal reflux 05/31/2015 05/31/2015 Abdominal pain, left upper quadrant 05/31/2015 05/31/2015 C. difficile diarrhea 07/07/20142014 Other acne 08/24/2007 07/07/2014 documented as of this encounter (statuses as of 12/18/2023) [facility] Diagnosis Diet controlled gestational diabetes mellitus (GDM) in third trimester- Primary 36 weeks gestation of state, incidental [facility] Diagnosis Abnormal maternal glucose tolerance, antepartum [facility] Diagnosis Late care affecting in second trimester- Primary Family history of Down syndrome Family history of congenital anomalies 37 weeks gestation of state, incidental Anemia during in third trimester [facility] Diagnosis Diet controlled gestational diabetes mellitus (GDM) in third trimester- Primary 38 weeks gestation of state, incidental [facility] Diagnosis Amniotic fluid leaking- Primary Premature rupture of membranes in , unspecified as to episode of care 38 weeks gestation of state, incidental Diet controlled gestational diabetes mellitus (GDM) in third trimester [facility] Diagnosis Diet controlled gestational diabetes mellitus (GDM) in third trimester- Primary 39 weeks gestation of state, incidental [facility] Diagnosis Gestational diabetes mellitus, class A1- Primary Abnormal maternal glucose tolerance, complicating , childbirth, or the puerperium, unspecified as to episode of care 39 weeks gestation of state, incidental [facility] Diagnosis care and examination immediately after delivery- Primary [facility] Diagnosis Numbness and tingling in left hand- Primary Disturbance of skin sensation [facility] Diagnosis care and examination- Primary Routine follow-up documented [facility] this [facility] Diagnosis Encounter for IUD insertion- Primary Encounter for insertion of intrauterine contraceptive device [facility] Diagnosis History of gestational diabetes- Primary Personal history of gestational diabetes documented [facility] Diagnosis Encounter for gynecological examination with abnormal finding- Primary Routine gynecological examination Pain due to intrauterine contraceptive device (IUD), initial encounter (HCC) Encounter for IUD removal Encounter for removal of intrauterine contraceptive device Screening for cervical cancer Screening for malignant neoplasm of the cervix Encounter for screening for human papillomavirus (HPV) Special screening examination for human papillomavirus (HPV) documented [facility] this encounter [facility] Diagnosis Acute constipation- Primary Unspecified constipation [facility] Diagnosis Acute constipation- Primary Unspecified constipation [facility] Diagnosis Diarrhea, unspecified type- Primary Mouth sores Other and unspecified diseases of the oral soft tissues [facility] Diagnosis Encounter for other general counseling or advice on contraception- Primary Arthralgia, unspecified joint [facility] Diagnosis Pain in joint, multiple sites- Primary Joint stiffness Stiffness of joint, not elsewhere classified, unspecified site Joint swelling Effusion of joint, site unspecified [facility] Diagnosis Mouth pain- Primary Other and unspecified diseases of the oral soft tissues Irregular periods/menstrual cycles Irregular menstrual cycle [facility] Diagnosis Sore throat- Primary Acute pharyngitis TMJ dysfunction Temporomandibular joint disorders, unspecified [facility] Diagnosis Gastroesophageal reflux disease with esophagitis without hemorrhage- Primary Sore throat Acute pharyngitis Situational anxiety Other anxiety states [facility] Diagnosis Fatty liver- Primary Other chronic nonalcoholic liver disease Myalgia Mylagia and myositis, unspecified Chills Chills (without fever) Fatigue, unspecified type Fatty food intolerance Other specified intestinal malabsorption Sore throat Acute pharyngitis Mouth ulcer Other and unspecified diseases of the oral soft tissues Paresthesias Disturbance of skin sensation Epigastric pain Abdominal pain, epigastric [facility]* Diagnosis Nausea- Primary Nausea alone Hyperbilirubinemia Jaundice, unspecified, not of [facility]* Diagnosis Sore throat- Primary Acute pharyngitis [facility]* Diagnosis Pelvic pain in female- Primary Unspecified symptom associated with female genital organs 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 [facility]* Diagnosis Well adult exam- Primary Routine general medical examination at a health care facility Nausea Nausea alone GERD without esophagitis Esophageal reflux Hyperbilirubinemia Jaundice, unspecified, not of Fatty liver Other chronic nonalcoholic liver disease Fatty food intolerance Other specified intestinal malabsorption Bruises easily Other symptoms involving skin and integumentary tissues Fatigue, unspecified type [facility]* Diagnosis Dyslipidemia- Primary Other and unspecified hyperlipidemia Nausea Nausea alone GERD without esophagitis Esophageal reflux Hyperbilirubinemia Jaundice, unspecified, not of Fatty liver Other chronic nonalcoholic liver disease Fatty food intolerance Other specified intestinal malabsorption [facility]* Diagnosis Sore throat- Primary Acute pharyngitis Dysphagia, unspecified type [facility]* Diagnosis Dysphagia, unspecified type- Primary Odynophagia Dysphagia, unspecified Sore throat Acute pharyngitis Globus sensation Gastrointestinal malfunction arising from mental factors Adjustment reaction to chronic stress Unspecified adjustment reaction Hoarseness Dysphonia Fatty liver Other chronic nonalcoholic liver disease Fatty food intolerance Other specified intestinal malabsorption Hyperbilirubinemia Jaundice, unspecified, not of Nausea Nausea alone documented in this encounter [facility] note* Diagnosis Hair thinning- Primary Alopecia, unspecified Mouth sores Other and unspecified diseases of the oral soft tissues Sore throat Acute pharyngitis Epigastric pain Abdominal pain, epigastric GERD without esophagitis Esophageal reflux Stress and adjustment reaction Other specified adjustment reaction CASEY (generalized anxiety disorder) Generalized anxiety disorder documented in this encounter [facility] note* Diagnosis Dysphagia, unspecified type- Primary Sore throat Acute pharyngitis Hoarseness Dysphonia documented in this encounter [facility] note* Diagnosis Sore throat Acute pharyngitis Dysphagia, unspecified type Hoarseness Dysphonia Heartburn documented in this encounter [facility] note* Diagnosis Sore throat- Primary Acute pharyngitis Hoarseness Dysphonia Dysphagia, unspecified type documented in this encounter [facility] note* Diagnosis Pelvic pain in female Unspecified symptom associated with female genital organs documented in this encounter [facility] note* Diagnosis Nausea Nausea alone documented in this encounter [facility] note* Diagnosis Pain in joint, multiple sites documented in this encounter [facility] note* Diagnosis Pain- Primary Generalized pain documented in this encounter [facility] note* Diagnosis Dysphagia, unspecified type- Primary documented in this encounter [facility] note* Diagnosis Sore throat- Primary Acute pharyngitis Strep throat Streptococcal sore throat documented in this encounter [facility] note* Diagnosis Strep throat- Primary Streptococcal sore throat documented in this encounter [facility] (narrative)* Outpatient Procedure (Routine) - Pending Review Specialty Diagnoses / Procedures Referred By Kevin canales Referred To Contact [facility] Diagnoses Encounter for IUD insertion Procedures INSERT INTRAUTERINE DEVICE LEVONORGESTREL IU 52MG 5 YR INSERT INTRAUTERINE DEVICE Meghna Mensah MD [address] [place] [address] [facility] [address] [place] [address] Referral ID Status Reason Start Date Expiration Date Visits Requested Visits Authorized [id number] Pending Review Auto-Generat ed Referral 2 11/05/2023 1 1 [facility] for referral (narrative)* Diagnostic Procedure Only (Routine) - Pending Review Specialty Diagnoses / Procedures Referred By Contac t Referred To Contact XR IMAGING Diagnoses Pain in joint, multiple sites Procedures XR FOOT GENERAL 3V AP/LAT/OBL BILATERAL RADEX FOOT COMPLETE MINIMUM 3 VIEWS Matteo Ruiz MD [address] [place] [address] Xr Imaging Referral ID Status Reason Start Date Expiration Date Visits Requested Visits Authorized [id number] Pending Review Auto-Generat ed Referral 01/28/2023 02/27/2024 1 1 * Diagnostic Procedure Only (Routine) - Pending Review Specialty Diagnoses / Procedures Referred By Contac t Referred To Contact XR IMAGING Diagnoses Pain in joint, multiple sites Procedures XR HAND GENERAL 3V PA/LAT/OBL BILATERAL RADEX HAND MINIMUM 3 VIEWS Matteo Ruiz MD [address] [place] [address] Xr Imaging Referral ID Status Reason Start Date Expiration Date Visits Requested Visits Authorized [id number] Pending Review Auto-Generat ed Referral 01/28/2023 02/27/2024 1 1 * Diagnostic Procedure Only (Routine) - Pending Review Specialty Diagnoses / Procedures Referred By Contac t Referred To Contact US IMAGING Diagnoses Pain in joint, multiple sites Procedures US FOOT/ANKLE SYNOVIAL SCREEN LT US LMTD JOINT/OTH NONVASC XTR STRUX R-T W/IMG Matteo Ruiz MD [address] [place] [id number] Us Imaging Referral ID Status Reason Start Date Expiration Date Visits Requested Visits Authorized [id number] Pending Review Auto-Generat ed Referral 01/28/2023 02/27/2024 1 1 * Diagnostic Procedure Only (Routine) - Pending Review Specialty Diagnoses / Procedures Referred By Contac t Referred To Contact US IMAGING Diagnoses Pain in joint, multiple sites Procedures US FOOT/ANKLE SYNOVIAL SCREEN RT US COMPL JOINT R-T W/IMAGE DOCUMENTATION Matteo Ruiz MD [address] [address] Us Imaging Referral ID Status Reason Start Date Expiration Date Visits Requested Visits Authorized [id number] Pending Review Auto-Generat ed Referral 01/28/2023 02/27/2024 1 1 * Diagnostic Procedure Only (Routine) - Pending Review Specialty Diagnoses / Procedures Referred By Contac t Referred To Contact US IMAGING Diagnoses Pain in joint, multiple sites Procedures US HAND/WRIST SYNOVIAL SCREEN LT US COMPL JOINT R-T W/IMAGE DOCUMENTATION Matteo Ruiz MD [address] [place] [address] Us Imaging Referral ID Status Reason Start Date Expiration Date Visits Requested Visits Authorized [id number] Pending Review Auto-Generat ed Referral 01/28/2023 02/27/2024 1 1 * Diagnostic Procedure Only (Routine) - Pending Review Specialty Diagnoses / Procedures Referred By Contac t Referred To Contact US IMAGING Diagnoses Pain in joint, multiple sites Procedures US HAND/WRIST SYNOVIAL SCREEN RT US COMPL JOINT R-T W/IMAGE DOCUMENTATION Matteo Ruiz MD [address] [place] [address] Us Imaging Referral ID Status Reason Start Date Expiration Date Visits Requested Visits Authorized [id number] Pending Review Auto-Generat ed Referral 01/28/2023 02/27/2024 1 1 [facility] for [facility] (narrative)* Diagnostic Procedure Only (Routine) - Closed Specialty Diagnoses / Procedures Referred By Contac t Referred To Contact US IMAGING Diagnoses Fatty liver Procedures US ABD RIGHT UPPER QUADRANT US ABDOMINAL REAL TIME W/IMAGE LIMITED Tristin Verdugo, DO [address] [place] [address] Us Imaging Referral ID Status Reason Start Date Expiration Date V isits Requested Visits Authorized [id number] Closed Patient Cleared - Qualified 100% FAS 03/20/2023 03/22/2023 1 1 [facility] for referral (narrative)* Diagnostic Procedure Only (Routine) - Pending Review Specialty Diagnoses / Procedures Referred By Contac t Referred To Contact [facility]CULAR [facility] FUN[facility]AL [facility] Diagnoses Nausea Procedures NM HEPATOBILIARY W EF AND/OR RX HEPATOBIL SYST IMAG INC GB W/PHARMA INTERVENJ Tristin Verdugo, DO [address] [place] [address] [facility] [address] [place] [address] Referral ID Status Reason Start Date Expiration Date Visits Requested Visits Authorized [id number] Pending Review Auto-Generat ed Referral 03/26/2023 04/24/2024 1 1 [facility] for referral (narrative)* Outpatient Procedure (Routine) - Authorized Specialty Diagnoses / Procedures Referred By Contac t Referred To Contact [facility] Diagnoses Sore throat Hoarseness Procedures PH SAMANIEGO INSERT OFF MEDS GASTROESOPHAG REFLX TEST W/TELEMTRY PH Denise Alegria APRN.[employer]IST [address] [place] [address] [facility] [address] [place] [address] Referral ID Status Reason Start Date Expiration Date Visits Requested Visits Authorized [id number] Authorized Auto-Generat ed Referral 07/21/2023 07/20/2024 1 1 * Outpatient Procedure (Routine) - Authorized Specialty Diagnoses / Procedures Referred By Contac t Referred To Contact [facility] Diagnoses Sore throat Dysphagia, unspecified type Hoarseness Procedures EGD - THERAPEUTIC, EUS, OR TUBE INTERVENTIONS ESOPHAGOGASTRODUODENOSC OPY TRANSORAL DIAGNOSTIC Denise Holt APRN.FIBER ARTIST [address] [place] [address] [facility] [address] [place] [id number] Referral ID Status Reason Start Date Expiration Date Visits Requested Visits Authorized [id number] Authorized Auto-Generat ed Referral 07/21/2023 07/21/2024 1 1 [facility] for referral (narrative)* Outpatient Procedure (Routine) - Closed Specialty Diagnoses / Procedures Referred By Contac t Referred To Contact [facility] Diagnoses Sore throat Dysphagia, unspecified type Hoarseness Procedures EGD - THERAPEUTIC, EUS, OR TUBE INTERVENTIONS ESOPHAGOGASTRODUODENOSC OPY TRANSORAL DIAGNOSTIC Denise Holt APRN.FIBER ARTIST [address] [place] [address] [facility] [address] [place] [address] Referral ID Status Reason Start Date Expiration Date V isits Requested Visits Authorized [id number] Closed Auto-Generate d Referral 07/21/2023 07/21/2024 1 1 [facility] for referral (narrative)* Diagnostic Procedure Only (Routine) - Closed Specialty Diagnoses / Procedures Referred By Contac t Referred To Contact US IMAGING Diagnoses Pelvic pain in female Procedures US FEMALE PELVIS TRANSVAG US TRANSVAGINAL Delilah Burkett APRN.CNM [address] [place] [address] Us Imaging [facility] Referral ID Status Reason Start Date Expiration Date V isits Requested Visits Authorized [id number] Closed Auto-Generate d Referral 06/17/2023 07/16/2024 1 1 [facility] for referral (narrative)* Diagnostic Procedure Only (Routine) - Closed Specialty Diagnoses / Procedures Referred By Contac t Referred To Contact [facility] Diagnoses Nausea Procedures NM HEPATOBILIARY W EF AND/OR RX HEPATOBIL SYST IMAG INC GB W/PHARMA INTERVENJ Tristin Verdugo, [address] [place] [address] [facility] [address] [place] [address] Referral ID Status Reason Start Date Expiration Date V isits Requested Visits Authorized [id number] Closed Auto-Generate d Referral 03/26/2023 04/24/2024 1 1 [facility] for referral (narrative)* Diagnostic Procedure Only (Routine) - Closed Specialty Diagnoses / Procedures Referred By Contac t Referred To Contact XR IMAGING Diagnoses Pain in joint, multiple sites Procedures XR FOOT GENERAL 3V AP/LAT/OBL BILATERAL RADEX FOOT COMPLETE MINIMUM 3 VIEWS Matteo Ruiz MD [address] [place] [address] Xr Imaging [place] [address] Referral ID Status Reason Start Date Expiration Date V isits Requested Visits Authorized [id number] Closed Auto-Generate d Referral 01/28/2023 02/27/2024 1 1 * Diagnostic Procedure Only (Routine) - Closed Specialty Diagnoses / Procedures Referred By Contac t Referred To Contact XR IMAGING Diagnoses Pain in joint, multiple sites Procedures XR HAND GENERAL 3V PA/LAT/OBL BILATERAL RADEX HAND MINIMUM 3 VIEWS Matteo Ruiz MD [address] [place] [id number] Xr Imaging [facility] Referral ID Status Reason Start Date Expiration Date V isits Requested Visits Authorized [id number] Closed Auto-Generate d Referral 01/28/2023 02/27/2024 1 1 [facility] for visit Narrative* Outpatient Procedure (Routine) - Closed Specialty Diagnoses / Procedures Referred By Contac t Referred To Contact [facility] Diagnoses Sore throat Dysphagia, unspecified type Hoarseness Procedures EGD - THERAPEUTIC, EUS, OR TUBE INTERVENTIONS ESOPHAGOGASTRODUODENOSC OPY TRANSORAL DIAGNOSTIC Denise Holt APRN.[facility] [address] [place] [id number] [facility] [address] [place] [phone] Referral ID Status Reason Start Date Expiration Date V isits Requested Visits Authorized [id number] Closed Auto-Generate d Referral 07/21/2023 07/21/2024 1 1 [facility] for visit Narrative* Diagnostic Procedure Only (Routine) - Closed Specialty Diagnoses / Procedures Referred By Contac t Referred To Contact XR IMAGING Diagnoses Pain in joint, multiple sites Procedures XR FOOT GENERAL 3V AP/LAT/OBL BILATERAL RADEX FOOT COMPLETE MINIMUM 3 VIEWS Matteo Ruiz MD [address] [facility] [place] [id number] Xr Imaging [facility] Referral ID Status Reason Start Date Expiration Date V isits Requested Visits Authorized [id number] Closed Auto-Generate d Referral 01/28/2023 02/27/2024 1 1 [facility] Medications Administered Section Inactive Administered Medications - up to 3 most recent administrations Medication Order MAR Action Action Date Dose Rate Site levonorgestrel 20 mcg/24 hours (8 yrs) 52 mg 1 Each intrauterine device (MIRENA) 1 Each, INTRAUTERINE, ONCE (UP TO 30 DAYS AMB), 1 dose, On Thu11/05/22 at 1600, Hazardous Potential Reproductive Risk Drug: Use appropriate PPE. Given 11/05/2022 3:58 PM EST 1 Each Other Inactive Administered Medications - up to 3 most recent administrations Medication Order MAR Action Action Date Dose Rate Site benzocaine 20% (TOPEX) TOPICAL, X (OR/PROCEDURE) PRN, Starting on Megan 09/10/23 at 1141, Until Megan 09/10/23 at 1141, Intraprocedure Given 09/10/2023 11:41 AM EDT 1 [place] diazePAM injection (VALIUM) X (OR/PROCEDURE) PRN, Starting on Megan 09/10/23 at 1142, Until Megan 09/10/23 at 1145, Intraprocedure Given 09/10/2023 11:45 AM EDT 5 mg Health Concerns Infection Onset Date Last Indicated Resolved Time Mumps Rule-Out 03/20/2023 03/20/2023 03/24/2023 2: 27 AM EDT Reason for Referral Specialty Diagnoses / Procedures Referred By Contac t Referred To Contact [facility] Diagnoses Pelvic pain in female Procedures CONSULT TO PHYSICAL THERAPY PHYSICAL THERAPY EVALUATION HIGH COMPLEX 45 MINS Delilah Burkett APRN.CNM [address] [place] [address] [facility] [address] [place] [address] Referral ID Status Reason Start Date Expiration Date Visits Requested Visits Authorized [id number] Pending Review Auto-Generat ed Referral 06/17/2023 06/16/2024 1 1 Specialty Diagnoses / Procedures Referred By Contac t Referred To Contact US IMAGING Diagnoses Pelvic pain in female Procedures US FEMALE PELVIS TRANSVAG US TRANSVAGINAL Delilah Burkett APRN.CNM [address] [place] [address] Us Imaging Referral ID Status Reason Start Date Expiration Date Visits Requested Visits Authorized [id number] Pending Review Auto-Generat ed Referral 06/17/2023 07/16/2024 1 1 Specialty Diagnoses / Procedures Referred By Contac t Referred To Contact Gastroenterology Diagnoses Nausea GERD without esophagitis Hyperbilirubinemia Fatty liver Fatty food intolerance Procedures CONSULT TO GASTROENTEROLOGY OFFICE/OUTPATIENT NEW HIGH MDM 60-74 MINUTES Tristin Verdugo L, DO [address] [place] [address] Referral ID Status Reason Start Date Expiration Date Visits Requested Visits Authorized [id number] Authorized PCP Requested Referral 06/17/2023 06/16/2024 1 1 Specialty Diagnoses / Procedures Referred By Contac t Referred To Contact Nutrition Diagnoses Nausea GERD without esophagitis Hyperbilirubinemia Fatty liver Fatty food intolerance Procedures CONSULT TO NUTRITION THERAPY MEDICAL NUTRITION ASSMT&IVNTJ INDIV EACH 15 CA MEDICAL NUTRITION ASSMT&IVNTJ INDIV EACH 15 CA MEDICAL NUTRITION ASSMT&IVNTJ INDIV EACH 15 [place] MEDICAL NUTRITION ASSMT&IVNTJ INDIV EACH 15 CA Tristin Verdugo, DO [address] [place] [address] Referral ID Status Reason Start Date Expiration Date Visits Requested Visits Authorized [id number] Authorized PCP Requested Referral 06/16/2023 06/15/2024 1 1 Specialty Diagnoses / Procedures Referred By Contac t Referred To Contact Gastroenterology Diagnoses Sore throat Procedures CONSULT TO GASTROENTEROLOGY OFFICE/OUTPATIENT [facility] 60-74 MINUTES Lexi Velez APRN.FIBER ARTIST [address] [place] [address] Referral ID Status Reason Start Date Expiration Date Visits Requested Visits Authorized [id number] Authorized PCP Requested Referral 07/03/2023 07/02/2024 1 1 Summary Purpose Family History No Family History Records Found Advance Directives No Advanced Directives Records Found Additional Source Comments Source Comments (unrecognize d section and content) In the event this informatio n is protected by the Federal Confidentiality of Alcohol and Drug Abuse Patient Records regulations: The Federal rules restrict any use of the information to criminally investigate or prosecute any alcohol or drug abuse patient.[facility]In the event this information is protected by the Federal Confidentiality of Alcohol and Drug Abuse Patient Records regulations: The Federal rules restrict any use of the information to criminally investigate or prosecute any alcohol or drug abuse patient.[facility] HospitalIn the event this information is protected by the Federal Confidentiality of Alcohol and Drug Abuse Patient Records regulations: The Federal rules restrict any use of the information to criminally investigate or prosecute any alcohol or drug abuse patient.[facility] HospitalIn the event this information is protected by the Federal Confidentiality of Alcohol and Drug Abuse Patient Records regulations: The Federal rules restrict any use of the information to criminally investigate or prosecute any alcohol or drug abuse patient.[facility] HospitalIn the event this information is protected by the Federal Confidentiality of Alcohol and Drug Abuse Patient Records regulations: The Federal rules restrict any use of the information to criminally investigate or prosecute any alcohol or drug abuse patient.[facility] HospitalIn the event this information is protected by the Federal Confidentiality of Alcohol and Drug Abuse Patient Records regulations: The Federal rules restrict any use of the information to criminally investigate or prosecute any alcohol or drug abuse patient.[facility] HospitalIn the event this information is protected by the Federal Confidentiality of Alcohol and Drug Abuse Patient Records regulations: The Federal rules restrict any use of the information to criminally investigate or prosecute any alcohol or drug abuse patient.[facility] HospitalIn the event this information is protected by the Federal Confidentiality of Alcohol and Drug Abuse Patient Records regulations: The Federal rules restrict any use of the information to criminally investigate or prosecute any alcohol or drug abuse patient.[facility] HospitalIn the event this information is protected by the Federal Confidentiality of Alcohol and Drug Abuse Patient Records regulations: The Federal rules restrict any use of the information to criminally investigate or prosecute any alcohol or drug abuse patient.[facility] HospitalIn the event this information is protected by the Federal Confidentiality of Alcohol and Drug Abuse Patient Records regulations: The Federal rules restrict any use of the information to criminally investigate or prosecute any alcohol or drug abuse patient.[facility] HospitalIn the event this information is protected by the Federal Confidentiality of Alcohol and Drug Abuse Patient Records regulations: The Federal rules restrict any use of the information to criminally investigate or prosecute any alcohol or drug abuse patient.[facility] HospitalIn the event this information is protected by the Federal Confidentiality of Alcohol and Drug Abuse Patient Records regulations: The Federal rules restrict any use of the information to criminally investigate or prosecute any alcohol or drug abuse patient.[facility] HospitalIn the event this information is protected by the Federal Confidentiality of Alcohol and Drug Abuse Patient Records regulations: The Federal rules restrict any use of the information to criminally investigate or prosecute any alcohol or drug abuse patient.[facility] HospitalIn the event this information is protected by the Federal Confidentiality of Alcohol and Drug Abuse Patient Records regulations: The Federal rules restrict any use of the information to criminally investigate or prosecute any alcohol or drug abuse patient.[facility] HospitalIn the event this information is protected by the Federal Confidentiality of Alcohol and Drug Abuse Patient Records regulations: The Federal rules restrict any use of the information to criminally investigate or prosecute any alcohol or drug abuse patient.[facility] HospitalIn the event this information is protected by the Federal Confidentiality of Alcohol and Drug Abuse Patient Records regulations: The Federal rules restrict any use of the information to criminally investigate or prosecute any alcohol or drug abuse patient.[facility] HospitalIn the event this information is protected by the Federal Confidentiality of Alcohol and Drug Abuse Patient Records regulations: The Federal rules restrict any use of the information to criminally investigate or prosecute any alcohol or drug abuse patient.[facility] HospitalIn the event this information is protected by the Federal Confidentiality of Alcohol and Drug Abuse Patient Records regulations: The Federal rules restrict any use of the information to criminally investigate or prosecute any alcohol or drug abuse patient.[facility] HospitalIn the event this information is protected by the Federal Confidentiality of Alcohol and Drug Abuse Patient Records regulations: The Federal rules restrict any use of the information to criminally investigate or prosecute any alcohol or drug abuse patient.[facility] HospitalIn the event this information is protected by the Federal Confidentiality of Alcohol and Drug Abuse Patient Records regulations: The Federal rules restrict any use of the information to criminally investigate or prosecute any alcohol or drug abuse patient.[facility] HospitalIn the event this information is protected by the Federal Confidentiality of Alcohol and Drug Abuse Patient Records regulations: The Federal rules restrict any use of the information to criminally investigate or prosecute any alcohol or drug abuse patient.[facility] HospitalIn the event this information is protected by the Federal Confidentiality of Alcohol and Drug Abuse Patient Records regulations: The Federal rules restrict any use of the information to criminally investigate or prosecute any alcohol or drug abuse patient.[facility] HospitalIn the event this information is protected by the Federal Confidentiality of Alcohol and Drug Abuse Patient Records regulations: The Federal rules restrict any use of the information to criminally investigate or prosecute any alcohol or drug abuse patient.[facility] HospitalIn the event this information is protected by the Federal Confidentiality of Alcohol and Drug Abuse Patient Records regulations: The Federal rules restrict any use of the information to criminally investigate or prosecute any alcohol or drug abuse patient.[facility] HospitalIn the event this information is protected by the Federal Confidentiality of Alcohol and Drug Abuse Patient Records regulations: The Federal rules restrict any use of the information to criminally investigate or prosecute any alcohol or drug abuse patient.[facility] HospitalIn the event this information is protected by the Federal Confidentiality of Alcohol and Drug Abuse Patient Records regulations: The Federal rules restrict any use of the information to criminally investigate or prosecute any alcohol or drug abuse patient.[facility] HospitalIn the event this information is protected by the Federal Confidentiality of Alcohol and Drug Abuse Patient Records regulations: The Federal rules restrict any use of the information to criminally investigate or prosecute any alcohol or drug abuse patient.[facility] HospitalIn the event this information is protected by the Federal Confidentiality of Alcohol and Drug Abuse Patient Records regulations: The Federal rules restrict any use of the information to criminally investigate or prosecute any alcohol or drug abuse patient.[facility] HospitalIn the event this information is protected by the Federal Confidentiality of Alcohol and Drug Abuse Patient Records regulations: The Federal rules restrict any use of the information to criminally investigate or prosecute any alcohol or drug abuse patient.[facility] HospitalIn the event this information is protected by the Federal Confidentiality of Alcohol and Drug Abuse Patient Records regulations: The Federal rules restrict any use of the information to criminally investigate or prosecute any alcohol or drug abuse patient.[facility] HospitalIn the event this information is protected by the Federal Confidentiality of Alcohol and Drug Abuse Patient Records regulations: The Federal rules restrict any use of the information to criminally investigate or prosecute any alcohol or drug abuse patient.[facility] HospitalIn the event this information is protected by the Federal Confidentiality of Alcohol and Drug Abuse Patient Records regulations: The Federal rules restrict any use of the information to criminally investigate or prosecute any alcohol or drug abuse patient.[facility] HospitalIn the event this information is protected by the Federal Confidentiality of Alcohol and Drug Abuse Patient Records regulations: The Federal rules restrict any use of the information to criminally investigate or prosecute any alcohol or drug abuse patient.[facility] HospitalIn the event this information is protected by the Federal Confidentiality of Alcohol and Drug Abuse Patient Records regulations: The Federal rules restrict any use of the information to criminally investigate or prosecute any alcohol or drug abuse patient.[facility] HospitalIn the event this information is protected by the Federal Confidentiality of Alcohol and Drug Abuse Patient Records regulations: The Federal rules restrict any use of the information to criminally investigate or prosecute any alcohol or drug abuse patient.[facility] HospitalIn the event this information is protected by the Federal Confidentiality of Alcohol and Drug Abuse Patient Records regulations: The Federal rules restrict any use of the information to criminally investigate or prosecute any alcohol or drug abuse patient.[facility] HospitalIn the event this information is protected by the Federal Confidentiality of Alcohol and Drug Abuse Patient Records regulations: The Federal rules restrict any use of the information to criminally investigate or prosecute any alcohol or drug abuse patient.[facility] HospitalIn the event this information is protected by the Federal Confidentiality of Alcohol and Drug Abuse Patient Records regulations: The Federal rules restrict any use of the information to criminally investigate or prosecute any alcohol or drug abuse patient.[facility] HospitalIn the event this information is protected by the Federal Confidentiality of Alcohol and Drug Abuse Patient Records regulations: The Federal rules restrict any use of the information to criminally investigate or prosecute any alcohol or drug abuse patient.[facility] HospitalIn the event this information is protected by the Federal Confidentiality of Alcohol and Drug Abuse Patient Records regulations: The Federal rules restrict any use of the information to criminally investigate or prosecute any alcohol or drug abuse patient.[facility] HospitalIn the event this information is protected by the Federal Confidentiality of Alcohol and Drug Abuse Patient Records regulations: The Federal rules restrict any use of the information to criminally investigate or prosecute any alcohol or drug abuse patient.[facility] HospitalIn the event this information is protected by the Federal Confidentiality of Alcohol and Drug Abuse Patient Records regulations: The Federal rules restrict any use of the information to criminally investigate or prosecute any alcohol or drug abuse patient.[facility] HospitalIn the event this information is protected by the Federal Confidentiality of Alcohol and Drug Abuse Patient Records regulations: The Federal rules restrict any use of the information to criminally investigate or prosecute any alcohol or drug abuse patient.[facility] HospitalIn the event this information is protected by the Federal Confidentiality of Alcohol and Drug Abuse Patient Records regulations: The Federal rules restrict any use of the information to criminally investigate or prosecute any alcohol or drug abuse patient.[facility] HospitalIn the event this information is protected by the Federal Confidentiality of Alcohol and Drug Abuse Patient Records regulations: The Federal rules restrict any use of the information to criminally investigate or prosecute any alcohol or drug abuse patient.[facility] HospitalIn the event this information is protected by the Federal Confidentiality of Alcohol and Drug Abuse Patient Records regulations: The Federal rules restrict any use of the information to criminally investigate or prosecute any alcohol or drug abuse patient.[facility] HospitalIn the event this information is protected by the Federal Confidentiality of Alcohol and Drug Abuse Patient Records regulations: The Federal rules restrict any use of the information to criminally investigate or prosecute any alcohol or drug abuse patient.[facility] HospitalIn the event this information is protected by the Federal Confidentiality of Alcohol and Drug Abuse Patient Records regulations: The Federal rules restrict any use of the information to criminally investigate or prosecute any alcohol or drug abuse patient.[facility] HospitalIn the event this information is protected by the Federal Confidentiality of Alcohol and Drug Abuse Patient Records regulations: The Federal rules restrict any use of the information to criminally investigate or prosecute any alcohol or drug abuse patient.[facility] HospitalIn the event this information is protected by the Federal Confidentiality of Alcohol and Drug Abuse Patient Records regulations: The Federal rules restrict any use of the information to criminally investigate or prosecute any alcohol or drug abuse patient.[facility] HospitalIn the event this information is protected by the Federal Confidentiality of Alcohol and Drug Abuse Patient Records regulations: The Federal rules restrict any use of the information to criminally investigate or prosecute any alcohol or drug abuse patient.[facility] HospitalIn the event this information is protected by the Federal Confidentiality of Alcohol and Drug Abuse Patient Records regulations: The Federal rules restrict any use of the information to criminally investigate or prosecute any alcohol or drug abuse patient.[facility] HospitalIn the event this information is protected by the Federal Confidentiality of Alcohol and Drug Abuse Patient Records regulations: The Federal rules restrict any use of the information to criminally investigate or prosecute any alcohol or drug abuse patient.[facility] Reason for Visit (unrecogniz ed section and content) Specialty Diagnoses / Procedures Referred By Kevin canales Referred To Contact Family Medicine / FAMILY MEDICINE Diagnoses Problem Visit, Eyes Swelling, Jaundice, no appetite, difficulty eating Procedures 4C EST Self Tristin Verdugo, [address] [place] [address] Referral ID Status Reason Start Date Expiration Date V isits Requested Visits Authorized [id number] Closed Patient Cleared - Qualified 100% FAS 03/20/2023 06/18/2023 99 99 Reason Comments Yearly Exam Reason Onset Date Comments Care 02/11/2022 Reason Onset Date Comments Refill Request 02/18/2022 Reason Onset Date Comments Care 02/21/2022 Reason Onset Date Comments Care 02/27/2022 Reason Comments Follow Up Reason Comments US Specialty Diagnoses / Procedures Referred By Kevin t Referred To Contact [facility] Diagnoses Diet controlled gestational diabetes mellitus (GDM) in third trimester Procedures OBSTETRIC ULTRASOUND WHI US PREG UTERUS AFTER 1ST TRIMEST GESTATION Meghna Mensah MD [address] [place] [address] [facility] [address] [place] [address] Referral ID Status Reason Start Date Expiration Date V isits Requested Visits Authorized [id number] Closed Auto-Generate d Referral 02/07/2022 02/07/2023 1 1 Reason Onset Date Comments Care 03/05/2022 Reason Comments Ob Delivery Note Reason Comments Early Reason Comments Pain left middle, ring an d index finger Reason Comments Care Reason Onset Date Comments Insertion Of IUD 11/05/2022 Specialty Diagnoses / Procedures Referred By Kevin canales Referred To Contact [facility] Diagnoses Encounter for contraceptive management, unspecified type Encounter for IUD insertion Encounter for removal of intrauterine contraceptive device Procedures INSERT INTRAUTERINE DEVICE LEVONORGESTREL IU 52MG 5 YR INSERT INTRAUTERINE DEVICE REMOVE INTRAUTERINE DEVICE Delilah Burkett APRN.CN [address] [place] [address] 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, having bms ,dizzy a little sob Reason Comments swollen jaw Neck hurts and diarr hea started last thursday Reason Comments Discussion Reason Comments New Patient Joint pain, Reason Comments Medication Problem Message regarding me dication intake Reason Comments Fever Fever, ulcer in righ t side of mouth, ST, diarrhea x 2 days Reason Comments jaw swollen States for past mari h , clicks and hurts to chew , mild sore throat hurts to swollow and fever Reason Comments Vaginal Problem Reason Comments Abdominal Pain Abdominal pain and n ausea Reason Comments tongue swelling Reason Comments Abdominal Pain Low appetite, yellow eyes, x 3 months Referral ID Status Reason Start Date Expiration Date Visits Requested Visits Authorized [id number] Authorized Patient Cleared - Qualified 100% FAS 03/20/2023 06/18/2023 99 99 Reason Comments Results Appointment Reason Comments Sore Throat R ear pain, REYNOSO x2 we eks Reason Comments Pelvic Pain Left lower, x1 month Reason Comments Patient Education Assessment Specialty Diagnoses / Procedures Referred By Contac t Referred To Contact Nutrition Diagnoses Nausea GERD without esophagitis Hyperbilirubinemia Fatty liver Fatty food intolerance Procedures CONSULT TO NUTRITION THERAPY MEDICAL NUTRITION ASSMT&IVNTJ INDIV EACH 15 CA MEDICAL NUTRITION ASSMT&IVNTJ INDIV EACH 15 CA MEDICAL NUTRITION ASSMT&IVNTJ INDIV EACH 15 CA MEDICAL NUTRITION ASSMT&IVNTJ INDIV EACH 15 CA Tristin Verdugo, DO [address] [place] [address] Referral ID Status Reason Start Date Expiration Date V isits Requested Visits Authorized [id number] Closed PCP Requested Referral 06/16/2023 06/15/2024 1 1 Reason Comments Mouth Sores Sore on roof of mout h sore throat x 3 weeks Reason Comments New Patient Trouble swallowing a nd abdominal pain Specialty Diagnoses / Procedures Referred By Contac t Referred To Contact Gastroenterology Diagnoses Nausea GERD without esophagitis Hyperbilirubinemia Fatty liver Fatty food intolerance Procedures CONSULT TO GASTROENTEROLOGY OFFICE/OUTPATIENT NEW HIGH MDM 60-74 MINUTES Tristin Verdugo, DO [address] [place] [address] Referral ID Status Reason Start Date Expiration Date V isits Requested Visits Authorized [id number] Closed PCP Requested Referral 06/17/2023 06/16/2024 1 1 Reason Comments sores in mouth, hair falling out, hands and legs swelling Reason Comments Education Of Patient/family Reason Onset Date Comments Procedure 09/10/2023 SAMANIEGO 48 Hour pH Capsule Placement Specialty Diagnoses / Procedures Referred By Contac t Referred To Contact [facility] Diagnoses Sore throat Hoarseness Procedures PH SAMANIEGO INSERT OFF MEDS GASTROESOPHAG REFLX TEST W/TELEMTRY PH Denise Alegria, ROSALIE.FIBER ARTIST [address] [place] [address] [facility] [address] [place] [address] Referral ID Status Reason Start Date Expiration Date V isits Requested Visits Authorized [id number] Closed Auto-Generate d Referral 07/21/2023 07/20/2024 1 1 Reason Onset Date Comments Procedure 09/17/2023 48 Hr SAMANIEGO pH D ownload Reason Comments Radiology US Specialty Diagnoses / Procedures Referred By Contac t Referred To Contact [facility] Diagnoses Pelvic pain in female Procedures US FEMALE PELVIS TRANSVAG US TRANSVAGINAL MadelaineDelilah APRN.CN [address] [place] [address] [place] [address] Referral ID Status Reason Start Date Expiration Date V isits Requested Visits Authorized [id number] Closed Auto-Generate d Referral 06/17/2023 07/16/2024 1 1 Reason Comments Pain left arm and leg kumar n x 2 weeks, right arm and leg pain x 1 week Reason Comments Recheck Specialty Diagnoses / Procedures Referred By Contac t Referred To Contact Gastroenterology Diagnoses Nausea GERD without esophagitis Hyperbilirubinemia Fatty liver Fatty food intolerance Procedures CONSULT TO GASTROENTEROLOGY OFFICE/OUTPATIENT [facility] 60-74 MINUTES Tristin Verdugo, DO [address] [place] [address] Reason Comments Orders Reason Comments Sore Throat Swollen glands, drai nage x 3 weeks Reason Comments Sore Throat ST x 3 weeks-positiv e for strep Care Teams (unrecognized sec tion and content) Machine Worker Relationship Specialty Start Date End Date Tristin Verdugo, DO [address] [place] [address] PCP - General Family Practice 02/14/13 Machine Worker Relationship Specialty Start Date End Date Tristin Verdugo DO [address] [place], [place] [address] PCP - General Family Practice 02/14/13 Machine Worker Relationship Specialty Start Date End Date Tristin Verdugo, DO [address] [place], [place] [address] PCP - General Family Practice 02/14/13 Machine Worker Relationship Specialty Start Date End Date Tristin Verdugo, DO [address] [place] [address] PCP - General Family Practice 02/14/13 Machine Worker Relationship Specialty Start Date End Date Tristin Verdugo, DO [address] [place] [address] PCP - General Family Practice 02/14/13 Machine Worker Relationship Specialty Start Date End Date Tristin Verdugo, DO [address] [place] [address] PCP - General Family Medicine 02/14/13 Machine Worker Relationship Specialty Start Date End Date Tristin Verdugo, DO [address] [place] [address] PCP - General Family Medicine 02/14/13 Machine Worker Relationship Specialty Start Date End Date Tristin Verdugo, DO [address] [place] [address] PCP - General Family Medicine 02/14/13 Machine Worker Relationship Specialty Start Date End Date Tristin Verdugo, DO [address] [place] [address] PCP - General Family Medicine 02/14/13 Machine Worker Relationship Specialty Start Date End Date Tristin Verdugo, DO [address] [place] [address] PCP - General Family Medicine 02/14/13 Machine Worker Relationship Specialty Start Date End Date Tristin Verdugo, DO [address] [place] [address] PCP - General Family Medicine 02/14/13 Machine Worker Relationship Specialty Start Date End Date Tristin Verdugo, DO [address] [place] [address] PCP - General Family Medicine 02/14/13 Machine Worker Relationship Specialty Start Date End Date Tristin Verdugo, DO [address] [place] [address] PCP - General Family Medicine 02/14/13 Machine Worker Relationship Specialty Start Date End Date Tristin Verdugo, DO [address] [place] [address] PCP - General Family Medicine 02/14/13 Machine Worker Relationship Specialty Start Date End Date Tristin Verdugo, DO [address] [place] [address] PCP - General Family Medicine 02/14/13 Machine Worker Relationship Specialty Start Date End Date Tristin Verdugo, DO [address] [place] [address] PCP - General Family Medicine 02/14/13 Machine Worker Relationship Specialty Start Date End Date Tristin Verdugo, DO [address] [place] [address] PCP - General Family Medicine 02/14/13 Machine Worker Relationship Specialty Start Date End Date Tristin Verdugo, DO [address] [place] [address] PCP - General Family Medicine 02/14/13 Machine Worker Relationship Specialty Start Date End Date Tristin Verdugo, DO [address] [place] [address] PCP - General Family Medicine 02/14/13 Machine Worker Relationship Specialty Start Date End Date Tristin Verdugo DO [address] [place] [address] PCP - General Family Medicine 02/14/13 Machine Worker Relationship Specialty Start Date End Date Tristin Verdugo DO [address] [place] [address] PCP - General Family Medicine 02/14/13 Machine Worker Relationship Specialty Start Date End Date Tristin Verdugo DO [address] [facility] [place] [address] PCP - General Family Medicine 02/14/13 Machine Worker Relationship Specialty Start Date End Date Tristin Verdugo DO [address] [place] [address] PCP - General Family Medicine 02/14/13 Machine Worker Relationship Specialty Start Date End Date Tristin Verdugo DO [address] [place] [address] PCP - General Family Medicine 02/14/13 Machine Worker Relationship Specialty Start Date End Date Tristin Verdugo DO [address] [place] [address] PCP - General Family Medicine 02/14/13 Machine Worker Relationship Specialty Start Date End Date Tristin Verdugo DO [address] [place] [address] PCP - General Family Medicine 02/14/13 Machine Worker Relationship Specialty Start Date End Date Tristin Verdugo DO [address] [place] [address] PCP - General Family Medicine 02/14/13 Machine Worker Relationship Specialty Start Date End Date Tristin Verdugo DO [address] [facility] [place] [address] PCP - General Family Medicine 02/14/13 Machine Worker Relationship Specialty Start Date End Date Tristin Verdugo DO [address] [facility] [place] [address] PCP - General Family Medicine 02/14/13 Machine Worker Relationship Specialty Start Date End Date Tristin Verdugo DO [address] [facility] [address] PCP - General Family Medicine 02/14/13 Machine Worker Relationship Specialty Start Date End Date Tristin Verdugo DO [address] [facility] [address] PCP - General Family Medicine 02/14/13 Machine Worker Relationship Specialty Start Date End Date Tristin Verdugo DO [address] [facility] [address] PCP - General Family Medicine 02/14/13 Machine Worker Relationship Specialty Start Date End Date Tristin Verdugo, [address] [facility] [address] PCP - General Family Medicine 02/14/13 INFORMATION SOURCE (unrecogn ized section and content) FOR RECORDS PERTAINING TO PATIENTS WHO ARE OR HAVE BEEN ENROLLED IN A CHEMICAL DEPENDENCY/SUBSTANCEABUSE PROGRAM, SOME INFORMATION MAY BE OMITTED. This clinical summary was aggregated from multiple sources. Caution should be exercised in using it in the provision of clinical care. This summary normalizes information from multiple sources, and as a consequence, information in this document may materially change the coding, format and clinical context of patient data. In addition, data may be omitted in some cases. CLINICAL DECISIONS SHOULD BE BASED ON THE PRIMARY CLINICAL RECORDS. [employer] provides no warranty or guarantee of the accuracy or completeness of information in this document.
== END 2023-12-18 17:29 | disposition home or self-care (01) ==
PROVIDERS: Emergency Provider Emergency Medicine; PCP Student in an Organized Health Care Education/Training Program; Visit Provider Emergency Medicine
DX: J02.0 Streptococcal pharyngitis (principal)
CPT/HCPCS: 87631; 99282